=== PATIENT | male | born 1935 | race Caucasian/White ===

== ENCOUNTER 2023-05-29 15:06 | Emergency (ER) | payer OTHER ==
[2023-05-29 16:43] LABS: Absolute Lymphocytes (CBC) 1.2 K/uL (0.7-4.9); Hematocrit 38.6 % (39.6-49.0); Lymphocytes % 19.4 % (15.3-44.8); MCV 102.7 fL (80-100); MPV 8.5 fL (7.6-11.3); Platelets 220 thou/uL (152-406); RBC Red Blood Cell Count 3.76 M/uL (4.33-5.43)
[2023-05-29 16:46] LABS: Protime INR 0.95
[2023-05-29 16:52] LABS: Potassium 4.6 mEq/L (3.5-5.1)
--- NOTE | 2023-05-29 17:14 | RAD REPORT ---
EXAM DESCRIPTION: US - Extrem Venous W Compress Andre - 05/29/2023 5:07 pm CLINICAL HISTORY: worsening leg swelling Bilateral leg edema and swelling. COMPARISON: <Comparisons> TECHNIQUE: Real-time sonographic interrogation of the left and right lower extremity deep venous sys tems was performed. FINDINGS: Normal compressibility, flow augmentation, phasic flow and spontaneous flow is identified in both the left and right lower extremity deep venous systems. IMPRESSION: No sonographic evidence of left or right lower extremity deep venous thrombosis.
--- NOTE | 2023-05-29 17:24 | RAD REPORT ---
EXAM DESCRIPTION: US - Lower Extremity Arterial Bilat - 05/29/2023 5:07 pm CLINICAL HISTORY: PAIN COMPARISON: <Comparisons> TECHNIQUE: Bilateral lower extremity arterial Doppler examination was performed. FINDINGS: Triphasic waveforms are seen throughout both lower extremity arterial systems to the level of the loree salis pedis arteries. No evidence of is significant stenosis or occlusion. IMPRESSION: No evidence of significant peripheral vascular disease.
--- NOTE | 2023-05-29 17:43 | RAD REPORT ---
EXAM DESCRIPTION: CT - Chest For Pe Angio - 05/29/2023 5:19 pm CLINICAL HISTORY: Chest pain. mid scapular pain, rule out PE COMPARISON: <Comparisons> TECHNIQUE: CT angiogram of the pulmonary arteries was performed with MIP. All CT scans are performed using dose optimization technique as appropriate and may include automated exposure control or mA/KV adjustment according to patient size. FINDINGS: No evidence of pulmonary thromboembolism. No acute aortic finding demonstrated. Mild linear opacities are present in both lung bases. Mild diffuse emphysema. Small hiatal hernia. No significant pericardial or pleural fluid. No concerning bony finding. IMPRESSION: No evidence of pulmonary thromboembolism. Mild diffuse COPD with atelectasis in both lung bases.
--- NOTE | 2023-05-29 18:31 | ER ---
Nurse's Notes [facility] Name: Ramesh Mesa Jr Age: 87 yrs Sex: Male : 1935 Arrival Date: 05/29/2023 Time: 15:06 Bed 12 Private MD: Diagnosis: Edema, unspecified Presentation: 05/29 16:10 Chief complaint: Patient states: pain to left leg for a couple of days, edema to LLE x me1 1 month. c/o pain to mid back. Coronavirus screen: Vaccine status: Patient reports receiving the 2nd dose of the covid vaccine. At this time, the client does not indicate any symptoms associated with coronavirus-19. Ebola Screen: No symptoms or risks identified at this time. Initial Sepsis Screen: Does the patient meet any 2 criteria? No. Patient's initial sepsis screen is negative. Does the patient have a suspected source of infection? No. Patient's initial sepsis screen is negative. Risk Assessment: Do you want to hurt yourself or someone else? Patient reports no desire to harm self or others. Onset of symptoms was May 25, 2023. 16:10 Method Of Arrival: Ambulatory nj1 16:10 Acuity: EDIN 3 me1 Historical: - Allergies: 16:13 No Known Allergies; me1 - PMHx: 16:13 Hypertensive disorder; migraines; right hand tremors; neuropathy; me1 - PSHx: 16:13 None; me1 - Immunization history:: Adult Immunizations up to date. - Social history:: Smoking status: Patient denies any tobacco usage or history of. - Family history:: not pertinent. - Hospitalizations: : No recent hospitalization is reported. Screenin:20 [facility] ED Fall Risk Assessment (Adult) History of falling in the last 3 months, me1 including since admission No falls in past 3 months (0 pts) Confusion or Disorientation No (0 pts) Intoxicated or Sedated No (0 pts) Impaired Gait No (0 pts) Mobility Assist Device Used No (0 pt) Altered Elimination No (0 pt) Score/Fall Risk Level 0 - 2 = Low Risk. Abuse screen: Denies threats or abuse. Nutritional screening: No deficits noted. Tuberculosis screening: No symptoms or risk factors identified. Assessment: 17:20 General: Appears uncomfortable, well groomed, well developed, well nourished, Behavior me1 is calm, cooperative, appropriate for age, Reports c/o pain to LLE that has worsened over the past few days. Edema to LLE x 1 month. c/o mid upper back pain that started yesterday. Denies injury. Pain: Complains of pain in left leg and mid upper back Pain does not radiate. Pain currently is 7 out of 10 on a pain scale. Quality of pain is described as aching, sharp, Pain began LLE pain started a few days ago. Mid upper back pain started yesterday. Is continuous, Alleviated by rest, Aggravated by increased activity. Neuro: Level of Consciousness is awake, alert, obeys commands, Oriented to person, place, time, situation, Appropriate for age. Cardiovascular: Capillary refill < 3 seconds Patient's skin is warm and dry. Respiratory: Airway is patent Respiratory effort is even, unlabored, Respiratory pattern is regular, symmetrical. Vital Signs: 16:10 BP 106 / 75; Pulse 64; Resp 18; Temp 98.2(O); Pulse Ox 100% on R/A; Weight 90.72 kg; me1 Height 5 ft. 11 in. ; 17:24 BP 128 / 59; Pulse 61; Resp 18; Pulse Ox 100% on R/A; me1 18:33 BP 132 / 76; Pulse 57; Resp 17; Pulse Ox 100% on R/A; me1 16:10 Body Mass Index 27.89 (90.72 kg, 180.34 cm) [facility] [place]: 15:09 Patient arrived in ED. im 15:10 Carroll Snowden MD is Attending Physician. rn 16:13 Triage completed. me1 16:13 Arm band placed on Patient placed in waiting room. me1 16:25 Inserted saline lock: 20 gauge in right antecubital area, using aseptic technique. nj1 ,using aseptic technique. Ultrasound guided. Catheter tip well visualized within vasculature during placement. Blood collected. 17:05 Julianne Josue, JACOB is Primary Nurse. me1 17:09 Extrem Venous W Compression Andre US In Process Unspecified. EDMS 17:09 Lower Extremity Arterial Bilat US In Process Unspecified. EDMS 17:20 Patient has correct armband on for positive identification. Bed in low position. Call [facility] [place] in reach. Side rails up X2. Provided Education on: POC. Verbalized understanding. . 17:20 No provider procedures requiring assistance completed. me1 17:20 Flushed right antecubital. me1 17:21 CT Chest For PE Angio In Process Unspecified. EDMS 18:33 IV discontinued, intact, bleeding controlled, No redness/swelling at site. Pressure me1 dressing applied. Administered Medications: No medications were administered Medication: 17:20 VIS not applicable for this client. me1 Outcome: 18:30 Discharge ordered by . rn 18:34 Discharged to home ambulatory, with family. me1 18:34 Condition: stable 18:34 Discharge instructions given to patient, family, Instructed on discharge instructions, follow up and referral plans. Demonstrated understanding of instructions, follow-up care. 18:37 Patient left the ED. me1 Signatures: Dispatcher [employer] EDCarroll Knight MD MD rn Jaco, Norma RN RN nj1 Sonya Jarquin Michelle RN RN me1
--- NOTE | 2023-05-29 18:31 | EDPHYS ---
Physician Documentation [facility] Name: Ramesh Mesa Jr Age: 87 yrs Sex: Male : 1935 Arrival Date: 05/29/2023 Time: 15:06 Bed 12 Private MD: ED Physician Carroll Snowden HPI: 05/29 15:48 This 87 yrs old Male presents to ER via Unassigned with complaints of Leg Pain - left, rn Back Pain - middle, Sent by Dr. Armando. 15:48 The patient presents with pain. The complaints affect the left calf. rn 15:48 Modifying factors: The symptoms are alleviated by nothing. the symptoms are aggravated rn by movement, weight bearing. Severity of symptoms: At their worst the symptoms were moderate, in the emergency department the symptoms are unchanged. The patient has experienced similar episodes in the past. The patient has been recently seen by a physician:. Patient sent in by Dr. Armando for evaluation of left leg pain. Patient had an ultrasound of the right lower extremity recently but now having left leg pain. Denies trauma. No fever. Increased swelling of bilateral lower extremities. No history of DVT or PE. Also reports slight pain mid scapular region. No chest pain. No shortness of breath.. Historical: - Allergies: 16:13 No Known Allergies; me1 - PMHx: 16:13 Hypertensive disorder; migraines; right hand tremors; neuropathy; me1 - PSHx: 16:13 None; me1 - Immunization history:: Adult Immunizations up to date. - Social history:: Smoking status: Patient denies any tobacco usage or history of. - Family history:: not pertinent. - Hospitalizations: : No recent hospitalization is reported. ROS: 15:48 Constitutional: Negative for fever, chills, and weight loss, Cardiovascular: Negative rn for chest pain, palpitations, and edema, Respiratory: Negative for shortness of breath, cough, wheezing, and pleuritic chest pain, Abdomen/GI: Negative for abdominal pain, nausea, vomiting, diarrhea, and constipation, Back: Positive for mid/upper back pain MS/Extremity: Positive for swelling and pain to both lower legs Skin: Negative for injury, rash, and discoloration, Neuro: Negative for headache, weakness, numbness, tingling, and seizure. Exam: 15:48 Constitutional: This is a well developed, well nourished patient who is awake, alert, rn and in no acute distress. Ambulatory to triage without difficulty or assistance Head/Face: Normocephalic, atraumatic. Cardiovascular: Regular rate and rhythm. No pulse deficits. Respiratory: No increased work of breathing, no retractions or nasal flaring. Skin: Warm, dry, no evidence of cellulitis MS/ Extremity: Pulses equal, no cyanosis. Neurovascular intact. Full, normal range of motion. Left lower extremity with swelling worse than right lower extremity, 2+ pitting edema. Tenderness along calf. No tenderness popliteal fossa. No streaking. No fluctuance. No open wounds. Neuro: Awake and alert, GCS 15 Vital Signs: 16:10 BP 106 / 75; Pulse 64; Resp 18; Temp 98.2(O); Pulse Ox 100% on R/A; Weight 90.72 kg; me1 Height 5 ft. 11 in. ; 17:24 BP 128 / 59; Pulse 61; Resp 18; Pulse Ox 100% on R/A; me1 18:33 BP 132 / 76; Pulse 57; Resp 17; Pulse Ox 100% on R/A; me1 16:10 Body Mass Index 27.89 (90.72 kg, 180.34 cm) me1 MDM: 15:10 Patient medically screened. rn 18:29 Differential diagnosis: DVT, PE, dependent edema, arterial insufficiency, Bunch's cyst. rn Data reviewed: vital signs, nurses notes, lab test result(s), EKG, radiologic studies, CT scan, ultrasound, and as a result, I will discharge patient. Counseling: I had a detailed discussion with the patient and/or guardian regarding the historical points, exam findings, and any diagnostic results supporting the discharge/admit diagnosis, lab results, radiology results, the need for outpatient follow up, to return to the emergency department if symptoms worsen or persist or if there are any questions or concerns that arise at home. Special discussion: I discussed with the patient/guardian in detail that at this point there is no indication for admission to the hospital. It is understood, however, that if the symptoms persist or worsen the patient needs to return immediately for re-evaluation. ED course: No acute findings on work-up here, no specific cause of lower extremity edema, but normal venous and arterial ultrasounds and negative CT PE protocol. No signs of infection. Consulted with his PCP Dr. Armando and andrew to DC home with return precautions and follow-up. 05/29 15:15 Order name: CBC with Diff; Complete Time: 16:56 rn 05/29 15:15 Order name: Basic Metabolic Panel; Complete Time: 16:56 rn 05/29 15:15 Order name: Protime (+inr); Complete Time: 16:56 rn 05/29 15:15 Order name: Ptt, Activated; Complete Time: 16:56 rn 05/29 15:25 Order name: Troponin High Sensitivity; Complete Time: 16:56 rn 05/29 15:15 Order name: Extrem Venous W Compression Andre US; Complete Time: 17:16 rn 05/29 15:24 Order name: Lower Extremity Arterial Bilat US; Complete Time: 17:44 rn 05/29 15:26 Order name: CT Chest For PE Angio; Complete Time: 17:44 rn 05/29 15:25 Order name: EKG; Complete Time: 15:26 rn 05/29 15:15 Order name: IV Start; Complete Time: 18:37 rn 05/29 15:25 Order name: EKG - Nurse/Tech; Complete Time: 17:38 rn Administered Medications: No medications were administered Disposition Summary: 05/29/23 18:30 Discharge Ordered Location: Home rn Problem: an ongoing problem rn Symptoms: are unchanged rn Condition: Stable rn Diagnosis - Edema, unspecified rn Followup: rn - With: Private Physician - When: As needed - Reason: Recheck today's complaints, Re-evaluation by your physician Discharge Instructions: - Discharge Summary Sheet rn - Peripheral Edema rn Forms: - Medication Reconciliation Form rn - Thank You Letter rn - Antibiotic divorce attorney - Prescription Opioid Use rn - Patient Portal Instructions rn - Leadership Thank You Letter rn Signatures: Dispatcher [employer] Carroll Mccracken MD MD rn Julianne Josue, RN RN me1
[2023-05-29 18:41] VITALS: TEMP 98.2; O2SAT 100
[2023-05-29 18:44] VITALS: BP 132/76
--- NOTE | 2023-05-30 14:38 | EKG ---
Test Date: 2023-05-29 Test Time: 17:27:44 Spa Manager/Esthetician: MEASUREMENT RESULTS: Intervals: Rate: 60 [place]: 238 QRSD: 88 QT: 440 QTc: 440 [place] Bottom: P: 71 [place]: 238 QRS: -5 T: 51 INTERPRETIVE STATEMENTS: Sinus rhythm with 1st degree AV block Otherwise normal ECG No previous ECG available for comparison Electronically Signed On 05-30-23 14:36:17 CDT by Champ Turner
== END 2023-05-29 18:37 | disposition home or self-care (01) ==
LOC: ER 15:06
DX: R60.9 Edema, unspecified (principal); M79.662 Pain in left lower leg; M79.661 Pain in right lower leg; G62.9 Polyneuropathy, unspecified; I10 Essential (primary) hypertension
CPT/HCPCS: 93005; 85025; 80048; 36415; 85610; 85730; 84484; 71275; 93925; 93970; 99284; Q9967

== ENCOUNTER 2023-07-31 20:22 | Emergency (ER) | payer OTHER ==
--- NOTE | 2023-07-31 21:20 | ER ---
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 20:43 Coronavirus screen: Vaccine status: Patient reports receiving the 2nd dose of the covid vc1 vaccine. Client denies travel out of the [place] in the last 14 days. At this time, the client does not indicate any symptoms associated with coronavirus-19. Ebola Screen: Patient negative for fever greater than or equal to 101.5 degrees Fahrenheit, and additional compatible Ebola Virus Disease symptoms Patient denies exposure to infectious person. Patient denies travel to an Ebola-affected area in the 21 days before illness onset. No symptoms or risks identified at this time. Initial Sepsis Screen: Does the patient meet any 2 criteria? No. Patient's initial sepsis screen is negative. Does the patient have a suspected source of infection? No. Patient's initial sepsis screen is negative. Risk Assessment: Do you want to hurt yourself or someone else? Patient reports no desire to harm self or others. Onset of symptoms was July 31, 2023 at 12:00. 20:43 Method Of Arrival: Ambulatory vc1 20:43 Acuity: EDIN 4 vc1 Triage Assessment: 20:43 General: Appears in no apparent distress. comfortable, Behavior is calm, cooperative, vc1 appropriate for age. General: bleeding noted to left forearm. Pain: Complains of pain in dorsal aspect of left forearm Pain does not radiate. EENT: No deficits noted. No signs and/or symptoms were reported regarding the EENT system. Neuro: Level of Consciousness is awake, alert, obeys commands, Oriented to person, place, time, situation, Appropriate for age. Cardiovascular: No deficits noted. Respiratory: Airway is patent Respiratory effort is even, unlabored, Respiratory pattern is regular, symmetrical. GI: No deficits noted. No signs and/or symptoms were reported involving the gastrointestinal system. : No deficits noted. No signs and/or symptoms were reported regarding the genitourinary system. Derm: Wound noted dorsal aspect of left forearm. Musculoskeletal: No deficits noted. No signs and/or symptoms reported regarding the musculoskeletal system. Historical: - Allergies: 20:55 No Known Allergies; vc1 - PMHx: 20:55 Hypertensive disorder; Migraines; neuropathy; right hand tremors; Dementia; Depressive vc1 disorder; - PSHx: 20:55 None; vc1 - Immunization history:: Client reports receiving the 2nd dose of the Covid vaccine. - Social history:: Smoking status: Patient denies any tobacco usage or history of. - Family history:: not pertinent. Screenin:43 [facility] ED Fall Risk Assessment (Adult) History of falling in the last 3 months, vc1 including since admission No falls in past 3 months (0 pts) Confusion or Disorientation No (0 pts) Intoxicated or Sedated No (0 pts) Impaired Gait No (0 pts) Mobility Assist Device Used No (0 pt) Altered Elimination No (0 pt) Score/Fall Risk Level 0 - 2 = Low Risk Oriented to surroundings, Maintained a safe environment, Educated pt \T\ family on fall prevention, incl call for assistance when getting out of bed. Abuse screen: Denies threats or abuse. Nutritional screening: No deficits noted. Tuberculosis screening: No symptoms or risk factors identified. Assessment: 21:27 Reassessment: Patient appears in no apparent distress at this time. Patient and/or jb4 family updated on plan of care and expected duration. Pain level reassessed. Patient is alert, oriented x 3, equal unlabored respirations, skin warm/dry/pink. see triage note. Vital Signs: 20:43 BP 151 / 70; Pulse 63; Resp 16; Temp 99; Pulse Ox 98% ; Weight 87.09 kg; Height 5 ft. vc1 10 in. ; Pain 0/10; 20:43 Body Mass Index 27.55 (87.09 kg, 177.8 cm) vc1 20:43 Pain Scale: Adult vc1 ED Course: 20:24 Patient arrived in ED. jj6 20:27 Jan Garcia MD is Attending Physician. rt 20:43 Arm band placed on right wrist. vc1 20:54 Triage completed. vc1 20:57 Provided Education on: surgicell. vc1 21:27 Wily Romero, RN is Primary Nurse. jb4 21:28 No provider procedures requiring assistance completed. Patient did not have IV access jb4 during this emergency room visit. Administered Medications: No medications were administered Medication: 20:58 VIS not applicable for this client. vc1 Outcome: 21:19 Discharge ordered by . rt 21:27 Discharged to home ambulatory, jb4 21:27 Condition: stable 21:27 Discharge instructions given to patient, Instructed on discharge instructions, follow up and referral plans. Demonstrated understanding of instructions, follow-up care, 21:28 Patient left the ED. jb4 Signatures: Wily Romero, RN RN jb4 Rae Sanchez jj6 Zarina Austin RN RN vc1 Jan Garcia MD MD rt
--- NOTE | 2023-07-31 21:20 | EDPHYS ---
Physician Documentation [facility] Name: Ramesh Mesa Jr Age: 87 yrs Sex: Male : 1935 Arrival Date: 07/31/2023 Time: 20:22 Bed 11 Private MD: BLAS Physician Jan Garcia HPI: 07/31 23:01 This 87 yrs old Male presents to ER via Ambulatory with complaints of Post Surgical rt Bleeding. 23:01 Patient had a Mohs surgery performed on his left forearm yesterday. 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 Denies other acute complaints at this time. Symptoms are mild in severity, no other aggravating or elevating factors.. Historical: - Allergies: 20:55 No Known Allergies; vc1 - PMHx: 20:55 Hypertensive disorder; Migraines; neuropathy; right hand tremors; Dementia; Depressive vc1 disorder; - PSHx: 20:55 None; vc1 - Immunization history:: Client reports receiving the 2nd dose of the Covid vaccine. - Social history:: Smoking status: Patient denies any tobacco usage or history of. - Family history:: not pertinent. ROS: 23:01 Constitutional: Negative for fever, chills, and weight loss, Cardiovascular: Negative rt for chest pain, palpitations, and edema, Respiratory: Negative for shortness of breath, cough, wheezing, and pleuritic chest pain, Abdomen/GI: Negative for abdominal pain, nausea, vomiting, diarrhea, and constipation, Neuro: Negative for headache, weakness, numbness, tingling, and seizure, Psych: Negative for depression, anxiety, suicide ideation, homicidal ideation, and hallucinations, 23:01 Skin: Positive for Surgical wound with bleeding, Exam: 23:01 Constitutional: This is a well developed, well nourished patient who is awake, alert, rt and in no acute distress. Head/Face: Normocephalic, atraumatic. Chest/axilla: Normal chest wall appearance and motion. Nontender with no deformity. No lesions are appreciated. Cardiovascular: Regular rate and rhythm with a normal S1 and S2. No gallops, murmurs, or rubs. Normal PMI, no JVD. No pulse deficits. Respiratory: Lungs have equal breath sounds bilaterally, clear to auscultation and percussion. No rales, rhonchi or wheezes noted. No increased work of breathing, no retractions or nasal flaring. Abdomen/GI: Soft, non-tender, with normal bowel sounds. No distension or tympany. No guarding or rebound. No evidence of tenderness throughout. Neuro: Awake and alert, GCS 15, oriented to person, place, time, and situation. Cranial nerves II-XII grossly intact. Motor strength 5/5 in all extremities. Sensory grossly intact. Cerebellar exam normal. Normal gait. Psych: Awake, alert, with orientation to person, place and time. Behavior, mood, and affect are within normal limits. 23:01 Skin: Surgical defect noted on left forearm. There is very small area of slight oozing noted at the verge of the incision, otherwise no bleeding, discharge.. Vital Signs: 20:43 BP 151 / 70; Pulse 63; Resp 16; Temp 99; Pulse Ox 98% ; Weight 87.09 kg; Height 5 ft. vc1 10 in. ; Pain 0/10; 20:43 Body Mass Index 27.55 (87.09 kg, 177.8 cm) vc1 20:43 Pain Scale: Adult vc1 MDM: 20:41 Patient medically screened. rt 23:01 Differential Diagnosis Postsurgical bleeding. Data reviewed: vital signs, nurses notes. rt ED course: There is a very small amount of bleeding, controlled with Surgicel, wound was redressed, observed for period of time with no further bleeding. Is stable for outpatient care.. Administered Medications: No medications were administered Disposition Summary: 07/31/23 21:19 Discharge Ordered Notes: Location: Home rt Problem: new rt Symptoms: are resolved rt Condition: Stable rt Diagnosis - Postsurgical bleeding rt Followup: rt - With: Private Physician - When: 5 - 6 days - Reason: Discharge Instructions: - Discharge Summary Sheet rt - Wound Care, Adult rt Forms: - Medication Reconciliation Form rt - Thank You Letter rt - Antibiotic Education rt - Prescription Opioid Use rt - Patient Portal Instructions rt - Leadership Thank You Letter rt Signatures: Zarina Austin RN RN vc1 Jan Garcia MD MD rt
[2023-07-31 21:48] VITALS: BP 151/70; TEMP 99; O2SAT 98
== END 2023-07-31 21:28 | disposition home or self-care (01) ==
LOC: ER 20:22
DX: L76.21 Postprocedural hemorrhage of skin and subcutaneous tissue following a dermatologic procedure (principal); I10 Essential (primary) hypertension; F03.90 Unspecified dementia, unspecified severity, without behavioral disturbance, psychotic disturbance, mood disturbance, and anxiety; F32.A Depression, unspecified
CPT/HCPCS: 99282

== ENCOUNTER 2024-05-08 10:24 | Emergency (ER) | payer OTHER ==
--- OUTSIDE RECORDS SUMMARY | 2024-05-08 10:28 | XMS REPORT | Continuity of Care Document ---
Author Name Unknown Address [address] [place], [place] [address]onnect Address [address] [place] [id number] Care Team Providers Care Abap Developer Name Role Phone Unavailable Unavailable Unavailable
--- NOTE | 2024-05-08 11:55 | RAD REPORT ---
EXAM DESCRIPTION: CT - Head C Spine Cap Wo Con - 05/08/2024 11:24 am CLINICAL HISTORY: Trauma, head and neck injury. Chest, abdomen and pelvis pain. TRAUMA COMPARISON: Chest For Pe Angio dated 05/29/2023 TECHNIQUE: CT head without contrast. CT cervical spine without contrast with coronal and sagittal reformatted images. CT chest, abdomen and pelvis with coronal and sagittal reformatted images of the spine. All CT scans are performed using dose optimization technique as appropriate and may include automated exposure control or mA/KV adjustment according to patient size. FINDINGS: CT HEAD WITHOUT CONTRAST: No intracranial hemorrhage, hydrocephalus or extra-axial fluid collection. No acute large vascular te rritory infarct. Tiny mucous retention cyst left maxillary sinus. The calvarium is intact. CT CERVICAL SPINE WITHOUT CONTRAST: No fracture or subluxation. The prevertebral soft tissues are normal in thickness.C5-6 ACDF. Anterolisthesis of C3 on C4 is likel y related to underlying degenerative changes. Multilevel degenerative changes are present in the spin e. Varying degrees of neural foraminal narrowing noted. No high-grade central spinal stenosis. CT CHEST, ABDOMEN, PELVIS: Thorax: Chest Wall: No abnormal mass Lungs: No acute abnormality. Pleura: No effusions or pneumothorax. Kerri/Mediastinum: No lymphadenopathy. Aorta/Pulmonary Arteries: Unremarkable Heart: Normal size. Coronary artery calcifications. Abdomen/Pelvis: Liver: No acute abnormality or suspicious lesions. Biliary: No biliary ductal dilatation. Stomach: No significant focal abnormality. Duodenum: No significant focal abnormality. Pancreas: No significant abnormality. Spleen: No significant abnormality. Adrenal: No suspicious lesions. Kidney/ureter: No hydronephrosis. Punctate left renal calculi. Retroperitoneum: No retroperitoneal adenopathy. Vascular: No aneurysm. Bowel: Diverticulosis without diverticulitis.. Peritoneum: No ascites or free air. Bladder: Grossly unremarkable. Reproductive: No adnexal masses. Bones: Remote T4 compression fracture with approximately 20% loss of height. Mild superior endplate d eformity at L4 is favored chronic. Other: n/a IMPRESSION: Negative for acute traumatic findings.
[2024-05-08 12:25] LABS: Specific Gravity 1.024 (1.005-1.030); Sqamous Epithelial <5 /HPF (None Seen); Urine Bacteria None Seen /HPF (<20); Urine Bilirubin NEGATIVE (Negative); Urine Blood Negative (Negative); Urine Clarity Clear (Clear); Urine Color Yellow (Yellow); Urine Culture Reflex Order NOT NEEDED; Urine Glucose NEGATIVE (Negative); Urine Ketones NEGATIVE (Negative); Urine Micro Reflex YN NO BILL MICROSCOPIC; Urine Mucus Slight /HPF (None Seen); Urine Nitrite NEGATIVE (Negative); Urine Protein NEGATIVE (Negative); Urine RBC <5 /HPF (None Seen); Urine Urobilinogen Normal (Normal); Urine WBC <5 /HPF (<5); Urine pH 5.5 (5.0-7.0)
--- NOTE | 2024-05-08 12:28 | ER ---
Nurse's Notes [facility] Name: Ramesh Mesa Jr Age: 88 yrs Sex: Male : 1935 Arrival Date: 05/08/2024 Time: 10:24 Bed 14 Private MD: Diagnosis: Fall on same level, unspecified Presentation: 05/08 10:45 Chief complaint: Slipped getting out of shower last night, hit back of head and hb buttocks, negative LOC. Coronavirus screen: At this time, the client does not indicate any symptoms associated with coronavirus-19. Ebola Screen: No symptoms or risks identified at this time. Initial Sepsis Screen: Does the patient meet any 2 criteria? No. Patient's initial sepsis screen is negative. Does the patient have a suspected source of infection? No. Patient's initial sepsis screen is negative. Risk Assessment: Do you want to hurt yourself or someone else? Patient reports no desire to harm self or others. Onset of symptoms was May 07, 2024. 10:45 Method Of Arrival: Ambulatory hb 10:45 Acuity: EDIN 4 hb Triage Assessment: 10:45 General: Appears in no apparent distress. comfortable, Behavior is calm, cooperative, bp appropriate for age. Pain: Complains of pain in buttocks. EENT: No deficits noted. Neuro: No deficits noted. Cardiovascular: No deficits noted. Respiratory: No deficits noted. GI: No signs and/or symptoms were reported involving the gastrointestinal system. : No signs and/or symptoms were reported regarding the genitourinary system. Derm: No deficits noted. Musculoskeletal: No deficits noted. Historical: - Allergies: 10:49 No Known Allergies; hb - Home Meds: 10:49 losartan 50 mg oral tablet daily [Active]; hydrochlorothiazide 12.5 mg Oral tablet hb daily [Active]; meloxicam 15 mg oral tablet daily [Active]; Topamax 25 mg Oral tablet 2 times per day [Active]; memantine 5 mg oral tablet daily [Active]; quetiapine 25 mg oral tablet every day at bedtime [Active]; escitalopram oxalate 10 mg oral tablet daily [Active]; propranolol 10 mg Oral tablet 2 times per day [Active]; amitriptyline 25 mg Oral tablet every day at bedtime [Active]; gabapentin 100 mg oral capsule 2 times per day [Active]; Zyrtec 10 mg oral tablet daily [Active]; Iron CR Oral daily [Active]; multivitamin oral tablet daily [Active]; - PMHx: 10:49 Dementia; depressive disorder; Hypertensive disorder; Migraines; neuropathy; right hand hb tremors; - Immunization history:: Adult Immunizations up to date. - Infectious Disease History:: Denies. - Social history:: Smoking status: Patient denies any tobacco usage or history of. Screenin:34 [facility] ED Fall Risk Assessment (Adult) History of falling in the last 3 months, bp including since admission Yes- single mechanical fall (1 pt) Confusion or Disorientation No (0 pts) Intoxicated or Sedated No (0 pts) Impaired Gait No (0 pts) Mobility Assist Device Used No (0 pt) Altered Elimination No (0 pt) Score/Fall Risk Level 0 - 2 = Low Risk. Abuse screen: Denies threats or abuse. Denies injuries from another. Nutritional screening: No deficits noted. Tuberculosis screening: No symptoms or risk factors identified. Assessment: 10:45 General: Appears in no apparent distress. Behavior is appropriate for age. bp 12:34 Reassessment: Patient states symptoms have improved. bp Vital Signs: 10:45 BP 111 / 87; Pulse 73; Resp 16; Temp 97.1(TE); Pulse Ox 100% on R/A; Weight 95.25 kg; hb Height 5 ft. 10 in. ; Pain 6/10; 12:35 BP 119 / 75; Pulse 70; Resp 16; Pulse Ox 100% ; bp 10:45 Body Mass Index 30.13 (95.25 kg, 177.8 cm) hb 10:45 Pain Scale: Adult hb ED Course: 10:27 Patient arrived in ED. ra3 10:29 Marisol Seo PA-C is PHCP. sb4 10:29 Carroll Snowden MD is Attending Physician. sb4 10:48 Triage completed. hb 10:53 Arm band placed on. hb 10:54 Manoj Pena, JACOB is Primary Nurse. bp 11:26 CT Traumagram (Head C Spine CAP wo con) In Process Unspecified. EDMS 12:34 Patient has correct armband on for positive identification. Provided Education on: n/a. bp 12:34 No provider procedures requiring assistance completed. Patient did not have IV access bp during this emergency room visit. Administered Medications: No medications were administered Medication: 12:34 VIS not applicable for this client. bp Outcome: 12:27 Discharge ordered by MD. spivey 12:34 Discharged to home ambulatory, with family, bp 12:34 Condition: stable 12:34 Discharge instructions given to patient, family, Instructed on discharge instructions, follow up and referral plans. Demonstrated understanding of instructions, follow-up care, 12:35 Patient left the ED. bp Signatures: Dispatcher [employer] EDMS Rebecca Keller RN RN hb Manoj Pena RN RN bp Marisol Seo, PA-C PA-C sb4 Yanci Reynoso ra3 Corrections: (The following items were deleted from the chart) 10:48 10:44 Chief complaint: hb hb 10:49 10:45 BP 111 / 87; Pulse 73bpm; Resp 16bpm; Pulse Ox 100% RA; Temp 97.1F Temporal; Pain hb 6/10, Adult; hb 10:53 10:49 Home Meds: topiramate 25 mg oral tablet 2 tabs 2 times per day; hb hb
--- NOTE | 2024-05-08 12:28 | EDPHYS ---
Physician Documentation [facility] Name: Ramesh Mesa Jr Age: 88 yrs Sex: Male : 1935 Arrival Date: 05/08/2024 Time: 10:24 Bed 14 Private MD: ED Physician Carroll Snowden HPI: 05/08 10:44 This 88 yrs old Male presents to ER via Unassigned with complaints of Fall Injury. sb4 10:44 slipped and fell getting out of the shower last night. hit the back of his head. sb4 complaining of pain in his buttocks. denies any LOC, was able to get up on his own. no blood thinners. is ambulating without difficulty . Historical: - Allergies: 10:49 No Known Allergies; hb - Home Meds: 10:49 losartan 50 mg oral tablet daily [Active]; hydrochlorothiazide 12.5 mg Oral tablet hb daily [Active]; meloxicam 15 mg oral tablet daily [Active]; Topamax 25 mg Oral tablet 2 times per day [Active]; memantine 5 mg oral tablet daily [Active]; quetiapine 25 mg oral tablet every day at bedtime [Active]; escitalopram oxalate 10 mg oral tablet daily [Active]; propranolol 10 mg Oral tablet 2 times per day [Active]; amitriptyline 25 mg Oral tablet every day at bedtime [Active]; gabapentin 100 mg oral capsule 2 times per day [Active]; Zyrtec 10 mg oral tablet daily [Active]; Iron CR Oral daily [Active]; multivitamin oral tablet daily [Active]; - PMHx: 10:49 Dementia; depressive disorder; Hypertensive disorder; Migraines; neuropathy; right hand hb tremors; - Immunization history:: Adult Immunizations up to date. - Infectious Disease History:: Denies. - Social history:: Smoking status: Patient denies any tobacco usage or history of. ROS: 10:44 Constitutional: Negative for fever, chills, and weight loss, sb4 10:44 MS/extremity: Positive for injury or acute deformity, pain, of the buttocks, 10:44 All other systems are negative, Exam: 10:44 Constitutional: This is a well developed, well nourished patient who is awake, alert, sb4 and in no acute distress. Head/Face: Normocephalic, atraumatic. Eyes: Extra-ocular motions intact. Periorbital areas with no swelling, redness, or edema. ENT: Mucous membranes moist. Cardiovascular: Regular rate and rhythm with a normal S1 and S2. Respiratory: Lungs have equal breath sounds bilaterally, clear to auscultation and percussion. No rales, rhonchi or wheezes noted. No increased work of breathing, no retractions or nasal flaring. Abdomen/GI: Soft, non-tender, no distension. Skin: Warm, dry with normal turgor. Normal color with no rashes, no lesions, and no evidence of cellulitis. MS/ Extremity: Pulses equal, no cyanosis. Neurovascular intact. Full, normal range of motion. Neuro: Awake and alert, GCS 15, oriented to person, place, time, and situation. Motor strength 5/5 in all extremities. Sensory grossly intact. Vital Signs: 10:45 BP 111 / 87; Pulse 73; Resp 16; Temp 97.1(TE); Pulse Ox 100% on R/A; Weight 95.25 kg; hb Height 5 ft. 10 in. ; Pain 6/10; 12:35 BP 119 / 75; Pulse 70; Resp 16; Pulse Ox 100% ; bp 10:45 Body Mass Index 30.13 (95.25 kg, 177.8 cm) hb 10:45 Pain Scale: Adult hb MDM: 10:30 Patient medically screened. sb4 12:27 Data reviewed: vital signs, nurses notes, lab test result(s), radiologic studies, and sb4 as a result, I will discharge patient. Care significantly affected by the following chronic conditions: Hypertension. Counseling: I had a detailed discussion with the patient and/or guardian regarding the historical points, exam findings, and any diagnostic results supporting the discharge/admit diagnosis, lab results, radiology results, to return to the emergency department if symptoms worsen or persist or if there are any questions or concerns that arise at home. 05/08 10:44 Order name: [facility]; Complete Time: 12:26 sb4 05/08 10:44 Order name: CT Traumagram (Head C Spine CAP wo con); Complete Time: 11:57 sb4 Administered Medications: No medications were administered Disposition: 13:52 Co-signature as Attending Physician, Carroll Snowden MD I reviewed the patient's care rn provided by the Advanced Practice Provider and agree with the diagnosis and treatment plan. Disposition Summary: 05/08/24 12:27 Discharge Ordered Notes: Location: Home sb4 Problem: new sb4 Symptoms: are unchanged sb4 Condition: Stable sb4 Diagnosis - Fall on same level, unspecified sb4 Followup: sb4 - With: Private Physician - When: As needed - Reason: Recheck today's complaints, Re-evaluation by your physician Discharge Instructions: - Discharge Summary Sheet sb4 - Fall Prevention in the Home, Adult, [id number] sb4 Forms: - Patient Portal Instructions sb4 - Leadership Thank You Letter sb4 Signatures: Dispatcher [employer] EDCarroll Knight MD MD rn Baxter, Heather, RN RN hb Brown, Sophia, PA-C PAMaryana sb4 Corrections: (The following items were deleted from the chart) 10:53 10:49 Home Meds: topiramate 25 mg oral tablet 2 tabs 2 times per day; day
[2024-05-08 12:40] VITALS: TEMP 97.1; O2SAT 100
[2024-05-08 12:41] VITALS: BP 119/75
== END 2024-05-08 12:35 | disposition home or self-care (01) ==
LOC: ER 10:24
DX: R52 Pain, unspecified (principal); W18.30XA Fall on same level, unspecified, initial encounter
CPT/HCPCS: 70450; 71250; 72125; 81001; 99282

== ENCOUNTER 2024-06-10 11:59 | Observation (INO) | payer OTHER ==
[2024-06-10] MEDS ORDERED: METOPROLOL TARTRATE 5 MG/5 ML INJ IV ONE (12:35)
[2024-06-10] MEDS ORDERED: NA CHLORIDE 0.9% 500 ML ONE (12:35)
[2024-06-10] MEDS ORDERED: MAGNESIUM SULFATE 1 gm IVPB 1 GM/100 ML BAG IV ONE (12:35)
[2024-06-10 12:43] LABS: Absolute Basophils 0.1 K/uL (0-0.5); Absolute Eosinophils 0.1 K/uL (0-0.5); Absolute Lymphocytes (CBC) 0.6 K/uL (0.7-4.9); Absolute Monocytes 0.9 K/uL (0.1-1.3); Absolute Neutrophil 9.3 K/uL (1.8-8.0); Basophils % 0.5 % (0-1.3); Eosinophils % 1.1 % (0-4.4); Hematocrit 37.9 % (39.6-49.0); Hemoglobin 12.3 g/dL (13.6-17.9); Lymphocytes % 5.5 % (15.3-44.8); MCH 32.8 pg (27.0-35.0); MCHC 32.6 g/dL (32.0-36.0); MCV 100.6 fL (80-100); MPV 8.8 fL (7.6-11.3); Monocytes % 8.1 % (3.3-12.3); Neutrophils % 84.8 % (41.7-73.7); Platelets 197 thou/uL (152-406); RBC Red Blood Cell Count 3.77 M/uL (4.33-5.43); Red Cell Distribution Width 18.3 % (12.1-15.2)
[2024-06-10 12:52] LABS: PT Prothrombin Time 11.9 SECONDS (9.4-12.5); Protime INR 1.06
[2024-06-10 13:05] LABS: Albumin 3.5 g/dL (3.4-5.0); Albumin/Globulin Ratio 1.3 (1.1-1.8); Anion Gap 10.3 mEq/L (5.0-15.0); Bilirubin Direct 0.2 mg/dL (0-0.2); Bilirubin Indirect, Calculated 0.8 mg/dL (0.2-0.8); Globulin 2.8 g/dL (2.3-3.5); Potassium 3.3 mEq/L (3.5-5.1); Protein, Total 6.3 g/dL (6.4-8.2); Thyroid Stimulating Hormone 2.15 uIU/mL (0.358-3.740); Troponin High Sensitivity 10.7 pg/mL (<58.9)
--- NOTE | 2024-06-10 13:11 | RAD REPORT ---
EXAMINATION: CT HEAD WITHOUT CONTRAST CT CERVICAL SPINE WITHOUT CONTRAST CLINICAL INDICATION: Male, 88 years old. Pain TECHNIQUE: Axial CT images from the skull base to the vertex without intravenous contrast. Axial CT i mages through the cervical spine were obtained without intravenous contrast. Sagittal and coronal reformatted images were created from the data set. Coronal and sagittal reformatted images were creat ed from the data set. One or more of the following dose reduction techniques were used: Automated exposure control, adjustment of the mA and/or kV according to patient size, and/or iterative reconstr uction. Unless otherwise specified, incidental findings do not require dedicated imaging follow-up. [id number]. COMPARISON: No prior exam. FINDINGS: Head: INTRACRANIAL: No acute intracranial hemorrhage or extraaxial collection. No abnormal brain parenchyma l density. No evidence of acute infarction. The ventricles are normal in size and morphology. No mass or midline shift. Chronic vessel ischemic changes. Cerebral atrophy. VASCULATURE: No visualized abnormalities in the arteries or dural venous sinuses. SCALP/SKULL: No significant soft tissue or osseous abnormalities. SINUSES: The visualized paranasal sinuses and mastoid air cells are predominantly clear. ORBITS: No significant abnormalities in the visualized orbital structures. Cervical spine: ALIGNMENT: Anterolisthesis of C3 on C4 likely related to underlying degenerative changes. Loss of nor mal cervical lordosis. Also anterolisthesis is present of C7 on T1. BONE: Vertebral body heights are maintained. No aggressive osseous lesions. Status post C5-6 ACDF. Th e lowermost screw terminates at the C6-7 disc space. DISCS: Varying degrees of disc height loss. LEVELS: Multilevel cervical spondylosis with varying degrees of neural foraminal narrowing. No high-g rade Central spinal stenosis identified. SOFT TISSUE: No significant abnormalities in the soft tissue of the neck. The visualized lung apices are clear. IMPRESSION: No acute intracranial abnormality. No acute fracture or traumatic malalignment of the cervical spine.
--- NOTE | 2024-06-10 13:17 | RAD REPORT ---
EXAMINATION: XR PELVIS CLINICAL INDICATION: Male, 88 years old. Pain TECHNIQUE: 1 view radiograph of the pelvis were obtained. [id number]. COMPARISON: No prior exam. FINDINGS: No pelvic or hip fracture identified. Degenerative changes are present at acetabula. The fe moral heads appear located. Degenerative changes are present in the lower spine. IMPRESSION: No pelvic fracture identified.
--- NOTE | 2024-06-10 13:17 | RAD REPORT ---
EXAMINATION: XR BONE/JOINT CLINICAL INDICATION: Male, 88 years old. Pain TECHNIQUE: 2 view radiograph of the right hip were obtained. [id number]. COMPARISON: No prior exam. FINDINGS: No right hip fracture identified. Moderate right acetabular degenerative changes are presen t. No dislocation. IMPRESSION: No right hip fracture or dislocation.
--- NOTE | 2024-06-10 13:19 | RAD REPORT ---
EXAMINATION: ONE VIEW CHEST XR CLINICAL INDICATION: Male, 88 years old. Cough. TECHNIQUE: 1 View, AP supine, X-ray of the chest was performed. [id number]. COMPARISON: No prior exam. FINDINGS: Lungs and pleura: Clear lungs. No effusion. Heart and mediastinum: Normal heart size. Unremarkable mediastinal contours. Osseous structures: No acute abnormality. Tubes/lines: None Other: None. IMPRESSION: No acute intrathoracic abnormality.
--- NOTE | 2024-06-10 13:40 | RAD REPORT ---
EXAM: CT CHEST, ABDOMEN AND PELVIS WITHOUT CONTRAST CLINICAL INDICATION: Male, 88 years old. Pain TECHNIQUE: CT chest, abdomen and pelvis was performed, without IV contrast, as per department protoco l. Axial, sagittal and coronal reconstructions were obtained. One or more of the following dose reduction techniques were used: Automated exposure control, adjustment of the mA and/or kV according to the patient size, and/or iterative reconstruction. Unless otherwise specified, incidental findings do not require dedicated imaging follow-up. [id number]. COMPARISON: No prior exam. FINDINGS: The lack of intravenous contrast limits the sensitivity of this exam for evaluation of solid visceral organs, vascular structures, and retroperitoneum. LOWER NECK: Visualized thyroid gland and soft tissues are normal. LUNGS AND AIRWAYS: Airways are clear. No evidence of airspace or interstitial process. No nodules. Mi ld dependent atelectasis. PLEURA: No pleural effusion. No pneumothorax. Hemidiaphragms are normally positioned. MEDIASTINUM AND LYMPH NODES: No mediastinal mass or fluid collection. Normal size mediastinal, hilar, and axillary lymph nodes. Small hilar hernia THORACIC AORTA: Normal caliber and configuration. PULMONARY ARTERIES: Normal caliber. HEART: Unremarkable. OSSEOUS STRUCTURES AND CHEST WALL: Intact. LIVER: Normal in size and contour. No focal lesion. GALLBLADDER/BILE DUCTS: No biliary ductal dilatation. PANCREAS: No mass, ductal dilation, or halle-pancreatic fluid. SPLEEN: Normal size. No focal lesion. ADRENALS: Normal; no mass. KIDNEYS AND URETERS: Nonobstructive left nephrolithiasis. URINARY BLADDER: Normal contour. GASTROINTESTINAL TRACT: Stomach is non-dilated. Small bowel has normal course and caliber. No colonic wall thickening or pericolonic inflammatory changes. PERITONEUM: No free fluid LYMPH NODES: No lymphadenopathy. ABDOMINAL AORTA AND OTHER VESSELS: Normal caliber aorta and IVC. REPRODUCTIVE ORGANS: No pathologic process. MUSCULOSKELETAL: No acute or suspicious osseous abnormality. ADDITIONAL FINDINGS: None IMPRESSION: No acute or significant abnormalities in the chest, abdomen, or pelvis, with evaluation limited by la ck of IV contrast.
--- NOTE | 2024-06-10 13:50 | RAD REPORT ---
EXAM: 2 views of the right femur HISTORY: Leg pain COMPARISON: None FINDINGS: There is no evidence of acute fracture or dislocation. No soft tissue swelling is seen. Mod erate right acetabular degenerative changes. 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 IMPRESSION: No right femur fracture.
--- NOTE | 2024-06-10 15:35 | EDPHYS ---
Physician Documentation [facility] Name: Ramesh Mesa Jr Age: 88 yrs Sex: Male : 1935 Arrival Date: 06/10/2024 Time: 11:59 Bed 16 Private MD: ED Physician Nemesio Topete HPI: 06/10 12:46 This 88 yrs old Male presents to ER via EMS with complaints of Fall Injury. che 12:46 Details of fall: The patient fell from an upright position, while standing, while che walking. Onset: The symptoms/episode began/occurred just prior to arrival, this morning. Associated injuries: The patient sustained injury to the head, neck injury, right leg, decreased range of motion, painful injury. Historical: - Allergies: 12:14 No Known Allergies; rs5 - Home Meds: 15:31 hydrochlorothiazide 12.5 mg Oral tablet daily [Active]; amitriptyline 25 mg Oral tablet hb every day at bedtime [Active]; escitalopram oxalate 10 mg Oral tablet daily [Active]; gabapentin 100 mg Oral capsule 2 times per day [Active]; Iron CR Oral daily [Active]; losartan 50 mg Oral tablet daily [Active]; meloxicam 15 mg Oral tablet daily [Active]; memantine 5 mg Oral tablet daily [Active]; multivitamin Oral tablet daily [Active]; propranolol 10 mg Oral tablet 2 times per day [Active]; quetiapine 25 mg Oral tablet every day at bedtime [Active]; Topamax 25 mg Oral tablet 2 times per day [Active]; Zyrtec 10 mg Oral tablet daily [Active]; - PMHx: 12:14 Dementia; depressive disorder; Hypertensive disorder; Migraines; neuropathy; right hand rs5 tremors; - PSHx: 12:14 None; rs5 - Immunization history:: Adult Immunizations up to date. - Infectious Disease History:: Denies. - Social history:: Smoking status: Patient denies any tobacco usage or history of. - Family history:: not pertinent. ROS: 12:46 Constitutional: Negative for fever, chills, and weight loss, Eyes: Negative for injury, che pain, redness, and discharge, ENT: Negative for injury, pain, and discharge, Neck: Negative for injury, pain, and swelling, Respiratory: Negative for shortness of breath, cough, wheezing, and pleuritic chest pain, Abdomen/GI: Negative for abdominal pain, nausea, vomiting, diarrhea, and constipation, Back: Negative for injury and pain, : Negative for injury, bleeding, discharge, and swelling, MS/Extremity: Negative for injury and deformity, Skin: Negative for injury, rash, and discoloration, Psych: Negative for depression, anxiety, suicide ideation, homicidal ideation, and hallucinations, Allergy/Immunology: Negative for hives, rash, and allergies, Endocrine: Negative for neck swelling, polydipsia, polyuria, polyphagia, and marked weight changes, 12:46 Cardiovascular: Positive for palpitations, 12:46 Neuro: Positive for altered mental status, dizziness, weakness, Exam: 12:46 Constitutional: This is a well developed, well nourished patient who is awake, alert, che and in no acute distress. Head/Face: Normocephalic, atraumatic. Eyes: Pupils equal round and reactive to light, extra-ocular motions intact. Lids and lashes normal. Conjunctiva and sclera are non-icteric and not injected. Cornea within normal limits. Periorbital areas with no swelling, redness, or edema. ENT: Nares patent. No nasal discharge, no septal abnormalities noted. Tympanic membranes are normal and external auditory canals are clear. Oropharynx with no redness, swelling, or masses, exudates, or evidence of obstruction, uvula midline. Mucous membranes moist. Neck: Trachea midline, no thyromegaly or masses palpated, and no cervical lymphadenopathy. Supple, full range of motion without nuchal rigidity, or vertebral point tenderness. No Meningismus. Chest/axilla: Normal chest wall appearance and motion. Nontender with no deformity. No lesions are appreciated. Respiratory: Lungs have equal breath sounds bilaterally, clear to auscultation and percussion. No rales, rhonchi or wheezes noted. No increased work of breathing, no retractions or nasal flaring. Abdomen/GI: Soft, non-tender, with normal bowel sounds. No distension or tympany. No guarding or rebound. No evidence of tenderness throughout. Back: No spinal tenderness. No costovertebral tenderness. Full range of motion. Male : Normal genitalia with no discharge or lesions. Skin: Warm, dry with normal turgor. Normal color with no rashes, no lesions, and no evidence of cellulitis. MS/ Extremity: Pulses equal, no cyanosis. Neurovascular intact. Full, normal range of motion. Psych: Awake, alert, with orientation to person, place and time. Behavior, mood, and affect are within normal limits. 12:46 Cardiovascular: Rate: tachycardic, actual rate is 136 bpm, Rhythm: irregularly irregular, Pulses: Pulses are 4+ in bilateral radial, brachial, femoral, popliteal, posterior tibial and and dorsalis pedis arteries.. Heart sounds: normal, Edema: is not appreciated, JVD: is not appreciated, 12:46 ECG was reviewed by the Attending Physician. 12:46 Musculoskeletal/extremity: Extremities: grossly normal except: noted in the right iliac crest and right hip: decreased ROM, pain, 16:15 ECG was reviewed by the Attending Physician. [facility] Vital Signs: 12:11 BP 121 / 97; Pulse 145; Resp 18; Temp 98; Pulse Ox 97% on R/A; rs5 12:57 BP 121 / 88; Pulse 73; Resp 17; Pulse Ox 95% on R/A; rs5 13:09 BP 120 / 71; Pulse 71; Pulse Ox 93% on R/A; tm6 13:58 BP 118 / 69; Pulse 68; Pulse Ox 96% on R/A; tm6 16:29 BP 139 / 95; Pulse 62; Pulse Ox 100% on R/A; Pain 0/10; tm6 18:32 BP 100 / 88; Pulse 79; Pulse Ox 97% on R/A; Pain 0/10; tm6 20:07 BP 112 / 67; Pulse 72; Resp 16; Temp 98; Pulse Ox 99% ; Pain 0/10; bm8 22:30 BP 118 / 65; Pulse 80; Resp 17; Temp 98(O); Pulse Ox 100% on R/A; Pain 0/10; rg5 16:29 Pain Scale: Adult tm6 18:32 Pain Scale: Adult tm6 20:07 Pain Scale: Adult bm8 22:30 Pain Scale: Adult rg5 Gilbert Coma Score: 20:07 Eye Response: spontaneous(4). Motor Response: obeys commands(6). Verbal Response: bm8 oriented(5). Total: 15. MDM: 12:08 Patient medically screened. [facility] 12:55 Differential diagnosis: abrasion, closed head injury, contusion, fracture, multiple che trauma, sprain, strain. Data reviewed: vital signs, nurses notes, EMS record, lab test result(s), EKG, radiologic studies, CT scan, plain films. Consideration of Admission/Observation Escalation of care including admission/observation considered. I considered the following discharge prescriptions or medication management in the emergency department Medications were administered in the Emergency Department. See MAR. Independent interpretation of the following test(s) in the Emergency Department EKG: See my EKG interpretation above. Test considered but Not performed: Ultrasound NO 2 D ECHO. Historians other than the Patient: EMS: EMS WELL INFORMED. Care significantly affected by the following chronic conditions: Diabetes, Hypertension, Obesity, Liver Disease. 06/10 12:10 Order name: Basic Metabolic Panel; Complete Time: : [facility] 06/10 12:10 Order name: CBC with Diff; Complete Time: : [facility] 06/10 12:10 Order name: LFT's; Complete Time: : [facility] 06/10 12:10 Order name: Magnesium; Complete Time: : [facility] 06/10 12:10 Order name: NT PRO-BNP; Complete Time: 15: [facility] 06/10 12:10 Order name: PT-INR; Complete Time: : [facility] 06/10 12:10 Order name: Troponin HS; Complete Time: : [facility] 06/10 12:10 Order name: Lipase; Complete Time: : [facility] 06/10 12:10 Order name: TSH; Complete Time: 15: [facility] 06/10 12:10 Order name: XRAY Chest (1 view); Complete Time: 15: [facility] 06/10 12:10 Order name: Pelvis XRAY; Complete Time: 15: [facility] 06/10 12:10 Order name: Hip Right 2 View XRAY; Complete Time: 15: [facility] 06/10 12:10 Order name: Femur Right XRAY; Complete Time: 15: [facility] 06/10 12:16 Order name: Head C Spine Mpr Wo Con; Complete Time: 15: [facility] 06/10 12:16 Order name: Chest Abd Pelvis Wo Con; Complete Time: 15: [facility] 06/10 12:10 Order name: EKG; Complete Time: 12:11 [facility] 06/10 15:25 Order name: EKG; Complete Time: 15: [facility] 06/10 12:10 Order name: Cardiac monitoring; Complete Time: 12:51 che 06/10 12:10 Order name: EKG - Nurse/Tech; Complete Time: 12:51 che 06/10 12:10 Order name: IV Saline Lock; Complete Time: 12:51 che 06/10 12:10 Order name: Labs collected and sent; Complete Time: 12:51 che 06/10 12:10 Order name: O2 Per Protocol; Complete Time: 12:51 che 06/10 12:10 Order name: O2 Sat Monitoring; Complete Time: 12:51 che 06/10 15:25 Order name: EKG - Nurse/Tech; Complete Time: 16:30 che EC:46 Rate is 136 beats/min. Rhythm is irregularly irregular. QRS [place] is Normal. [place] interval che is normal. QRS interval is normal. QT interval is normal. No Q waves. Clinical impression: Atrial Fibrillation. Interpreted by me. Reviewed by me. 16:15 Rate is 64 beats/min. Rhythm is regular. QRS [place] is Normal. [place] interval is prolonged che at 226 msec. QRS interval is normal. QT interval is normal. No Q waves. T waves are Normal. No ST changes noted. Clinical impression: NSR w/ Non-specific ST/T Changes, 1st degree heart block, and No evidence of ischemia. Interpreted by me. Reviewed by me. Administered Medications: 12:12 Drug: NS 0.9% IV 500 ml IV at bolus once Route: IV; Rate: bolus; Site: right rs5 antecubital; 18:34 Follow up: Response: No adverse reaction; IV Status: Completed infusion; IV Intake: tm6 500ml 12:12 Drug: Magnesium Sulfate IVPB 1 grams IVPB once over 1 hrs Route: IVPB; Infused Over: 1 rs5 hrs; Site: right antecubital; 18:33 Follow up: Response: No adverse reaction; IV Status: Completed infusion; IV Intake: tm6 100ml 12:12 Drug: Metoprolol IVP 5 mg IVP once; Hold for SBP <100 or HR <60. Route: IVP; Site: rs5 right antecubital; 18:33 Follow up: Response: No adverse reaction tm6 Disposition Summary: 06/10/24 15:35 Hospitalization Ordered Notes: Hospitalization Status: Observation che Provider: Daquan Snowden che Condition: Stable che Problem: new che Symptoms: have improved che Bed/Room Type: Standard che Location: Telemetry/MedSurg (observation)(06/11/24 07:03) live Room Assignment: 204(06/11/24 07:03) live Diagnosis - Weakness che - Paroxysmal atrial fibrillation - NEW ONSET che - Fall on same level, unspecified che - Contusion of right hip che Forms: - Medication Reconciliation Form che - SBAR form che - Leadership Thank You Letter che Signatures: Dispatcher [employer] EDMS Nemesio Topete MD MD cha Garcia, Cindy, RN RN Rebecca Keller RN RN Bernard Mcclure RN RN ja1 Sunil Dobson RN RN rs5 Eula Perez RN tm6 Corrections: (The following items were deleted from the chart) 12:11 12:11 BASIC METABOLIC PANEL+C.LAB.BRZ ordered. EDMS EDMS 12:11 12:11 CBC+H.LAB.BRZ ordered. EDMS EDMS 12:11 12:11 HEPATIC FUNCTION+C.LAB.BRZ ordered. EDMS EDMS 12:11 12:11 MAGNESIUM+C.LAB.BRZ ordered. EDMS EDMS 12:11 12:11 PROBNP+C.LAB.BRZ ordered. EDMS EDMS 12:11 12:11 PROTIME (+INR)+COAG.LAB.BRZ ordered. EDMS EDMS 12:11 12:11 Troponin High Sensitivity+C.LAB.BRZ ordered. EDMS EDMS 12:11 12:11 LIPASE+C.LAB.BRZ ordered. EDMS EDMS 12:11 12:11 THYROID STIMULAT HORMONE+C.LAB.BRZ ordered. EDMS EDMS 12:16 12:11 Head C Spine Cap Wo Con+CT.RAD.BRZ ordered. EDMS EDMS 15:28 15:28 EC Echo Doppler W/Color Flow+ECHO.RAD.BRZ ordered. EDMS EDMS 20:59 15:35 Telemetry/MedSurg (observation) che 20:59 15:35 che 06/11 07:03 13 20:59 [facility] ER HOLD [facility] 06/11 07:03 06/10 20:59 ERHOLD- [facility]
--- NOTE | 2024-06-10 15:35 | ER ---
Nurse's Notes [facility] Name: Ramesh Mesa Jr Age: 88 yrs Sex: Male : 1935 Arrival Date: 06/10/2024 Time: 11:59 Bed 16 Private MD: Diagnosis: Weakness;Paroxysmal atrial fibrillation-NEW ONSET;Fall on same level, unspecified;Contusion of right hip Presentation: 06/10 12:11 Chief complaint: EMS states: Family toned out EMS for a fall in bathtub, pt complained rs5 of pain to right hip and neck. Pt noted to be in afib with RVR when hooked up to monitor, denies SOB or chest pain. Coronavirus screen: At this time, the client does not indicate any symptoms associated with coronavirus-19. Ebola Screen: No symptoms or risks identified at this time. Initial Sepsis Screen: Does the patient meet any 2 criteria? HR > 90 bpm. Yes Does the patient have a suspected source of infection? No. Patient's initial sepsis screen is negative. Risk Assessment: Do you want to hurt yourself or someone else? Patient reports no desire to harm self or others. Onset of symptoms was June 10, 2024. Care prior to arrival: IV initiated. in the right hand. 12:11 Method Of Arrival: EMS: [facility] rs5 12:11 Acuity: EDIN 2 rs5 Historical: - Allergies: 12:14 No Known Allergies; rs5 - Home Meds: 15:31 hydrochlorothiazide 12.5 mg Oral tablet daily [Active]; amitriptyline 25 mg Oral tablet hb every day at bedtime [Active]; escitalopram oxalate 10 mg Oral tablet daily [Active]; gabapentin 100 mg Oral capsule 2 times per day [Active]; Iron CR Oral daily [Active]; losartan 50 mg Oral tablet daily [Active]; meloxicam 15 mg Oral tablet daily [Active]; memantine 5 mg Oral tablet daily [Active]; multivitamin Oral tablet daily [Active]; propranolol 10 mg Oral tablet 2 times per day [Active]; quetiapine 25 mg Oral tablet every day at bedtime [Active]; Topamax 25 mg Oral tablet 2 times per day [Active]; Zyrtec 10 mg Oral tablet daily [Active]; - PMHx: 12:14 Dementia; depressive disorder; Hypertensive disorder; Migraines; neuropathy; right hand rs5 tremors; - PSHx: 12:14 None; rs5 - Immunization history:: Adult Immunizations up to date. - Infectious Disease History:: Denies. - Social history:: Smoking status: Patient denies any tobacco usage or history of. - Family history:: not pertinent. Screenin:10 [facility] ED Fall Risk Assessment (Adult) History of falling in the last 3 months, rs5 including since admission Yes- single mechanical fall (1 pt) Confusion or Disorientation Yes (5 pts) Intoxicated or Sedated No (0 pts) Impaired Gait Yes (1 pt) Mobility Assist Device Used Yes (1 pt) Altered Elimination No (0 pt) Score/Fall Risk Level 3 or more points = High Risk Maintained a safe environment, Provided non-skid footwear, Hourly rounding (assess needs \T\ fall precautionary measures) done, Used ambulatory aids as needed (educated on \T\ assisted with). 12:10 Abuse screen: Denies threats or abuse. Nutritional screening: No deficits noted. rs5 Tuberculosis screening: No symptoms or risk factors identified. Assessment: 12:10 General: Appears in no apparent distress. comfortable, Behavior is calm, cooperative. rs5 Pain: Complains of pain in right hip Unable to use pain scale. Does not appear to understand pain scale. Neuro: Level of Consciousness is awake, Oriented to person. Cardiovascular: Patient's skin is warm and dry. Respiratory: Airway is patent Respiratory effort is even, unlabored, Respiratory pattern is regular, symmetrical. GI: Abdomen is round non-distended, Abd is soft and non tender X 4 quads. : No signs and/or symptoms were reported regarding the genitourinary system. EENT: No signs and/or symptoms were reported regarding the EENT system. Derm: Skin is intact, Skin is pink, warm \T\ dry. Musculoskeletal: Range of motion: intact in all extremities. 13:59 Reassessment: Patient and/or family updated on plan of care and expected duration. Pain tm6 level reassessed. Patient is alert, oriented x 3, equal unlabored respirations, skin warm/dry/pink. 15:20 Reassessment: No changes from previously documented assessment. rs5 16:35 Reassessment: No changes from previously documented assessment. rs5 17:27 Reassessment: Patient and/or family updated on plan of care and expected duration. Pain rs5 level reassessed. Patient is alert, oriented x 3, equal unlabored respirations, skin warm/dry/pink. 18:33 Reassessment: Patient and/or family updated on plan of care and expected duration. Pain tm6 level reassessed. Patient is alert, oriented x 3, equal unlabored respirations, skin warm/dry/pink. 20:07 Reassessment: Patient appears in no apparent distress at this time. Patient and/or bm8 family updated on plan of care and expected duration. Pain level reassessed. Patient is alert, oriented x 3, equal unlabored respirations, skin warm/dry/pink. General: Appears in no apparent distress. comfortable, Behavior is calm, cooperative, appropriate for age. Pain: Denies pain. Neuro: No deficits noted. Level of Consciousness is awake, alert, obeys commands, Oriented to person, time, situation. Cardiovascular: Denies chest pain, Capillary refill < 3 seconds Patient's skin is warm and dry. Rhythm is atrial fibrillation. Respiratory: Airway is patent Respiratory effort is even, unlabored, Respiratory pattern is regular, symmetrical. GI: No signs and/or symptoms were reported involving the gastrointestinal system. : No signs and/or symptoms were reported regarding the genitourinary system. EENT: No signs and/or symptoms were reported regarding the EENT system. Derm: No signs and/or symptoms reported regarding the dermatologic system. Musculoskeletal: No signs and/or symptoms reported regarding the musculoskeletal system. Vital Signs: 12:11 BP 121 / 97; Pulse 145; Resp 18; Temp 98; Pulse Ox 97% on R/A; rs5 12:57 BP 121 / 88; Pulse 73; Resp 17; Pulse Ox 95% on R/A; rs5 13:09 BP 120 / 71; Pulse 71; Pulse Ox 93% on R/A; tm6 13:58 BP 118 / 69; Pulse 68; Pulse Ox 96% on R/A; tm6 16:29 BP 139 / 95; Pulse 62; Pulse Ox 100% on R/A; Pain 0/10; tm6 18:32 BP 100 / 88; Pulse 79; Pulse Ox 97% on R/A; Pain 0/10; tm6 20:07 BP 112 / 67; Pulse 72; Resp 16; Temp 98; Pulse Ox 99% ; Pain 0/10; bm8 22:30 BP 118 / 65; Pulse 80; Resp 17; Temp 98(O); Pulse Ox 100% on R/A; Pain 0/10; rg5 16:29 Pain Scale: Adult tm6 18:32 Pain Scale: Adult tm6 20:07 Pain Scale: Adult bm8 22:30 Pain Scale: Adult rg5 [place] Coma Score: 20:07 Eye Response: spontaneous(4). Motor Response: obeys commands(6). Verbal Response: bm8 oriented(5). Total: 15. ED Course: 12:08 Patient arrived in ED. che 12:08 Nemesio Topete MD is Attending Physician. che 12:10 Patient has correct armband on for positive identification. Placed in gown. Bed in low rs5 position. Call light in reach. Side rails up X2. Adult w/ patient. 12:10 Provided Education on: plan of care. Client placed on continuous cardiac and pulse tm6 oximetry monitoring. NIBP monitoring applied. property assessment monitor on. Pulse ox on. NIBP on. Door closed. Noise minimized. Warm blanket given. Pillow given. 12:10 No provider procedures requiring assistance completed. rs5 12:13 Triage completed. rs5 12:47 XRAY Chest (1 view) In Process Unspecified. EDMS 12:47 Pelvis XRAY In Process Unspecified. EDMS 12:47 Hip Right 2 View XRAY In Process Unspecified. EDMS 12:47 Femur Right XRAY In Process Unspecified. EDMS 12:48 Head C Spine Mpr Wo Con In Process Unspecified. EDMS 12:49 Chest Abd Pelvis Wo Con In Process Unspecified. EDMS 12:50 Sunil Dobson, RN is Primary Nurse. rs5 15:31 Daquan Snowden MD is Hospitalizing Provider. che 16:29 Repositioned patient. Cleaned of incontinence. Linen changed. tm6 16:29 EKG done, by ED staff, reviewed by Nemesio Topete MD. tm6 20:07 IV discontinued, intact, bleeding controlled, No redness/swelling at site. Pressure bm8 dressing applied. Patient maintains SpO2 saturation greater than 95% on room air. 20:36 Arm band placed on right wrist. bm8 Administered Medications: 12:12 Drug: NS 0.9% IV 500 ml IV at bolus once Route: IV; Rate: bolus; Site: right rs5 antecubital; 18:34 Follow up: Response: No adverse reaction; IV Status: Completed infusion; IV Intake: tm6 500ml 12:12 Drug: Magnesium Sulfate IVPB 1 grams IVPB once over 1 hrs Route: IVPB; Infused Over: 1 rs5 hrs; Site: right antecubital; 18:33 Follow up: Response: No adverse reaction; IV Status: Completed infusion; IV Intake: tm6 100ml 12:12 Drug: Metoprolol IVP 5 mg IVP once; Hold for SBP <100 or HR <60. Route: IVP; Site: rs5 right antecubital; 18:33 Follow up: Response: No adverse reaction tm6 Medication: 13:12 VIS not applicable for this client. rs5 Intake: 18:33 IV: 100ml; Total: 100ml. tm6 18:34 IV: 500ml; Total: 600ml. tm6 Outcome: 15:35 Decision to Hospitalize by Provider. che 20:36 Admitted to ER Hold. Please see [facility] for further documentation. bm8 20:36 Condition: stable 20:36 Instructed on the need for admit, Demonstrated understanding of instructions, follow-up care, 06/11 09:01 Patient left the ED. mb9 Signatures: Dispatcher [employer] EDNemesio Fountain MD MD cha Baxter, Heather, RN Sol Cavazos RN RN mb9 Sunil Dobson RN RN rs5 Eula Perez RN RN tm6 Jf Ugarte RN RN bm8 Alex Luna RN RN rg5
--- NOTE | 2024-06-10 16:43 | P.HP ---
Certification for Inpatient Patient admitted to: Observation With expected LOS: <2 Midnights Patient will require the following post-hospital care: None Practitioner: I am a practitioner with admitting privileges, knowledge of patient current condition, hospital course, and medical plan of care. Services: Services provided to patient in accordance with Admission requirements found in Title 42 Section 412.3 of the Code of Federal Regulations Patient History Date of Service: 06/10/24 Primary Care Provider: Dr. Armando Reason for admission: Fall, new onset A-fib History of Present Illness: 88-year-old male with history of dementia, hypertension, migraines, neuropathy, tremors presents emergency department after an unwitnessed fall. He lives with his adult children, son-in-law reports that he went to the bathroom around 10 AM and around 1045 they went to check on him and found him lying on the floor. Patient cannot recall the events leading up to him ending up on the floor but he was awake and conscious when they found him. EMS was called upon arrival patient was noted to be in A-fib RVR with a rate of 145. He was given a dose of IV metoprolol and converted back to sinus rhythm. From a trauma standpoint he had imaging of his head/C-spine/chest abdomen pelvis with CT as well as hip right and pelvis x-rays which were all negative for acute findings. His labs were significant for potassium of 3.3. ED provider wishes to admit patient under observation for fall, new onset atrial fibrillation - Past Medical/Surgical History -: Dementia -: Depression -: Hypertension -: Right hand tremor -: None Psychosocial/ Personal History: Lives at home with his adult children - Family History Family History: Reviewed- Non-Contributory - Social History Place of Residence: Home Review of Systems 10-point ROS is otherwise unremarkable Musculoskeletal: Other (Right hip pain) Physical Examination - Physical Exam General: Alert, In no apparent distress, Oriented x2 HEENT: Atraumatic, PERRLA Neck: Supple, 2+ carotid pulse no bruit Respiratory: Clear to auscultation bilaterally, Normal air movement Cardiovascular: Regular rate/rhythm, Normal S1 S2 Gastrointestinal: Normal bowel sounds, No tenderness Musculoskeletal: No tenderness Integumentary: No rashes Neurological: Normal speech, Normal strength at 5/5 x4 extr, Normal tone - Studies Laboratory Data (last 24 hrs) 06/10/24 06/10/2424 12:30 12:30 12:30 WBC 10.90 Hgb 12.3 L Hct 37.9 L Plt Count 197 PT 11.9 INR 1.06 Sodium 142 Potassium 3.3 L BUN 24 H Creatinine 0.74 Glucose 93 Magnesium 2.0 Total Bilirubin 1.0 AST 19 ALT 24 Alkaline Phosphatase 101 Lipase 18 Assessment and Plan - Plan Assessment: Unwitnessed fall versus syncope New onset atrial fibrillation with RVR-converted to NSR Right hip pain Hypertension Dementia Right hand tremor Depression Plan: Unwitnessed fall versus syncope Unwitnessed fall, patient was alert when family found him Unclear how long he was on the ground, possibly as long as 45 minutes Will monitor CPK level continue gentle IV fluids overnight PT evaluation Trend troponins and monitor on [place] treating New onset atrial fibrillation with RVR-converted to NSR Arrived in A-fib RVR with rate of 145 Converted after 5 mg of IV Lopressor Started on 25 mg of p.o. Lopressor twice daily Monitor telemetry, cardiology consultation placed Right hip pain Imaging negative for fractures, PT consulted Hypertension Dementia Right hand tremor Depression Continue home medications when verified DVT PPX: Full Code status: Lovenox Discharge Plan: Home Plan to discharge in: 24 Hours - Advance Directives Does patient have a Living Will: Yes Does patient have a Durable POA for Healthcare: Yes - Code Status/Comfort Care Code Status Assessed: Yes (Full code) Critical Care: No Time Spent Managing Pts Care (In Minutes): 62
[2024-06-10 22:25] VITALS: BMI 30.7
[2024-06-11] MEDS: AMITRIPTYLINE 25 MG TAB PO SCH (02:23)
[2024-06-11] MEDS: QUETIAPINE 25 MG TAB PO SCH ×2 (03:00→08:53)
[2024-06-11] MEDS: TOPIRAMATE 25 MG TAB PO SCH (08:53)
[2024-06-11] MEDS: MEMANTINE HCL 10 MG TABLET PO SCH (08:53)
[2024-06-11] MEDS ORDERED: MEMANTINE HCL 10 MG TABLET PO SCH (09:00)
[2024-06-11] MEDS ORDERED: TOPIRAMATE 25 MG TAB PO SCH (09:00)
[2024-06-11 09:17] VITALS: O2SAT 100
[2024-06-11] MEDS: ESCITALOPRAM 20 MG TAB PO SCH (09:33)
[2024-06-11] MEDS: FERROUS SULFATE 325 MG TAB PO SCH (09:33)
[2024-06-11] MEDS: ENOXAPARIN 40 MG/0.4 ML SQ SCH (09:33)
[2024-06-11] MEDS: NA CHLORIDE 0.9% 1,000 ML IV SCH (09:33)
[2024-06-11] MEDS: METOPROLOL TAR 25 MG TAB PO SCH (09:33)
[2024-06-11] MEDS: CETIRIZINE HCL 5 MG TABLET PO SCH (09:34)
[2024-06-11] MEDS: MELOXICAM 7.5 MG TAB PO SCH (09:34)
[2024-06-11] MEDS: GABAPENTIN 100 MG CAP PO SCH (09:34)
[2024-06-11 09:38] LABS: Absolute Basophils 0.1 K/uL (0-0.5); Absolute Eosinophils 0.2 K/uL (0-0.5); Absolute Lymphocytes (CBC) 0.8 K/uL (0.7-4.9); Absolute Monocytes 0.6 K/uL (0.1-1.3); Absolute Neutrophil 4.6 K/uL (1.8-8.0); Basophils % 1.3 % (0-1.3); Eosinophils % 3.9 % (0-4.4); Hematocrit 37.9 % (39.6-49.0); Hemoglobin 12.2 g/dL (13.6-17.9); Lymphocytes % 13.1 % (15.3-44.8); MCH 32.7 pg (27.0-35.0); MCHC 32.3 g/dL (32.0-36.0); MCV 101.2 fL (80-100); MPV 8.1 fL (7.6-11.3); Monocytes % 9.7 % (3.3-12.3); Nucleated Red Blood Cells % 0.1 % (0-0); Platelets 178 thou/uL (152-406); RBC Red Blood Cell Count 3.74 M/uL (4.33-5.43); Red Cell Distribution Width 18.5 % (12.1-15.2)
[2024-06-11 09:57] LABS: Anion Gap 7.5 mEq/L (5.0-15.0); Magnesium 2.1 mg/dL (1.6-2.4); Potassium 3.5 mEq/L (3.5-5.1); Thyroid Stimulating Hormone 2.66 uIU/mL (0.358-3.740); Troponin High Sensitivity 15.1 pg/mL (<58.9)
[2024-06-11] MEDS: POTASSIUM 25 MEQ EFFERV TAB PO ONE (10:26)
[2024-06-11 13:40] VITALS: BP 119/54; TEMP 98.2
--- NOTE | 2024-06-11 15:18 | P.DS ---
Admission Date: 06/10/24 Discharge Date: 06/11/24 Primary Care Provider: Dr. Armando Disposition: ROUTINE DISCHARGE Discharge Condition: GOOD Reason for Admission: Fall, new onset A-fib Brief History of Present Illness: 88-year-old male with history of dementia, hypertension, migraines, neuropathy, tremors presents emergency department after an unwitnessed fall. He lives with his adult children, son-in-law reports that he went to the bathroom around 10 AM and around 1045 they went to check on him and found him lying on the floor. Patient cannot recall the events leading up to him ending up on the floor but he was awake and conscious when they found him. EMS was called upon arrival patient was noted to be in A-fib RVR with a rate of 145. He was given a dose of IV metoprolol and converted back to sinus rhythm. From a trauma standpoint he had imaging of his head/C-spine/chest abdomen pelvis with CT as well as hip right and pelvis x-rays which were all negative for acute findings. His labs were significant for potassium of 3.3. ED provider wishes to admit patient under observation for fall, new onset atrial fibrillation Hospital Course: Patient was admitted to the hospital for an unwitnessed fall, new onset atrial fibrillation. When he arrived to the emergency department he was noted to be in atrial fibrillation with a rate around 145, he was given IV metoprolol and he converted to sinus rhythm. He was started on oral metoprolol 25 mg by mouth twice daily and has maintained being in sinus rhythm since then. EKG did not show prolonged QTc. He was also evaluated by physical therapy and able to ambulate 250 feet with a walker. Case was discussed with cardiology who recommends continuing the metoprolol 25 mg about twice daily as well as a daily baby aspirin and following up closely in clinic. Given that we will be initiating the metoprolol, we will be discontinuing the propranolol for the time being. Please discontinue propranolol for now Prescription for metoprolol 25 mg mouth twice daily sent to pharmacy Please start taking 81 mg baby aspirin [id number] please follow-up with Dr. Armando in 1 week Please also follow-up with cardiologyDr. Garcia within 1 week Continue other home medications as previously prescribed aside from the propranolol. Assessment: Unwitnessed fall versus syncope New onset atrial fibrillation with RVR-converted to NSR Right hip pain Hypertension Dementia Right hand tremor Depression Vital Signs/Physical Exam: Temp Pulse Resp BP Pulse Ox 98.2 F 73 16 119/54 L 98 06/11/24 12:00 06/11/24 12:00 06/11/24 12:00 06/11/24 12:00 06/11/24 12:00 General: Alert, In no apparent distress, Oriented x2 HEENT: Atraumatic, PERRLA Neck: Supple, JVD not distended Respiratory: Clear to auscultation bilaterally, Normal air movement Cardiovascular: Regular rate/rhythm, Normal S1 S2 Gastrointestinal: Normal bowel sounds, No tenderness Musculoskeletal: No tenderness Integumentary: No rashes Neurological: Normal speech, Normal tone, Normal affect Laboratory Data at Discharge: WBC 6.40 thou/uL (4.3-10.9) 06/11/24 09:17 Hgb 12.2 g/dL (13.6-17.9) L 06/11/24 09:17 Hct 37.9 % (39.6-49.0) L 06/11/24 09:17 Plt Count 178 thou/uL (152-406) 06/11/24 09:17 PT 11.9 SECONDS (9.4-12.5) 06/10/24 12:30 INR 1.06 06/10/24 12:30 Sodium 143 mEq/L (136-145) 06/11/24 09:17 Potassium 3.5 mEq/L (3.5-5.1) 06/11/24 09:17 BUN 16 mg/dL (7-18) 06/11/24 09:17 Creatinine 0.77 mg/dL (0.70-1.30) 06/11/24 09:17 Glucose 99 mg/dL (74-106) 06/11/24 09:17 Magnesium 2.1 mg/dL (1.6-2.4) 06/11/24 09:17 Total Bilirubin 1.0 mg/dL (0.2-1.0) 06/10/24 12:30 AST 19 U/L (15-37) 06/10/24 12:30 ALT 24 U/L (16-61) 06/10/24 12:30 Alkaline Phosphatase 101 U/L (45-117) 06/10/24 12:30 Lipase 18 U/L (13-75) 06/10/24 12:30 Home Medications: Amitriptyline [Elavil*] 1 tab PO BEDTIME 06/10/24 Cetirizine HCl [Zyrtec*] 1 tab PO DAILY 06/10/24 Escitalopram Oxalate 10 mg PO DAILY 06/10/24 Ferrous Sulfate [Iron] 325 mg PO DAILY 06/10/24 Gabapentin [Neurontin*] 100 mg PO BID 06/10/24 Losartan Potassium [Cozaar*] 50 mg PO DAILY 06/10/24 Meloxicam [Mobic] 15 mg PO DAILY 06/10/24 Memantine HCl [Namenda*] 10 mg PO BID 06/10/24 Quetiapine Fumarate [Seroquel] 25 mg PO BEDTIME 06/10/24 Topiramate [Topamax*] 25 mg PO BID 06/10/24 hydroCHLOROthiazide [Hydrochlorothiazide] 1 tab PO DAILY 06/10/24 Metoprolol Tartrate [Lopressor*] 25 mg PO BID 6AM 6PM #60 tab 06/11/24 New Medications: Metoprolol Tartrate [Lopressor*] 25 mg PO BID 6AM 6PM #60 tab Physician Discharge Instructions: Patient was admitted to the hospital for an unwitnessed fall, new onset atrial fibrillation. When he arrived to the emergency department he was noted to be in atrial fibrillation with a rate around 145, he was given IV metoprolol and he converted to sinus rhythm. He was started on oral metoprolol 25 mg by mouth twice daily and has maintained being in sinus rhythm since then. EKG did not show prolonged QTc. He was also evaluated by physical therapy and able to ambulate 250 feet with a walker. Case was discussed with cardiology who recommends continuing the metoprolol 25 mg about twice daily as well as a daily baby aspirin and following up closely in clinic. Given that we will be initiat ing the metoprolol, we will be discontinuing the propranolol for the time being. Please discontinue propranolol for now Prescription for metoprolol 25 mg mouth twice daily sent to pharmacy Please start taking 81 mg baby aspirin [id number] please follow-up with Dr. Armando in 1 week Please also follow-up with cardiologyDr. Garcia within 1 week Continue other home medications as previously prescribed aside from the propranolol. Diet: Regular Activity: Use walker at all times Followup: Elliott Armando MD [Primary Care Provider] - 1 Week Jose Garcia MD [ACTIVE - CAN ADMIT] - 1 Week Time spent managing pt's care (in minutes): 36
[2024-06-11] MEDS ORDERED: QUETIAPINE 25 MG TAB PO SCH (21:00)
[2024-06-11] MEDS ORDERED: AMITRIPTYLINE 25 MG TAB PO SCH (21:00)
--- NOTE | 2024-06-13 12:53 | EKG ---
Test Date: 2024-06-11 Test Time: 12:36:28 Air Export Operations Agent: ROSA ISELA MEASUREMENT RESULTS: Intervals: Rate: 70 CO: 218 QRSD: 90 QT: 420 QTc: 453 [place]: P: 61 CO: 218 QRS: -12 T: 51 INTERPRETIVE STATEMENTS: Sinus rhythm with 1st degree AV block Otherwise normal ECG Compared to ECG 06/10/2024 15:57:47 No significant changes Electronically Signed On 06-13-24 12:48:36 CDT by Champ Turner
--- NOTE | 2024-06-13 12:57 | EKG ---
Test Date: 2024-06-10 Test Time: 15:57:47 Electric Switch Repairer: ANGEL MEASUREMENT RESULTS: Intervals: Rate: 64 DE: 226 QRSD: 90 QT: 442 QTc: 455 [place]: P: 49 DE: 226 QRS: -12 T: 16 INTERPRETIVE STATEMENTS: Sinus rhythm with 1st degree AV block Otherwise normal ECG Compared to ECG 06/10/2024 12:26:45 First degree AV block now present Atrial fibrillation no longer present ST (T wave) deviation no longer present Electronically Signed On 06-13-24 12:49:17 CDT by Champ Turner
--- NOTE | 2024-06-13 12:58 | EKG ---
Test Date: 2024-06-10 Test Time: 12:26:45 Circus Artist: RYAN MEASUREMENT RESULTS: Intervals: Rate: 136 [place]: QRSD: 84 QT: 324 QTc: 487 [place]: P: NV: QRS: 25 T: -83 INTERPRETIVE STATEMENTS: Atrial fibrillation Marked ST abnormality, possible inferior subendocardial injury Abnormal ECG Compared to ECG 05/29/2023 17:27:44 ST (T wave) deviation now present Sinus rhythm no longer present First degree AV block no longer present Electronically Signed On 06-13-24 12:50:05 CDT by Champ Turner
== END 2024-06-11 13:52 | disposition home or self-care (01) ==
LOC: ER 11:59 → ERHOLD 16:31 → 2ND 06-11 07:41
PROVIDERS: ADMIT Hospitalist; ATTEND Hospitalist
DX: I48.0 Paroxysmal atrial fibrillation (principal); R53.1 Weakness; S70.01XA Contusion of right hip, initial encounter; W18.30XA Fall on same level, unspecified, initial encounter; Y93.89 Activity, other specified; Y92.091 Bathroom in other non-institutional residence as the place of occurrence of the external cause; F03.90 Unspecified dementia, unspecified severity, without behavioral disturbance, psychotic disturbance, mood disturbance, and anxiety; I10 Essential (primary) hypertension; F32.A Depression, unspecified; G43.909 Migraine, unspecified, not intractable, without status migrainosus; G25.2 Other specified forms of tremor
CPT/HCPCS: 96365; 85025 ×2; 80048 ×2; 36415; 83735 ×2; 82550; 85610; 80076; 84443 ×2; 84484 ×2; 84439; 83690; 83880; 70450; 71250; 72125; 74176; 71045; 72170; 73502; 73552; 97116; 97162; 97530; 96375; 99285; 96366; J3475; J1650; J7040; J7030; G0378 ×4; 93005

== ENCOUNTER 2024-08-23 09:35 | Observation (INO) | payer OTHER ==
--- NOTE | 2024-08-23 10:22 | RAD REPORT ---
EXAM: CT brain without contrast HISTORY: MENTAL STATUS CHANGE COMPARISON: None TECHNIQUE: Multiple contiguous axial images were obtained and a CT of the brain without contrast. Sag ittal and coronal reformats were performed. One or more of the following dose reduction techniques were used: Automated exposure control, adjust ment of the mA and/or kV according to patient size, and/or iterative reconstruction. FINDINGS: No evidence of hydrocephalus, intracranial hemorrhage, or extra-axial fluid collection. Mild brain atrophy with mild periventricular and deep white matter chronic microvascular ischemic ch anges present. No evidence of midline shift or areas of brain edema. The calvarium is intact. The visualized paranasal sinuses and mastoid air cells are essentially clear . IMPRESSION: No evidence of acute intracranial abnormality.
--- NOTE | 2024-08-23 10:29 | RAD REPORT ---
EXAMINATION: CT ABDOMEN AND PELVIS WITHOUT CONTRAST CLINICAL INDICATION: HEMATURIA TECHNIQUE: CT abdomen and pelvis was performed, without IV contrast, as per department protocol. Axia l, sagittal and coronal reconstructions were obtained. One or more of the following dose reduction techniques were used: Automated exposure control, adjustment of the mA and kV according to the patien t size, and iterative reconstruction. Unless otherwise specified, incidental findings do not require dedicated imaging follow-up. COMPARISON: 06/25/2024 FINDINGS: The lack of intravenous contrast limits the sensitivity of this exam for evaluation of solid visceral organs, vascular structures, and retroperitoneum. LOWER CHEST: Trace bilateral pleural effusion. LIVER:Normal in size and contour. No focal lesion. Grossly unremarkable gallbladder. SPLEEN: Normal size. No focal lesion. PANCREAS: No mass, ductal dilation, or halle-pancreatic fluid. ADRENALS: Normal; no mass. KIDNEYS AND URETERS: Normal size and contour. No hydronephrosis. Tiny calculus possible calyx left ki dney. 4 mm calculus suspected distal left ureter. URINARY BLADDER: Normal contour. GASTROINTESTINAL TRACT: No evidence of bowel obstruction, significant free fluid, free air or abscess . Moderate stool is present retained throughout the colon. Mild sigmoid diverticulosis without diverticulitis. APPENDIX: Normal appendix. LYMPH NODES: No lymphadenopathy. MUSCULOSKELETAL: Mild multilevel spinal degenerative changes. ADDITIONAL FINDINGS: None. IMPRESSION: 4 mm stone suspected distal left ureter. No significant hydronephrosis. Moderate stool retention throughout the colon. Sigmoid diverticulosis coli without diverticulitis.
--- NOTE | 2024-08-23 11:12 | RAD REPORT ---
EXAMINATION: ONE VIEW CHEST XR CLINICAL INDICATION: COUGH TECHNIQUE: Frontal chest projection is submitted. Examination is limited by patient positioning and t echnique. COMPARISON: 06/26/2024 FINDINGS: The lungs are well inflated and clear. The heart is upper limit of normal in size. No displaced fract ures identified. IMPRESSION: No acute intrathoracic abnormalities.
[2024-08-23] MEDS ORDERED: NA CHLORIDE 0.9% 500 ML ONE (11:43)
[2024-08-23] MEDS ORDERED: NA CHLORIDE 0.9% 1,000 ML ONE (11:43)
[2024-08-23 11:59] LABS: Absolute Basophils 0.1 K/uL (0-0.5); Absolute Eosinophils 0.2 K/uL (0-0.5); Absolute Lymphocytes (CBC) 0.8 K/uL (0.7-4.9); Absolute Monocytes 0.6 K/uL (0.1-1.3); Absolute Neutrophil 5.9 K/uL (1.8-8.0); Basophils % 1.3 % (0-1.3); Eosinophils % 2.5 % (0-4.4); Hematocrit 37.9 % (39.6-49.0); Hemoglobin 11.8 g/dL (13.6-17.9); Lymphocytes % 10.2 % (15.3-44.8); MCH 30.3 pg (27.0-35.0); MCHC 31.2 g/dL (32.0-36.0); MCV 97.1 fL (80-100); MPV 8.4 fL (7.6-11.3); Monocytes % 7.4 % (3.3-12.3); Neutrophils % 78.6 % (41.7-73.7); Platelets 179 thou/uL (152-406); RBC Red Blood Cell Count 3.91 M/uL (4.33-5.43)
[2024-08-23 12:03] LABS: PT Prothrombin Time 14.9 SECONDS (9.4-12.5); Protime INR 1.34
[2024-08-23 12:20] LABS: ALT/SGPT 17 U/L (16-61); AST/SGOT 13 U/L (15-37); Albumin 3.2 g/dL (3.4-5.0); Albumin/Globulin Ratio 1.1 (1.1-1.8); Alkaline Phosphatase 93 U/L (45-117); Anion Gap 8.1 mEq/L (5.0-15.0); BUN Blood Urea Nitrogen 14 mg/dL (7-18); Bicarbonate 25 mEq/L (21-32); Bilirubin Total 0.5 mg/dL (0.2-1.0); Glomerular Filtration Rate 84 ml/min (=/>90); Glucose Level 101 mg/dL (74-106); Lipase 20 U/L (13-75); Magnesium 1.9 mg/dL (1.6-2.4); NT PRO-BNP 594 pg/mL (<450); Potassium 4.1 mEq/L (3.5-5.1); Protein, Total 6.2 g/dL (6.4-8.2); Sodium Level 143 mEq/L (136-145); Troponin High Sensitivity 12.5 pg/mL (<58.9)
[2024-08-23 12:23] LABS: Bilirubin Direct < 0.2 mg/dL (0-0.2); Bilirubin Indirect, Calculated 0.3 mg/dL (0.2-0.8)
[2024-08-23] MEDS ORDERED: CEFTRIAXONE 1000 MG/VIAL ONE (12:42)
[2024-08-23 12:43] LABS: Anisocytosis 2+; Blood Morphology Comment NOTED (NOT SEEN); Ovalocytes SLIGHT; Platelet Estimate ADEQ; White Blood Cell Scan OK (OK)
[2024-08-23] MEDS ORDERED: NA CHLORIDE 0.9% 50 ML ONE (12:43)
[2024-08-23] MEDS ORDERED: TAMSULOSIN 0.4 MG SR CAP ONE (12:43)
--- NOTE | 2024-08-23 13:41 | ER ---
Nurse's Notes [facility] Name: Ramesh Mesa Jr Age: 88 yrs Sex: Male : 1935 Arrival Date: 08/23/2024 Time: 09:35 Bed 19 Private MD: Diagnosis: UTI/ Urinary tract infection, site not specified;Hematuria, unspecified;Weakness;Altered mental status, unspecified;Hydronephrosis with renal and ureteral calculous obstruction-SUSPECT 4 MM DISTAL LEFT URETER 4 MM CALCULI, NO SIGNIFICANT HYDRO Presentation: 08/23 09:59 Chief complaint: Patient's son or daughter states: blood in urine this morning, more iw confused over past 3 days. Coronavirus screen: At this time, the client does not indicate any symptoms associated with coronavirus-19. Ebola Screen: No symptoms or risks identified at this time. Initial Sepsis Screen: Does the patient meet any 2 criteria? No. Patient's initial sepsis screen is negative. Does the patient have a suspected source of infection? No. Patient's initial sepsis screen is negative. Risk Assessment: Do you want to hurt yourself or someone else? Patient reports no desire to harm self or others. 09:59 Method Of Arrival: Wheelchair iw 09:59 Acuity: EDIN 3 iw Historical: - Allergies: 10:00 No Known Allergies; iw - PMHx: 10:00 Migraines; neuropathy; Dementia; depressive disorder; Hypertensive disorder; right hand iw tremors; - Immunization history:: Adult Immunizations unknown. - Infectious Disease History:: Denies. - Family history:: not pertinent. - Social history:: Smoking status: Patient denies any tobacco usage or history of. Screenin:48 [facility] ED Fall Risk Assessment (Adult) History of falling in the last 3 months, db including since admission No falls in past 3 months (0 pts) Confusion or Disorientation No (0 pts) Intoxicated or Sedated No (0 pts) Impaired Gait Yes (1 pt) Mobility Assist Device Used Yes (1 pt) Altered Elimination No (0 pt) Score/Fall Risk Level 0 - 2 = Low Risk Oriented to surroundings, Maintained a safe environment, Educated pt \T\ family on fall prevention, incl call for assistance when getting out of bed. 15:28 Abuse screen: Denies threats or abuse. Denies injuries from another. Nutritional db screening: No deficits noted. Tuberculosis screening: No symptoms or risk factors identified. Assessment: 10:49 Reassessment: Patient appears in no apparent distress at this time. Patient and/or iw family updated on plan of care and expected duration. Pain level reassessed. Patient is alert, oriented x 3, equal unlabored respirations, skin warm/dry/pink. General: Appears in no apparent distress. comfortable, Behavior is calm, cooperative. Pain: Denies pain. Neuro: Level of Consciousness is awake, alert, obeys commands. Respiratory: Airway is patent Respiratory effort is even, unlabored, Respiratory pattern is regular, symmetrical. : Parent/caregiver report the patient having BLOOD IN URINE. 11:20 Reassessment: NOTIFIED DR. RIVERA UNABLE TO OBTAIN IV ACCESS. NOTIFIED CHARGE NURSE db PATIENT IS REQUESTING ULTRASOUND IV. 11:35 Reassessment: NOTIFIED PHLEBOTOMY OF NEED FOR BLOOD DRAW. STATES WILL COME FOR DRAW. db 11:38 Reassessment: Patient appears in no apparent distress at this time. Patient and/or db family updated on plan of care and expected duration. Pain level reassessed. Patient is alert, oriented x 3, equal unlabored respirations, skin warm/dry/pink. LAB IS AT BEDSIDE FOR BLOOD DRAW. 11:52 Reassessment: LAB COLLECTED BLOOD SUCCESSFULLY. db 14:46 Reassessment: Patient appears in no apparent distress at this time. Patient and/or db family updated on plan of care and expected duration. Pain level reassessed. Patient is alert, oriented x 3, equal unlabored respirations, skin warm/dry/pink. Vital Signs: 12:17 BP 126 / 60; Pulse 50; Resp 16; Pulse Ox 97% on R/A; db 13:00 BP 108 / 65; Pulse 67; Resp 16; Pulse Ox 97% on R/A; db 14:00 BP 128 / 65; Pulse 50; Resp 16; Pulse Ox 96% ; db 14:30 BP 119 / 72; Pulse 55; Resp 16; Temp 98.2(O); Pulse Ox 95% ; db 15:00 BP 117 / 65; Pulse 50; Resp 18; Pulse Ox 100% on R/A; db ED Course: 09:37 Patient arrived in ED. ra3 09:46 Nemesio Rivera MD is Attending Physician. che 10:00 Triage completed. iw 10:09 CT Head Brain wo Cont In Process Unspecified. EDMS 10:10 CT Stone Protocol In Process Unspecified. EDMS 10:10 Marlin Emerson, RN is Primary Nurse. iw 10:32 Missed attempt(s): 22 gauge in right antecubital area. Bleeding controlled, band aid db applied, catheter tip intact. 10:49 Arm band placed on right wrist. Patient placed in an exam room. iw 10:49 Missed attempt(s): 22 gauge in right hand. Bleeding controlled, band aid applied, db catheter tip intact. 11:04 XRAY Chest (1 view) In Process Unspecified. EDMS 11:14 EKG done, by ED staff, reviewed by Nemesio Rivera MD. nh2 11:15 Missed attempt(s): 22 gauge in right antecubital area. bc6 11:19 Missed attempt(s): 24 gauge in right forearm. bc6 12:08 Accessed peripheral vein via ultrasound, utilizing dynamic ultrasound technique Clean \T\ cm10 dry. Dressing intact. Good blood return. Flushes easily. 20G left forearm. Flushed left forearm with 5 ml normal saline. 13:38 Aleksandra Armando MD is Hospitalizing Provider. che 14:00 Placed in gown. db 14:47 Patient has correct armband on for positive identification. Bed in low position. Call db light in reach. Side rails up X2. Client placed on continuous cardiac and pulse oximetry monitoring. NIBP monitoring applied. quality assurance monitor final on. Pulse ox on. NIBP on. Warm blanket given. Pillow given. 15:28 Provided Education on: ADMISSION. db 15:28 No provider procedures requiring assistance completed. Patient admitted, IV remains in db place. Administered Medications: 12:21 Drug: NS 0.9% IV 500 ml IV at per protocol once; to be given as a bolus over 30 minutes db Route: IV; Rate: per protocol; Site: left forearm; 13:00 Follow up: IV Status: Completed infusion iw 13:10 Drug: NS 0.9% IV 1000 ml IV at 125 ml/hr continuous Route: IV; Rate: 125 ml/hr; Site: db left forearm; 15:25 Follow up: IV Status: Infusion continued upon admission iw 13:24 Drug: Flomax PO 0.4 mg PO once Route: PO; db 13:24 Drug: Rocephin IV 1 grams IV at per protocol once; Given slow IV push per pharmacy db instructions Route: IV; Rate: per protocol; Site: right antecubital; 13:30 Follow up: IV Status: Completed infusion iw Medication: 14:46 VIS not applicable for this client. db Outcome: 13:40 Decision to Hospitalize by Provider. che 15:28 Admitted to Med/surg with chart, Report called to FAXED TO UNIT. CALLED db 15:28 Condition: stable 15:28 Instructed on the need for admit, 15:33 Patient left the ED. db Signatures: Dispatcher [employer] EDMS Nemesio Rivera MD MD cha Williams, Irene, RN RN iw Simona Contreras RN RN db Gogo Gaitan6 Toyin De Paz RN RN cm10 Yanci Reynoso 3 Real Ledesma, Og [facility] Corrections: (The following items were deleted from the chart) 11:32 10:49 Missed attempt(s): 22 gauge in right hand. Bleeding controlled, band aid applied, db catheter tip intact. iw 11:32 10:32 Missed attempt(s): 22 gauge in right antecubital area. Bleeding controlled, band db aid applied, catheter tip intact. iw 12:09 12:08 Accessed peripheral vein via ultrasound, utilizing dynamic ultrasound technique cm10 Clean \T\ dry. Dressing intact. Good blood return. Flushes easily. cm10 12:35 12:30 Rocephin IV 1 grams IV at per protocol in left antecubital db db
--- NOTE | 2024-08-23 13:41 | EDPHYS ---
Physician Documentation [facility] Name: Ramesh Mesa Jr Age: 88 yrs Sex: Male : 1935 Arrival Date: 08/23/2024 Time: 09:35 Bed 19 Private MD: ED Physician Nemesio Topete HPI: 08/23 12:19 This 88 yrs old Male presents to ER via Wheelchair with complaints of Blood che in urine altered. 12:19 The patient presents with urinary symptoms, dysuria, HEMATURIA, Last void was was just che prior to arrival. Onset: The symptoms/episode began/occurred 3 day(s) ago. Modifying factors: The symptoms are alleviated by nothing, the symptoms are aggravated by nothing. The patient presents with decreased mental status. Possible causes: CVA or TIA, head injury, low blood sugar, seizure, sepsis. Associated signs and symptoms: Pertinent positives: confusion, dizziness, lightheadedness, weakness. Associated signs and symptoms: Pertinent positives: nausea. Current symptoms: In the emergency department the patient's symptoms have improved, mildly. Historical: - Allergies: 10:00 No Known Allergies; iw - PMHx: 10:00 Migraines; neuropathy; Dementia; depressive disorder; Hypertensive disorder; right hand iw tremors; - Immunization history:: Adult Immunizations unknown. - Infectious Disease History:: Denies. - Family history:: not pertinent. - Social history:: Smoking status: Patient denies any tobacco usage or history of. ROS: 12:19 Constitutional: Negative for fever, chills, and weight loss, Eyes: Negative for injury, che pain, redness, and discharge, ENT: Negative for injury, pain, and discharge, Neck: Negative for injury, pain, and swelling, Cardiovascular: Negative for chest pain, palpitations, and edema, Respiratory: Negative for shortness of breath, cough, wheezing, and pleuritic chest pain, Abdomen/GI: Negative for abdominal pain, nausea, vomiting, diarrhea, and constipation, Back: Negative for injury and pain, MS/Extremity: Negative for injury and deformity, Skin: Negative for injury, rash, and discoloration, Psych: Negative for depression, anxiety, suicide ideation, homicidal ideation, and hallucinations, Allergy/Immunology: Negative for hives, rash, and allergies, Endocrine: Negative for neck swelling, polydipsia, polyuria, polyphagia, and marked weight changes, Hematologic/Lymphatic: Negative for swollen nodes, abnormal bleeding, and unusual bruising, 12:19 : Positive for urinary frequency, hematuria, 12:19 Neuro: Positive for weakness, Exam: 12:19 Constitutional: This is a well developed, well nourished patient who is awake, alert, che and in no acute distress. Head/Face: Normocephalic, atraumatic. Eyes: Pupils equal round and reactive to light, extra-ocular motions intact. Lids and lashes normal. Conjunctiva and sclera are non-icteric and not injected. Cornea within normal limits. Periorbital areas with no swelling, redness, or edema. ENT: Nares patent. No nasal discharge, no septal abnormalities noted. Tympanic membranes are normal and external auditory canals are clear. Oropharynx with no redness, swelling, or masses, exudates, or evidence of obstruction, uvula midline. Mucous membranes moist. Neck: Trachea midline, no thyromegaly or masses palpated, and no cervical lymphadenopathy. Supple, full range of motion without nuchal rigidity, or vertebral point tenderness. No Meningismus. Chest/axilla: Normal chest wall appearance and motion. Nontender with no deformity. No lesions are appreciated. Cardiovascular: Regular rate and rhythm with a normal S1 and S2. No gallops, murmurs, or rubs. Normal PMI, no JVD. No pulse deficits. Respiratory: Lungs have equal breath sounds bilaterally, clear to auscultation and percussion. No rales, rhonchi or wheezes noted. No increased work of breathing, no retractions or nasal flaring. Abdomen/GI: Soft, non-tender, with normal bowel sounds. No distension or tympany. No guarding or rebound. No evidence of tenderness throughout. Back: No spinal tenderness. No costovertebral tenderness. Full range of motion. Skin: Warm, dry with normal turgor. Normal color with no rashes, no lesions, and no evidence of cellulitis. MS/ Extremity: Pulses equal, no cyanosis. Neurovascular intact. Full, normal range of motion. Psych: Awake, alert, with orientation to person, place and time. Behavior, mood, and affect are within normal limits. 12:19 : CVA tenderness, is absent, Male external genitalia: normal, Bladder: is normal, Sexual behavior: the patient is not sexually active, 12:19 Neuro: Orientation: is normal, appropriate for stated age, no acute changes, Mentation: slow to respond, Memory: appropriate for stated age, Cranial nerves: grossly normal, is grossly normal based on the patient's age, no acute changes, Cerebellar function: is grossly normal based on the patient's age, no acute changes, Motor: is grossly normal based on the patient's age, no acute changes, moves all fours, strength is normal, strength is 5/5 in all extremities, Sensation: is normal, Gait: not tested. seizure activity, is not displayed by the patient, 13:52 ECG was reviewed by the Attending Physician. [facility] Vital Signs: 12:17 BP 126 / 60; Pulse 50; Resp 16; Pulse Ox 97% on R/A; db 13:00 BP 108 / 65; Pulse 67; Resp 16; Pulse Ox 97% on R/A; db 14:00 BP 128 / 65; Pulse 50; Resp 16; Pulse Ox 96% ; db 14:30 BP 119 / 72; Pulse 55; Resp 16; Temp 98.2(O); Pulse Ox 95% ; db 15:00 BP 117 / 65; Pulse 50; Resp 18; Pulse Ox 100% on R/A; db MDM: 09:46 Medical Screening Exam initiated che 12:23 Differential diagnosis: nonspecific abdominal pain, UTI, urinary retention, Fisher che catheter problem, prostatitis, urethritis. Differential Diagnosis altered mental status, sepsis, flu. Differential Diagnosis: CVA, electrolyte abnormality, hypoglycemia, intracranial bleed, meningitis, overdose, pneumonia, seizure, sepsis, TIA, UTI, volume depletion. Data reviewed: vital signs, nurses notes, EMS record, lab test result(s), EKG, radiologic studies, CT scan. Consideration of Admission/Observation Patient was admitted/placed on observation. Escalation of care including admission/observation considered. I considered the following discharge prescriptions or medication management in the emergency department Medications were administered in the Emergency Department. See MAR. Independent interpretation of the following test(s) in the Emergency Department EKG: See my EKG interpretation above. Test considered but Not performed: Ultrasound NO RENAL USG, NO ABD USG. Historians other than the Patient: Daughter/Son: SON WELL INFORMED. 08/23 09:49 Order name: Basic Metabolic Panel; Complete Time: 13:13 [facility] 08/23 09:49 Order name: CBC with Diff; Complete Time: 13:13 [facility] 08/23 09:49 Order name: LFT's; Complete Time: 13:13 [facility] 08/23 09:49 Order name: Magnesium; Complete Time: 13:13 [facility] 08/23 09:49 Order name: NT PRO-BNP; Complete Time: 13:13 [facility] 08/23 09:49 Order name: PT-INR; Complete Time: 12:08 [facility] 08/23 09:49 Order name: Troponin HS; Complete Time: 13:13 [facility] 08/23 09:49 Order name: Lipase; Complete Time: 13:13 [facility] 08/23 09:49 Order name: Urinalysis w/ reflexes [facility] 08/23 09:49 Order name: Urine Culture [facility] 08/23 09:58 Order name: Blood Culture Adult (2) [facility] 08/23 12:44 Order name: CBC Smear Scan [facility] 08/23 09:49 Order name: XRAY Chest (1 view); Complete Time: 12:08 [facility] 08/23 09:49 Order name: CT Head Brain wo Cont; Complete Time: 12:08 [facility] 08/23 09:49 Order name: CT Stone Protocol; Complete Time: 12:08 [facility] 08/23 09:49 Order name: EKG; Complete Time: 09:50 [facility] 08/23 13:48 Order name: CONS Physician Consult [facility] 08/23 09:49 Order name: Cardiac monitoring; Complete Time: 11:28 [facility] 08/23 09:49 Order name: EKG - Nurse/Tech; Complete Time: 11:28 [facility] 08/23 09:49 Order name: IV Saline Lock; Complete Time: 13:39 [facility] 08/23 09:49 Order name: Labs collected and sent; Complete Time: 11:51 [facility] 08/23 09:49 Order name: O2 Per Protocol; Complete Time: 11:28 [facility] 08/23 09:49 Order name: O2 Sat Monitoring; Complete Time: 11:28 [facility] 08/23 13:15 Order name: Misc. Order: PLEASE GET UA; Complete Time: 13:39 [facility] EC:52 Rate is 54 beats/min. Rhythm is regular. QRS [place] is Normal. IN interval is prolonged che at 230 msec. QRS interval is normal. QT interval is normal. No Q waves. T waves are Normal. No ST changes noted. Clinical impression: 1st degree heart block, Sinus bradycardia, and No evidence of ischemia. Administered Medications: 12:21 Drug: NS 0.9% IV 500 ml IV at per protocol once; to be given as a bolus over 30 minutes db Route: IV; Rate: per protocol; Site: left forearm; 13:00 Follow up: IV Status: Completed infusion iw 13:10 Drug: NS 0.9% IV 1000 ml IV at 125 ml/hr continuous Route: IV; Rate: 125 ml/hr; Site: db left forearm; 15:25 Follow up: IV Status: Infusion continued upon admission iw 13:24 Drug: Flomax PO 0.4 mg PO once Route: PO; db 13:24 Drug: Rocephin IV 1 grams IV at per protocol once; Given slow IV push per pharmacy db instructions Route: IV; Rate: per protocol; Site: right antecubital; 13:30 Follow up: IV Status: Completed infusion iw Disposition: 13:59 Critical Care:. che Disposition Summary: 08/23/24 13:40 Hospitalization Ordered Notes: Hospitalization Status: Inpatient Admission che Provider: Aleksandra Armando cha Location: Telemetry/[facility] (Inpatient) che Condition: Stable che Problem: new che Symptoms: have improved che Bed/Room Type: Standard che Room Assignment: 224(08/23/24 14:44) bd Diagnosis - UTI/ Urinary tract infection, site not specified che - Hematuria, unspecified che - Weakness che - Altered mental status, unspecified che - Hydronephrosis with renal and ureteral calculous obstruction - SUSPECT 4 MM DISTAL che LEFT URETER 4 MM CALCULI, NO SIGNIFICANT HYDRO Forms: - Medication Reconciliation Form che - SBAR form che - Leadership Thank You Letter che Critical care time excluding procedures: 13:59 Critical care time: Bedside Care: 25 minutes, Consultation: 10 minutes, Family che Intervention: 10 minutes. Total time: 45 minutes Signatures: Dispatcher [employer] EDYulisa Sosa Corey, MD MD cha Williams, Irene, RN RN iw Benton, Danielle, RN RN db Corrections: (The following items were deleted from the chart) 09:50 09:49 BASIC METABOLIC PANEL+C.LAB.BRZ ordered. EDMS EDMS 09:50 09:49 CBC+H.LAB.BRZ ordered. EDMS EDMS 09:50 09:49 HEPATIC FUNCTION+C.LAB.BRZ ordered. EDMS EDMS 09:50 09:49 MAGNESIUM+C.LAB.BRZ ordered. EDMS EDMS 09:50 09:49 PROBNP+C.LAB.BRZ ordered. EDMS EDMS 09:50 09:49 PROTIME (+INR)+COAG.LAB.BRZ ordered. EDMS EDMS 09:50 09:49 Troponin High Sensitivity+C.LAB.BRZ ordered. EDMS EDMS 09:50 09:49 LIPASE+C.LAB.BRZ ordered. EDMS EDMS 09:50 09:49 Urinalysis+U.LAB.BRZ ordered. EDMS EDMS 09:50 09:49 Urine Culture+BA.LAB.BRZ ordered. EDMS EDMS 09:50 09:50 Head Brain Wo Cont+CT.RAD.BRZ ordered. EDMS EDMS 09:50 09:50 Stone Protocol+CT.RAD.BRZ ordered. EDMS EDMS 09:58 09:58 BLOOD CULTURE*+BA.LAB.BRZ ordered. EDMS EDMS 14:29 13:40 che bd 14:44 14:29 214 bd bd
[2024-08-23 13:53] LABS: Calcium Oxalate Crystals- Ur Few /HPF (None Seen); Specific Gravity 1.018 (1.005-1.030); Sqamous Epithelial None Seen /HPF (None Seen); Urine Bacteria <20 /HPF (<20); Urine Bilirubin NEGATIVE (Negative); Urine Blood 3+ (OVER) (Negative); Urine Clarity Extremely Turbid (Clear); Urine Color Light-Orange (Yellow); Urine Culture Reflex Order REFLEXED; Urine Glucose NEGATIVE (Negative); Urine Ketones NEGATIVE (Negative); Urine Microscopic Reflex YN ORDER UMIC; Urine Mucus 1+ /HPF (None Seen); Urine Nitrite NEGATIVE (Negative); Urine Protein TRACE (Negative); Urine RBC >50 /HPF (None Seen); Urine Urobilinogen Normal (Normal); Urine Yeast (Budding) Few /HPF (None Seen); Urine pH 6.5 (5.0-7.0)
[2024-08-23] MEDS: NA CHLORIDE 0.9% 1,000 ML IV SCH (16:10)
[2024-08-23] MEDS ORDERED: ACETAMINOPHEN 325 MG TABLET PO PRN (16:12)
[2024-08-23] MEDS ORDERED: ONDANSETRON 4 MG/2 ML VIAL IV PRN (16:12)
--- NOTE | 2024-08-23 17:26 | P.CNS ---
Date of Consult: 08/23/24 Reason for Consult: Obstructive ureterolithiasis Requesting Physician: Nemesio Topete Chief Complaint: Gross hematuria History of Present Illness: 88-year-old gentleman with dementia, history of TIA about 8 months ago found to be associated with A-fib, now on Eliquis, recently admitted with a ruptured gastric ulcer due to underlying GERD, presented to the emergency department because of gross hematuria. At baseline, he has a significant degree of physical instability, and his daughter and her assist him with movement, particularly when awaking to go to the bathroom in the morning. This morning, they got him up to find the presence of gross hematuria in the toilet and bloody urine in the bed. The patient is otherwise incontinent and wears depends undergarments. They noted he was also significantly weaker, though they denied any fever or chills noticeable. On questioning, the patient acknowledges having at some left flank pain since he was in the hospital about 4 weeks ago. He has been on topiramate for neck pain, which was presumptively associated with migraines. At present, he does not complain of any significant pain. Past medical history: As above Past surgical history: C-spine surgery with plate No known drug allergies Social history: Remote history of social smoking Family history: No urologic malignancy Examination: Reasonably well-appearing and in no acute distress Alert and awake No dyspnea or sign of respiratory distress Abdomen soft, nontender, nondistended No significant CVA tenderness elicited on the left No lower extremity tenderness noted Lying in the hospital bed reasonably comfortable 08/23/2024 WBC 7.5, hemoglobin 11.8, platelets 179, INR 1.34, creatinine 0.86, proBNP 594, UA micro trace leukocyte esterase, 10-20 WBCs per hpf, greater than 50 RBCs per hpf, no significant bacteria seen 08/23/2024 CT abdomen and pelvis without contrast radiologist impression: 4 mm stone suspected distal left ureter. No significant hydronephrosis. Moderate stool retention throughout the colon. Sigmoid diverticulosis coli without diverticulitis. 08/23/2024 chest x-ray unremarkable -I reviewed the images of the CT scan in detail, and I appreciated the presence of the extramural ureter left ureterolithiasis measuring about 4.5 mm in longitudinal length by 2 to 3 mm in width associated with mild pelviectasis appreciable to my review. Assessment and recommendation: 88-year-old gentleman with dementia, history of TIA about 8 months ago found to be associated with A-fib, now on Eliquis, recently admitted with a ruptured gastric ulcer due to underlying GERD, on topiramate for neck pain/migraines now with distal 4.5 mm obstructive left ureterolithiasis associated with some mild intermittent left flank pain and perhaps gross hematuria but no signs of JAS, complicated UTI, intractable nausea/vomiting. -I counseled the patient and his daughter, who is with him at the bedside, that he had passed the stone nearly 95% of the way out, and given the size of his stone, he had approximately 60% chance of successfully being able to completely expelled the stone. I explained that this could take potentially another couple of weeks, during which time he would have to remain afebrile, be able to tolerate a diet, and have pain that was not significant or unmanageable. We do not think he will be able to strain his urine for stone given his baseline incontinence and use of depends undergarments. However I explained the risks of an operative-anesthetic event at this time seem to outweigh the benefits. As such, I recommended the following: -Consider Flomax 0.4 mg daily taken at bedtime to assist with the ureteral colic and spasms -Pain management as necessary, ketorolac effective with gentle narcotic as needed -Increase volume of water intake -Await results of urine culture -We will arrange renal ultrasound to assess for persistence of left-sided hydronephrosis in about 2 weeks time as an outpatient. -Follow-up for outpatient cystoscopy in evaluation of his gross hematuria in approximately 2 to 3 weeks, unless operative investigation is required because of failure to pass the stone based on the ultrasound. If ultrasound is equivocal, may need to repeat evaluation with CT scan, potentially CT urography. -Notify me if patient becomes febrile or otherwise shows signs of decompensation over these next 23 hours of observation, as I anticipate him to be eligible for discharge tomorrow morning. Allergies No Known Allergies Allergy (Verified 06/10/24 20:45) Home medications list reviewed: Yes Home Medications: Amitriptyline [Elavil*] 1 tab PO BEDTIME 06/10/24 Cetirizine HCl [Zyrtec*] 1 tab PO DAILY 06/10/24 Escitalopram Oxalate 10 mg PO DAILY 06/10/24 Ferrous Sulfate [Iron] 325 mg PO DAILY 06/10/24 Gabapentin [Neurontin*] 100 mg PO BID 06/10/24 Losartan Potassium [Cozaar*] 50 mg PO DAILY 06/10/24 Meloxicam [Mobic] 15 mg PO DAILY 06/10/24 Memantine HCl [Namenda*] 10 mg PO BID 06/10/24 Quetiapine Fumarate [Seroquel] 25 mg PO BEDTIME 06/10/24 Topiramate [Topamax*] 25 mg PO BID 06/10/24 hydroCHLOROthiazide [Hydrochlorothiazide] 1 tab PO DAILY 06/10/24 Metoprolol Tartrate [Lopressor*] 25 mg PO BID 6AM 6PM #60 tab 06/11/24 - Past Medical/Surgical History Diabetic: No -: Dementia -: Depression -: Hypertension -: Right hand tremor -: None Psychosocial/ Personal History: Lives at home with his adult children - Social History Smoking Status: Unknown if ever smoked Physical Examination Temp Pulse Resp BP Pulse Ox 97.9 F 51 14 131/59 L 97 08/23/24 16:00 08/23/24 16:00 08/23/24 16:00 08/23/24 16:00 08/23/24 16:00 Laboratory Data (last 24 hrs) 08/23/24 08/23/24 08/23/24 11:38 11:38 11:38 WBC 7.50 Hgb 11.8 L Hct 37.9 L Plt Count 179 PT 14.9 H INR 1.34 Sodium 143 Potassium 4.1 BUN 14 Creatinine 0.86 Glucose 101 Magnesium 1.9 Total Bilirubin 0.5 AST 13 L ALT 17 Alkaline Phosphatase 93 Lipase 20 - Problems (1) Gross hematuria Current Visit: Yes Status: Acute (2) Ureterolithiasis Current Visit: Yes Status: Acute (3) Left flank pain Current Visit: Yes Status: Acute (4) Hydronephrosis, left Current Visit: Yes Status: Acute Critical Care: No Time Spent Managing Pts care (In Minutes): 45
[2024-08-23 18:44] VITALS: BMI 26.4
[2024-08-23] MEDS: MEMANTINE HCL 10 MG TABLET PO SCH (21:20)
[2024-08-23] MEDS: TOPIRAMATE 25 MG TAB PO SCH (21:20)
[2024-08-23] MEDS: APIXABAN 5 MG TABLET PO SCH (21:20)
[2024-08-23] MEDS: TAMSULOSIN 0.4 MG SR CAP PO SCH (21:20)
[2024-08-23] MEDS: GABAPENTIN 100 MG CAP PO SCH (21:20)
[2024-08-23] MEDS: FAMOTIDINE 20 MG/2 ML VIAL IV SCH (21:20)
[2024-08-23] MEDS: METOPROLOL TAR 25 MG TAB PO SCH (21:21)
[2024-08-23] MEDS: TRAZODONE 50 MG TABLET PO SCH (21:23)
[2024-08-23 22:27] VITALS: O2SAT 97
--- NOTE | 2024-08-24 01:26 | HP ---
Date of Admission: 08/23/2024 Chief Complaint: Blood in urine and feeling weak. History Of Present Illness: This is an 88-year-old pleasant male patient, who lives at home with his daughter and son-in-law, was brought into emergency room with few days' history of increasing genera lized weakness and this morning, the patient's son-in-law noted that after the patient had urinated, water in the commode was bloody-looking and saw some blood stains on the bedsheets. So with that, e patient was brought into emergency room. The patient denies any abdominal pain, fever, chills, bryant sea, or vomiting. After he was evaluated in ER, he was admitted to hospital with stone and urinary t ract infection. The patient was started on IV fluid, IV antibiotics, and Urology consultation was ob tained from Dr. Cunningham who has already seen the patient prior to my arrival at hospital. When I saw him, his daughter was with him at bedside and prior to my arrival to hospital, I did communicate wit h the patient's son-in-law about all the details as well. Allergies: NO KNOWN ALLERGIES. Medications: Amiodarone 200 mg daily, Eliquis 5 mg 2 times a day, escitalopram 10 mg daily, ferrous sulfate 325 mg daily, gabapentin 100 mg takes 2 capsules 2 times a day, memantine 5 mg 2 times a day, metoprolol 25 mg half a tablet 2 times a day, pantoprazole 40 mg daily, Exelon patch 4.6 mg transder mal patch, calcitonin nasal spray daily, Imitrex p.r.n., Topamax 25 mg daily at bedtime. Review of Systems: Constitutional: As mentioned above. Genitourinary: As mentioned above. All other systems reviewed and negative. Past Medical History: Significant for migraine, tremor, Alzheimer's disease, hypertension, hyperlipi demia, diverticulosis, benign prostatic hypertrophy, osteoarthritis at multiple sites, insomnia. Past Surgical History: Cervical spine surgery. Family History: Father , had COPD. Mother , details unknown. Brother , had some unknow n type of cancer. Social History: Negative for smoking and alcohol use. Physical Examination: Vital Signs: Temperature 97.9, pulse 51, respiratory rate 14, blood pressure 131/59, oxygen saturati on 97%. Height 6 feet 1 inch, weight 200 pounds. General: Awake, alert, oriented, not in distress. HEENT: Head atraumatic, normocephalic. Conjunctivae nonerythematous. Sclerae white. Mouth, no thr ush or edema noted. Ears/Nose, no mass, lesion, discharge noted. Neck: Supple. No JVD, lymph nodes, bruit, thyromegaly noted. Lungs: Bilateral good equal air entry. Clear to auscultation. No rhonchi. No rales. Heart: Normal heart sounds, no murmur or gallop. Abdomen: Soft, bowel sounds normal. No guarding, rigidity, tenderness, mass, hepatosplenomegaly, dis tention, or bruit noted. Extremities: No leg edema. No calf tenderness. Skin: No rash, ulcer, cellulitis. Lymphatics: No lymph node enlargement in neck, supraclavicular, infraclavicular region. Neuro: No focal neurological deficit. Chest: Unremarkable. External Genitalia: Deferred. Rectal: Deferred. Laboratory Data: WBC 7.5, hemoglobin 11.8, platelets 179. Sodium 143, potassium 4.1, chloride 114, bicarb 25, BUN 14, creatinine 0.86, glucose 101. Liver function tests unremarkable. Troponin 12.5. Lipase 20. Urinalysis, leukocyte esterase 75, rbc more than 50, wbc 10 to 20. CAT scan of the abdo men and pelvis shows 4 mm stone suspected in the distal left ureter. No significant hydronephrosis. Moderate amount of stool retention with sigmoid diverticulosis without diverticulitis. Chest x-ray, no acute changes. CT scan of the head was negative for any acute intracranial changes. Impression: 1.Left ureter stone. 2.Anemia, unspecified. 3.Alzheimer's disease. 4.Hypertension. 5.Hyperlipidemia. 6.Diverticulosis. 7.Benign prostatic hypertrophy. 8.Osteoarthritis, multiple sites. Plan: We will go ahead and admit the patient to hospital for further evaluation and management of th is problem. The patient is appropriate for observation. IV fluid was started and we will start the patient on tamsulosin per order. For urinary tract infection, urine culture was sent. We will start empiric antibiotic ceftriaxone and we will plan to discharge him with oral antibiotics and follow up on the urine culture and depending on culture results, we will decide about culture specific antibio tic if necessary. For left ureter stone, the patient has very small stone which is 4 mm in size. Wi thout any definite hydronephrosis, there is a good possibility, he might be able to pass the stone on his own without any surgical intervention and Urology consultation has been obtained from Dr. Andrea rai who has already seen the patient and he will follow up on outpatient basis as well. I have instruc darrel the patient and the patient's daughter that after discharge from the hospital, if he starts to george ve abdominal pain or fever, he will need to return back to emergency room. For hypertension, we will continue his antihypertensive medication per order and no need for further intervention. We will co ntinue his Eliquis and amiodarone per order and no need for any further intervention. The patient ta kes Topamax for migraine prevention and we will continue that also per order. The patient has Home H ealth Service with [facility] and home physical therapy and occupational therapy and I have requested Soc ial Service consultation to make arrangements for the patient to resume his home health care services with [facility] along with home physical therapy and occupational therapy upon discharge. I will see tyshawn kay tomorrow for followup, possible discharge to go home tomorrow depending on his condition, and detai ls and plan of treatment discussed with the patient and the patient's daughter. Advance directive wa s discussed with the patient's son-in-law and as per the decision made by the patient in the past nova t he has decided not to have any heroic measures like CPR, ventilator support, or defibrillation and DNR order was written in the chart. Total time spent 80 minutes that includes review of last office visit record from 07/17/2024, communi cation with family, communication with emergency room physician, review of emergency room visit record, and performing today's evaluation an d management. ROBERTH/MODL Voice ID: [id number]
[2024-08-24 05:43] LABS: Absolute Eosinophils 0.2 K/uL (0-0.5); Absolute Lymphocytes (CBC) 0.8 K/uL (0.7-4.9); Absolute Monocytes 0.5 K/uL (0.1-1.3); Absolute Neutrophil 2.9 K/uL (1.8-8.0); Basophils % 0.4 % (0-1.3); Eosinophils % 4.5 % (0-4.4); Hematocrit 38.1 % (39.6-49.0); Hemoglobin 11.7 g/dL (13.6-17.9); MCH 29.8 pg (27.0-35.0); MCHC 30.6 g/dL (32.0-36.0); MCV 97.1 fL (80-100); MPV 8.3 fL (7.6-11.3); Monocytes % 10.4 % (3.3-12.3); Neutrophils % 66.7 % (41.7-73.7); Nucleated Red Blood Cells % 0.1 % (0-0); Platelets 170 thou/uL (152-406); RBC Red Blood Cell Count 3.92 M/uL (4.33-5.43); Red Cell Distribution Width 22.8 % (12.1-15.2)
[2024-08-24 06:00] LABS: Anion Gap 5.9 mEq/L (5.0-15.0); Potassium 3.9 mEq/L (3.5-5.1); Troponin High Sensitivity 12.7 pg/mL (<58.9)
[2024-08-24] MEDS: ESCITALOPRAM 20 MG TAB PO SCH (09:00)
[2024-08-24] MEDS ORDERED: ENOXAPARIN 40 MG/0.4 ML SQ SCH (09:00)
[2024-08-24] MEDS: CEFTRIAXONE 1,000 MG in NA CHLORIDE 0.9% 50 ML IVPB SCH (09:00)
[2024-08-24] MEDS: AMIODARONE HCL 200 MG TAB PO SCH (09:10)
[2024-08-24] MEDS: ASPIRIN EC 81 MG TAB PO SCH (09:10)
--- NOTE | 2024-08-24 11:36 | EKG ---
Test Date: 2024-08-23 Test Time: 10:27:44 Street Photographer: SUNDAY MEASUREMENT RESULTS: Intervals: Rate: 54 WY: 230 QRSD: 100 QT: 452 QTc: 428 [place]: P: 82 WY: 230 QRS: -23 T: 19 INTERPRETIVE STATEMENTS: Sinus bradycardia with 1st degree AV block Nonspecific T wave abnormality Abnormal ECG Compared to ECG 06/11/2024 12:36:28 T-wave abnormality now present Sinus rhythm no longer present Electronically Signed On 08-24-24 11:32:21 TEST BORER by Jose Garcia
[2024-08-24 13:02] VITALS: BP 139/56; TEMP 97.5
--- NOTE | 2024-08-24 16:08 | DS ---
Date of Discharge: 08/24/2024 Disposition: Discharged to go home. Physical Examination: HEENT: Unremarkable. Lungs: Clear to auscultation. Heart: Sounds normal. Abdomen: Soft. Bowel sounds normal. No guarding, rigidity, tenderness, distention. Extremities: No leg edema. Labs: Yesterday, white count 7.5, hemoglobin 11.8, platelets 179. Today, white count 4.4, hemoglobi n 11.7, platelets 170. For chemistry, yesterday, sodium 143, potassium 4.1, chloride 114, bicarb 25, BUN 14, creatinine 0.86, glucose 101. Liver function tests unremarkable. Troponin 12.5 on the firs t set. Today troponin 12.7. Today, sodium 145, potassium 3.9, chloride 116, bicarb 27, BUN 11, crea tinine 0.74, glucose 95. Hospital Course: This is an 88-year-old pleasant male patient who was admitted to the hospital with complaints of generalized weakness and blood in urine. Please see dictated H and P for more informat ion. After the patient was evaluated in the emergency room, he was admitted to the hospital with a d iagnosis of 4 mm stone in the left ureter without any definite evidence of hydronephrosis. Urinalysi s was abnormal consistent with urinary tract infection. Urine culture was sent and patient was start ed on IV fluid, IV antibiotics which was ceftriaxone, and urology consultation was obtained from Dr. Cunningham and the patient was admitted to the hospital. Overnight, the patient's condition has remaine d stable. He has received IV fluid and tamsulosin was started as well. This morning overall his con dition has remained stable. His urine has cleared up to normal color and he has no abdominal pain. No fever. No nausea, vomiting. I have instructed the patient and the patient's daughter yesterday t hat if he has any change in his symptoms like starting to have fever or abdominal pain then he needs to report back to emergency room. Discharge Diagnoses: 1.Left ureter stone. 2.Anemia, unspecified. 3.Alzheimer's disease. 4.Hypertension. 5.Hyperlipidemia. 6.Diverticulosis. 7.Benign prostatic hypertrophy. 8.Osteoarthritis, multiple sites. Discharge Medications And Instructions: Continue all prior home medications. Start following medica tions and prescription will be sent to [facility] or [facility] pharmacy, Bernardo Diana from my office. 1.Tamsulosin 0.4 mg 1 capsule by mouth daily and I have instructed the patient's son-in-law today wh o was at bedside that this medication to get the maximum benefit to be taken 30 minutes after meal. 2.Cefpodoxime 100 mg take 1 tablet by mouth 2 times a day for 1 week, take it with food. 3.Follow up at my office next week. 4.Follow up with Dr. Cunningham in 2 weeks. Total time spent today 40 minutes. ROBERTH/MODL Voice ID: [id number] Report ID: [id number]
== END 2024-08-24 11:45 | disposition home or self-care (01) ==
LOC: ER 09:35 → ERHOLD 13:42 → INTOOBSV 13:42 → 2ND 14:36
PROVIDERS: ADMIT Internal Medicine; ATTEND Internal Medicine
DX: N20.1 Calculus of ureter (principal); R53.1 Weakness; I48.11 Longstanding persistent atrial fibrillation; Z79.01 Long term (current) use of anticoagulants; I10 Essential (primary) hypertension; E78.5 Hyperlipidemia, unspecified; N40.0 Benign prostatic hyperplasia without lower urinary tract symptoms; M19.90 Unspecified osteoarthritis, unspecified site; G30.9 Alzheimer's disease, unspecified; F02.80 Dementia in other diseases classified elsewhere, unspecified severity, without behavioral disturbance, psychotic disturbance, mood disturbance, and anxiety; K57.90 Diverticulosis of intestine, part unspecified, without perforation or abscess without bleeding; Z86.73 Personal history of transient ischemic attack (TIA), and cerebral infarction without residual deficits
CPT/HCPCS: 96361; 93005; 87040 ×2; 87088; 85025 ×2; 81001; 87086; 80048 ×2; 36415; 83735; 85610; 80076; 84484 ×2; 83690; 83880; 70450; 76377; 74176; 71045; 94760; 96374; 99285; J7040; J7030 ×2; J0696 ×2; G0378

== ENCOUNTER 2024-09-09 13:58 | Emergency (ER) | payer OTHER ==
--- NOTE | 2024-09-09 15:00 | RAD REPORT ---
EXAMINATION: CT HEAD WITHOUT CONTRAST CT CERVICAL SPINE WITHOUT CONTRAST CLINICAL INDICATION: Male, 88 years old. TRAUMA TECHNIQUE: Axial CT images from the skull base to the vertex without intravenous contrast. Axial CT i mages through the cervical spine were obtained without intravenous contrast. Sagittal and coronal reformatted images were created from the data set. Coronal and sagittal reformatted images were creat ed from the data set. One or more of the following dose reduction techniques were used: Automated exposure control, adjustment of the mA and/or kV according to patient size, and/or iterative reconstr uction. Unless otherwise specified, incidental findings do not require dedicated imaging follow-up. [id number]. COMPARISON: 06/10/2024 FINDINGS: Head: INTRACRANIAL: No acute intracranial hemorrhage. No hydrocephalus. No mass effect or midline shift. No significant white matter disease. Cerebral atrophy. Mild chronic small vessel ischemic changes. VASCULATURE: No visualized abnormalities in the arteries or dural venous sinuses. SCALP/SKULL: No significant soft tissue or osseous abnormalities. SINUSES: The visualized paranasal sinuses and mastoid air cells are predominantly clear. Cervical spine: ALIGNMENT: Approximately 3 mm anterolisthesis of C3 on C4. Approximately 3 mm anterolisthesis of C7 o n T1 noted. BONE: Vertebral body heights are maintained. No aggressive osseous lesions. Status post C5-C6 ACDF. T he C6 screws traverse the C6-7 disc space which is unchanged. DEGENERATIVE CHANGES: Multilevel cervical spondylosis with varying degrees of neural foraminal narrow ing. This is most pronounced on the right at C3-4 and C5-6. SOFT TISSUE: No significant abnormalities in the soft tissue of the neck. The visualized lung apices are clear. IMPRESSION: No acute intracranial abnormality. No acute fracture or traumatic malalignment of the cervical spine.
--- NOTE | 2024-09-09 15:17 | RAD REPORT ---
EXAM: Knee Left 3 View INDICATION: PAIN COMPARISON: 12/02/2023 FINDINGS: No acute fracture. Chondrocalcinosis in the medial and lateral compartment. Calcification at the medial collateral ligam ent is similar. Mild to moderate medial and mild lateral compartment narrowing. Mild patellofemoral compartment spurring. Small knee effusion. Other: n/a IMPRESSION: No evidence of acute osseous abnormality involving the imaged knee. Similar degenerative changes compared with 12/02/2023.
--- NOTE | 2024-09-09 15:17 | RAD REPORT ---
EXAMINATION: Humerus Left CLINICAL INDICATION: Male, 88 years old. PAIN COMPARISON: No prior exam. FINDINGS: No acute fracture. No malalignment/dislocation. No significant focal degenerative change. Other: n/a IMPRESSION: No acute osseous abnormality of the left humerus.
--- NOTE | 2024-09-09 15:18 | RAD REPORT ---
EXAMINATION: Forearm Left CLINICAL INDICATION: Male, 88 years old. PAIN COMPARISON: No prior exam. FINDINGS: No acute fracture. No malalignment/dislocation. No significant focal degenerative change. Other: n/a IMPRESSION: No acute osseous abnormality involving the left forearm.
[2024-09-09] MEDS ORDERED: DERMABOND SKIN ADHESIVE TOP ONE (15:27)
--- NOTE | 2024-09-09 15:55 | EDPHYS ---
Physician Documentation [facility] Name: Ramesh Mesa Jr Age: 88 yrs Sex: Male : 1935 Arrival Date: 09/09/2024 Time: 13:58 Bed 10 Private MD: ED Physician Nemesio Topete HPI: 09/09 14:38 This 88 yrs old Male presents to ER via Wheelchair with complaints of Fall Injury, kb Facial Injury, Laceration To Forehead, Arm Injury. 14:38 Pt is an 88 year old male who presents after a fall from standing position. Daughter kb states pt stood up, his chair alarm went off so they rushed in but he fell before they could get to him. Reports he fell face forward, hit his head, right arm and right knee. Denies loc. . Historical: - Allergies: 14:07 No Known Allergies; ko1 - PMHx: 14:07 Dementia; depressive disorder; Hypertensive disorder; Migraines; neuropathy; right hand ko1 tremors; - PSHx: 14:07 None; ko1 - Immunization history:: Adult Immunizations up to date, Last tetanus immunization: up to date. - Infectious Disease History:: Denies. - Social history:: Smoking status: Patient denies any tobacco usage or history of. ROS: 14:37 Constitutional: As per HPI kb Exam: 14:37 Constitutional: This is a well developed, well nourished patient who is awake, alert, kb and in no acute distress. Eyes: Pupils equal round and reactive to light, extra-ocular motions intact. Lids and lashes normal. Conjunctiva and sclera are non-icteric and not injected. Cornea within normal limits. Periorbital areas with no swelling, redness, or edema. ENT: Moist Mucous membranes Neck: Trachea midline and no cervical lymphadenopathy. Supple, full range of motion without nuchal rigidity, or vertebral point tenderness. No Meningismus. Cardiovascular: Regular rate Respiratory: Respirations even and unlabored. No increased work of breathing. Talking in full sentences Abdomen/GI: Soft, non-tender. No distention Back: No spinal tenderness. No costovertebral tenderness. Full range of motion. MS/ Extremity: Pulses equal, no cyanosis. Neurovascular intact. Full, normal range of motion. 14:37 Head/face: Noted is no obvious of injury or deformity except a laceration(s), that is superficial, 1 cm(s), of the left uatsdin, 14:37 Neuro: Exam negative for acute changes, 14:41 Skin: injury, abrasion(s), small abrasion noted, of the left knee, kb Vital Signs: 14:03 BP 145 / 66; Pulse 58; Resp 16; Temp 97; Pulse Ox 98% ; ko1 Laceration: 15:54 Wound Repair of 1cm ( 0.4in ) subcutaneous laceration to left uatsdin. Linear shaped.. kb Distal neuro/vascular/tendon intact. Wound prep: Moderate cleansing by nurse. Skin closed with thin layer Adhesive skin closure using Dermabond. Dressed with steristrips. Patient tolerated well. MDM: 14:20 Medical Screening Exam initiated kb 14:38 Data reviewed: vital signs, nurses notes. kb 14:41 Differential diagnosis: closed head injury, contusion, fracture, laceration. Historians kb other than the Patient: Daughter/Son: son and daughter. 15:54 Counseling: I had a detailed discussion with the patient and/or guardian regarding the kb historical points, exam findings, and any diagnostic results supporting the discharge/admit diagnosis, radiology results, the need for outpatient follow up, a family practitioner, to return to the emergency department if symptoms worsen or persist or if there are any questions or concerns that arise at home. 09/09 14:30 Order name: CT Head C Spine; Complete Time: 15:01 kb 09/09 14:30 Order name: Humerus Left XRAY; Complete Time: 15:20 kb 09/09 14:30 Order name: Forearm Left XRAY; Complete Time: 15:20 kb 09/09 14:30 Order name: Knee Left 3 View XRAY; Complete Time: 15:17 kb 09/09 14:31 Order name: Wound Care; Complete Time: 15:39 kb 09/09 14:31 Order name: Dermabond; Complete Time: 15:39 kb Administered Medications: No medications were administered Disposition Summary: 09/09/24 15:54 Discharge Ordered Notes: Location: Home kb Condition: Stable kb Diagnosis - Unspecified injury of head, initial encounter kb - Facial Laceration/ Laceration without foreign body of cheek and temporomandibular kb area - left uatsdin - Contusion of left shoulder kb - Abrasion of lower leg - left knee kb Followup: kb - With: Emergency Department - When: As needed - Reason: Worsening of condition Followup: kb - With: Private Physician - When: 2 - 3 days - Reason: Recheck today's complaints, Continuance of care, Re-evaluation by your physician Discharge Instructions: - Discharge Summary Sheet kb - Contusion, [id number] kb - Facial Laceration, [id number] kb - Head Injury, Adult, [id number] kb Forms: - Medication Reconciliation Form kb - Antibiotic Education kb - Prescription Opioid Use kb - Patient Portal Instructions kb - Leadership Thank You Letter kb Signatures: Dispatcher [employer] EDMS Misty Diana, SPOOL WINDER-C SPOOL WINDER-Barbara Brennan, RN RN ko1 Corrections: (The following items were deleted from the chart) 14:31 14:31 Forearm Left+RAD.RAD.BRZ ordered. EDMS EDMS 14:31 14:31 Knee Left 3 View+RAD.RAD.BRZ ordered. EDMS EDMS
--- NOTE | 2024-09-09 15:55 | ER ---
Nurse's Notes [facility] Name: Ramesh Mesa Jr Age: 88 yrs Sex: Male : 1935 Arrival Date: 09/09/2024 Time: 13:58 Bed 10 Private MD: Diagnosis: Unspecified injury of head, initial encounter;Facial Laceration/ Laceration without foreign body of cheek and temporomandibular area-left christianity;Contusion of left shoulder;Abrasion of lower leg-left knee Presentation: 09/09 14:03 Chief complaint: Patient's son or daughter states: patient stood up, took a step and ko1 fell. Hit head on tile floor. He is on Eliquis, no loss of consciousness. Coronavirus screen: At this time, the client does not indicate any symptoms associated with coronavirus-19. Ebola Screen: No symptoms or risks identified at this time. Initial Sepsis Screen: Does the patient meet any 2 criteria? No. Patient's initial sepsis screen is negative. Does the patient have a suspected source of infection? No. Patient's initial sepsis screen is negative. Risk Assessment: Do you want to hurt yourself or someone else? Patient reports no desire to harm self or others. Onset of symptoms was September 09, 2024. 14:03 Method Of Arrival: Wheelchair ko1 14:03 Acuity: EDIN 3 ko1 Triage Assessment: 14:07 General: Appears in no apparent distress. Behavior is calm, cooperative, appropriate ko1 for age. Pain: Complains of pain in left side of forehead. Historical: - Allergies: 14:07 No Known Allergies; ko1 - PMHx: 14:07 Dementia; depressive disorder; Hypertensive disorder; Migraines; neuropathy; right hand ko1 tremors; - PSHx: 14:07 None; ko1 - Immunization history:: Adult Immunizations up to date, Last tetanus immunization: up to date. - Infectious Disease History:: Denies. - Social history:: Smoking status: Patient denies any tobacco usage or history of. Screenin:30 [facility] ED Fall Risk Assessment (Adult) History of falling in the last 3 months, aa5 including since admission Yes- fall prone (multiple falls) (3 pts) Confusion or Disorientation Yes (5 pts) Intoxicated or Sedated No (0 pts) Impaired Gait Yes (1 pt) Mobility Assist Device Used Yes (1 pt) Altered Elimination Yes (1 pt) Score/Fall Risk Level 3 or more points = High Risk Oriented to surroundings, Maintained a safe environment. Abuse screen: No signs of abuse noted. Nutritional screening: No deficits noted. Tuberculosis screening: No symptoms or risk factors identified. Assessment: 15:30 General: Appears comfortable, Behavior is calm, cooperative. Pain: Complains of pain in aa5 left knee and left side of forehead. Neuro: Level of Consciousness is awake, obeys commands, confused. Cardiovascular: Patient's skin is warm and dry. Respiratory: Airway is patent Respiratory effort is even, unlabored, Respiratory pattern is regular, symmetrical. GI: Abdomen is round non-distended. : No signs and/or symptoms were reported regarding the genitourinary system. EENT: hearing aids in place. . Derm: Skin is pink, warm \T\ dry. abrasion that is quarter-sized noted to left knee, small laceration/approximately 0.5cm long noted to left side of forehead with no active bleeding noted, small abrasion to left side of nose and 2 other superficial lacerations noted to left side of forehead. No active bleeding to any sites. 15:39 Reassessment: cleaned left knee abrasion and left forehead laceration with Hibiclens aa5 and saline, dressed left knee abrasion with Neosporin,non-adherent dressing and tape. . Vital Signs: 14:03 BP 145 / 66; Pulse 58; Resp 16; Temp 97; Pulse Ox 98% ; ko1 ED Course: 13:59 Patient arrived in ED. mr 14:07 Triage completed. ko1 14:07 Arm band placed on right wrist. Patient placed in waiting room, Patient notified of ko1 wait time. 14:14 Wound care: ice pack applied. ko1 14:20 Misty Diana FNP-C is PHCP. kb 14:20 Nemesio Topete MD is Attending Physician. kb 14:54 CT Head C Spine In Process Unspecified. EDMS 15:10 Humerus Left XRAY In Process Unspecified. EDMS 15:10 Forearm Left XRAY In Process Unspecified. EDMS 15:10 Knee Left 3 View XRAY In Process Unspecified. EDMS 15:30 Patient has correct armband on for positive identification. Pt remains sitting in aa5 wheelchair, pt's family at bedside. 15:39 Brianne Li, RN is Primary Nurse. aa5 15:45 Assist provider with laceration repair on left side of forehead using Dermabond. aa5 Performed by Misty RUFFIN Patient tolerated well. 16:00 Patient did not have IV access during this emergency room visit. aa5 Administered Medications: No medications were administered Medication: 15:45 VIS not applicable for this client. aa5 Outcome: 15:54 Discharge ordered by . [email or web address] 16:00 Discharged to home via wheelchair, with family, aa5 16:00 Condition: stable 16:00 Discharge instructions given to patient, family, Instructed on discharge instructions, follow up and referral plans. wound care, Demonstrated understanding of instructions, follow-up care, wound care, 16:05 Patient left the ED. nh2 Signatures: Dispatcher [employer] EDMS Misty Diana FNP-C [employer] SECR[employer] ACT OFFICER-CkSol Mcguire, Reg Reg mr Brianne Li, RN RN aa5 Barbara Haider RN RN ko1 Real Ledesma, Go nh2 Corrections: (The following items were deleted from the chart) 17:32 16:30 Patient did not have IV access during this emergency room visit. aa5 aa5
[2024-09-09 16:43] VITALS: BP 145/66; TEMP 97; O2SAT 98
== END 2024-09-09 16:05 | disposition home or self-care (01) ==
LOC: ER 13:58
DX: S01.81XA Laceration without foreign body of other part of head, initial encounter (principal); S80.212A Abrasion, left knee, initial encounter; S40.012A Contusion of left shoulder, initial encounter; W18.30XA Fall on same level, unspecified, initial encounter
CPT/HCPCS: 12001; 70450; 72125; 99283

== ENCOUNTER 2024-09-29 09:28 | Emergency (ER) | payer OTHER ==
[2024-09-29 10:33] LABS: Absolute Basophils 0.1 K/uL (0-0.5); Absolute Lymphocytes (CBC) 0.5 K/uL (0.7-4.9); Absolute Monocytes 0.5 K/uL (0.1-1.3); Absolute Neutrophil 5.9 K/uL (1.8-8.0); Basophils % 1.1 % (0-1.3); Eosinophils % 0.4 % (0-4.4); Hematocrit 39.1 % (39.6-49.0); Hemoglobin 12.5 g/dL (13.6-17.9); Lymphocytes % 6.9 % (15.3-44.8); MCH 30.5 pg (27.0-35.0); MCHC 31.9 g/dL (32.0-36.0); MCV 95.7 fL (80-100); MPV 7.8 fL (7.6-11.3); Neutrophils % 84.6 % (41.7-73.7); Nucleated Red Blood Cells % 0.1 % (0-0); Platelets 239 thou/uL (152-406); RBC Red Blood Cell Count 4.09 M/uL (4.33-5.43); Red Cell Distribution Width 20.2 % (12.1-15.2)
[2024-09-29] MEDS ORDERED: NA CHLORIDE 0.9% 1,000 ML ONE (10:37)
[2024-09-29] MEDS ORDERED: FAMOTIDINE 20 MG/2 ML VIAL IV ONE (10:37)
[2024-09-29] MEDS ORDERED: ONDANSETRON 4 MG/2 ML VIAL ONE (10:37)
[2024-09-29 10:46] LABS: Albumin 3.9 g/dL (3.4-5.0); Albumin/Globulin Ratio 1.3 (1.1-1.8); Anion Gap 10.6 mEq/L (5.0-15.0); Bilirubin Total 1.4 mg/dL (0.2-1.0); Potassium 3.6 mEq/L (3.5-5.1); Protein, Total 6.9 g/dL (6.4-8.2)
[2024-09-29 10:51] LABS: SARS-CoV-2 Antigen CONTROL BLUE LINE VIS/BG OK; SARS-CoV-2 Antigen Rapid Res Negative (Negative)
[2024-09-29 11:11] LABS: Anisocytosis 1+; Blood Morphology Comment NOTED (NOT SEEN); Microcytosis 1+; Ovalocytes 1+; Platelet Estimate ADEQ; White Blood Cell Scan OK (OK)
--- NOTE | 2024-09-29 11:18 | RAD REPORT ---
EXAMINATION: CT ABDOMEN AND PELVIS WITH CONTRAST CLINICAL INDICATION: Abdominal pain TECHNIQUE: CT abdomen and pelvis was performed, after the administration of 100 cc Isovue-300.. Sagit rachel and coronal reconstructions were obtained. One or more of the following dose reduction techniques were used: Automated exposure control, adjustment of the mA and kV according to patient si ze, and iterative reconstruction. Unless otherwise specified, incidental findings do not require dedicated imaging follow-up. [id number]. Oral contrast was not given which limits evaluation of bowel and appendix. COMPARISON: .May 2024 FINDINGS: Liver, spleen, adrenals and kidneys appear unremarkable. Pancreatic atrophy. No evidence of diverticulitis.. Development of a mild compression deformity L3 vertebral body having the appearance of a subacute fra cture. There is approximately 20% compression of the vertebral body. Small hiatal hernia : IMPRESSION: Mild subacute compression fracture L3 vertebral body
[2024-09-29 11:46] LABS: Specific Gravity > 1.030 (1.005-1.030); Sqamous Epithelial None Seen /HPF (None Seen); Urine Bacteria None Seen /HPF (<20); Urine Bilirubin NEGATIVE (Negative); Urine Blood Trace (Negative); Urine Clarity Clear (Clear); Urine Color Colorless (Yellow); Urine Culture Reflex Order NOT NEEDED; Urine Glucose NEGATIVE (Negative); Urine Ketones NEGATIVE (Negative); Urine Microscopic Reflex YN ORDER UMIC; Urine Mucus Slight /HPF (None Seen); Urine Nitrite NEGATIVE (Negative); Urine Protein NEGATIVE (Negative); Urine RBC <5 /HPF (None Seen); Urine Urobilinogen Normal (Normal); Urine WBC None Seen /HPF (<5); Urine Yeast (Budding) Trace /HPF (None Seen); Urine pH 7.5 (5.0-7.0)
--- NOTE | 2024-09-29 11:51 | ER ---
Nurse's Notes [facility] Name: Ramesh Mesa Jr Age: 88 yrs Sex: Male : 1935 Arrival Date: 09/29/2024 Time: 09:28 Bed 2 Private MD: Diagnosis: Noninfective gastroenteritis and colitis, unspecified Presentation: 09/29 10:03 Chief complaint: Patient's son or daughter states: patient has been having vomiting and ap3 diarrhea for 3 days. it is reported the rest of the family is not ill. Coronavirus screen: At this time, the client does not indicate any symptoms associated with coronavirus-19. Ebola Screen: No symptoms or risks identified at this time. Initial Sepsis Screen: Does the patient meet any 2 criteria? No. Patient's initial sepsis screen is negative. Does the patient have a suspected source of infection? No. Patient's initial sepsis screen is negative. Risk Assessment: Do you want to hurt yourself or someone else? Patient reports no desire to harm self or others. Onset of symptoms was September 26, 2024. 10:03 Method Of Arrival: Wheelchair ap3 10:03 Acuity: EDIN 2 ap3 Triage Assessment: 10:09 General: Appears ill, Behavior is calm, cooperative, appropriate for age. Pain:. Neuro: ap3 Level of Consciousness is awake, alert, obeys commands, Oriented to person, place, time, situation, Appropriate for age Speech is normal. Cardiovascular: Patient's skin is warm and dry. Respiratory: Airway is patent Respiratory effort is even, unlabored, Respiratory pattern is regular, symmetrical. GI: Reports diarrhea, nausea, vomiting. Historical: - Allergies: 10:08 No Known Allergies; ap3 - PMHx: 10:08 Dementia; depressive disorder; Hypertensive disorder; Migraines; neuropathy; right hand ap3 tremors; - Immunization history:: Client reports receiving the 2nd dose of the Covid vaccine, Flu vaccine is up to date. - Infectious Disease History:: Denies. - Social history:: Smoking status: Patient denies any tobacco usage or history of. Screenin:10 [facility] ED Fall Risk Assessment (Adult) History of falling in the last 3 months, ap3 including since admission Yes- fall prone (multiple falls) (3 pts) Confusion or Disorientation Yes (5 pts) Intoxicated or Sedated No (0 pts) Impaired Gait Yes (1 pt) Mobility Assist Device Used Yes (1 pt) Altered Elimination No (0 pt) Score/Fall Risk Level 3 or more points = High Risk Oriented to surroundings, Maintained a safe environment, Educated pt \T\ family on fall prevention, incl call for assistance when getting out of bed, Assessed \T\ reinforced patient's understanding of fall precautions, Hourly rounding (assess needs \T\ fall precautionary measures) done, Used ambulatory aids as needed (educated on \T\ assisted with), Used gait belt as appropriate Implemented a Fall Risk Plan of Care, Apply high fall risk patient identification: yellow non skid footwear/ fall signage, Remained w/in arm's length of patient and in sight while toileting, Offered frequent toileting (1:1 observation), Remained with patient while ambulating, Utilized family, sitter, or virtual rib cutter as indicated. Abuse screen: Denies threats or abuse. Nutritional screening: No deficits noted. Tuberculosis screening: No symptoms or risk factors identified. Vital Signs: 10:03 BP 146 / 82; Pulse 49; Resp 19; Temp 97.7(O); Pulse Ox 95% on R/A; Weight 90.72 kg; ap3 Height 5 ft. 11 in. ; 11:00 BP 161 / 82; Pulse 52; Pulse Ox 96% on R/A; ap3 12:04 BP 178 / 87; Pulse 50; Resp 16; Temp 97.5; Pulse Ox 97% on R/A; ap3 10:03 Body Mass Index 27.89 (90.72 kg, 180.34 cm) ap3 ED Course: 09:32 Patient arrived in ED. al6 09:33 Arya Melton MD is Attending Physician. ec2 10:02 Manoj Pena, JACOB is Primary Nurse. bp 10:08 Triage completed. ap3 10:10 Arm band placed on right wrist. ap3 10:25 SARS RAPID Sent. kb4 10:25 Influenza Screen (a \T\ B) Sent. kb4 10:25 CBC with Diff Sent. kb4 10:25 CMP Sent. kb4 10:25 Lipase Sent. kb4 10:26 Initial lab(s) drawn, by fl, sent to lab. Inserted saline lock: 20 gauge in right kb4 wrist, using aseptic technique. Blood collected. Flushed with 10 mL NS. 11:00 CT Abd/Pelvis - IV Contrast Only In Process Unspecified. EDMS 12:03 Patient has correct armband on for positive identification. Bed in low position. Call ap3 light in reach. Side rails up X2. Adult w/ patient. Provided Education on: fall risk education. 12:03 No provider procedures requiring assistance completed. IV discontinued, intact, ap3 bleeding controlled, No redness/swelling at site. Pressure dressing applied. Administered Medications: 10:44 Drug: Famotidine IVP 20 mg IVP once; dilute with 10 mL 0.9% NaCl; give over 2 minutes bp Route: IVP; Site: right forearm; 12:02 Follow up: Response: No adverse reaction ap3 10:44 Drug: Ondansetron IVP 4 mg IVP once; over 2 minutes Route: IVP; Site: right forearm; bp 12:02 Follow up: Response: No adverse reaction ap3 10:44 Drug: NS 0.9% IV 1000 ml IV at 1 bolus Per protocol; to be given as a bolus over 60 bp minutes Route: IV; Rate: 1 bolus; Site: left forearm; 12:02 Follow up: IV Status: Completed infusion ap3 Medication: 12:03 VIS not applicable for this client. ap3 Outcome: 11:51 Discharge ordered by . ec2 12:03 Discharged to home via wheelchair, with family, ap3 12:03 Condition: good 12:03 Discharge instructions given to patient, family, Instructed on discharge instructions, follow up and referral plans. medication usage, Demonstrated understanding of instructions, follow-up care, medications, Prescriptions given X 2, 12:05 Patient left the ED. ap3 Signatures: Dispatcher [employer] EDMS Manoj Pena, RN RN bp Chata Simon RN RN ap3 Arya Melton MD MD ec2 Danielle Galvez al Marilia Pace kb4
--- NOTE | 2024-09-29 11:51 | EDPHYS ---
Physician Documentation [facility] Name: Ramesh Mesa Jr Age: 88 yrs Sex: Male : 1935 Arrival Date: 09/29/2024 Time: 09:28 Bed 2 Private MD: ED Physician Arya Melton HPI: 09/29 10:12 This 88 yrs old Male presents to ER via Wheelchair with complaints of ec2 Vomiting/Diarrhea. 10:12 Patient arrives today for evaluation of nausea, vomiting, diarrhea. Patient reports has ec2 been having the symptoms for approximately 3 days. Has been taking some [id number] medications for nausea without improvement in symptoms. No fevers or chills, no sick contacts, no cough or cold symptoms, no shortness of breath, no abdominal pain.. Historical: - Allergies: 10:08 No Known Allergies; ap3 - PMHx: 10:08 Dementia; depressive disorder; Hypertensive disorder; Migraines; neuropathy; right hand ap3 tremors; - Immunization history:: Client reports receiving the 2nd dose of the Covid vaccine, Flu vaccine is up to date. - Infectious Disease History:: Denies. - Social history:: Smoking status: Patient denies any tobacco usage or history of. ROS: 10:12 Constitutional: as per hpi ec2 Exam: 10:12 Constitutional: GEN: NAD Head: atraumatic Eyes: EOMI Ears: External ears are ec2 normal. CV: regular rate LUNGS: no respiratory distress ABD: non-distended, soft, nontender, not guarding, not rigid SKIN: no evidence of rashes MSK: no evidence of trauma Vital Signs: 10:03 BP 146 / 82; Pulse 49; Resp 19; Temp 97.7(O); Pulse Ox 95% on R/A; Weight 90.72 kg; ap3 Height 5 ft. 11 in. ; 11:00 BP 161 / 82; Pulse 52; Pulse Ox 96% on R/A; ap3 12:04 BP 178 / 87; Pulse 50; Resp 16; Temp 97.5; Pulse Ox 97% on R/A; ap3 10:03 Body Mass Index 27.89 (90.72 kg, 180.34 cm) ap3 MDM: 09:35 Medical Screening Exam initiated ec2 10:12 Data reviewed: vital signs, nurses notes. ED course: Patient arrives today for ec2 evaluation of nausea, vomiting, diarrhea. Examination reveals hemodynamically stable individuals otherwise in no acute distress. Will obtain lab work, urine studies, CT imaging. Differential includes colitis, urinary tract infection, electrolyte disturbances. 11:50 ED course: Labs reassuring, CT imaging without any signs of infections or obstruction. ec2 Will discharge home. I offered inpatient hospitalization for symptomatic manage however patient and family declined. Return precautions given. Will prescribe Zofran as needed for nausea.. 09/29 09:57 Order name: CBC with Diff; Complete Time: 11:46 ec2 09/29 09:57 Order name: CMP; Complete Time: 10:56 ec2 09/29 09:57 Order name: Lipase; Complete Time: 10:56 ec2 09/29 09:57 Order name: Urinalysis w/ reflexes; Complete Time: 11:46 ec2 09/29 09:57 Order name: Influenza Screen (a \T\ B); Complete Time: 11:20 ec2 09/29 09:57 Order name: SARS RAPID; Complete Time: 10:56 ec2 09/29 10:37 Order name: CBC Smear Scan; Complete Time: 11:46 EDMS 09/29 09:57 Order name: CT Abd/Pelvis - IV Contrast Only; Complete Time: 11:20 ec2 09/29 09:57 Order name: IV Saline Lock; Complete Time: 10:25 ec2 09/29 09:57 Order name: Labs collected and sent; Complete Time: 10:25 ec2 Administered Medications: 10:44 Drug: Famotidine IVP 20 mg IVP once; dilute with 10 mL 0.9% NaCl; give over 2 minutes bp Route: IVP; Site: right forearm; 12:02 Follow up: Response: No adverse reaction ap3 10:44 Drug: Ondansetron IVP 4 mg IVP once; over 2 minutes Route: IVP; Site: right forearm; bp 12:02 Follow up: Response: No adverse reaction ap3 10:44 Drug: NS 0.9% IV 1000 ml IV at 1 bolus Per protocol; to be given as a bolus over 60 bp minutes Route: IV; Rate: 1 bolus; Site: left forearm; 12:02 Follow up: IV Status: Completed infusion ap3 Disposition Summary: 09/29/24 11:51 Discharge Ordered Notes: Location: Home ec2 Condition: Stable ec2 Diagnosis - Noninfective gastroenteritis and colitis, unspecified ec2 Followup: ec2 - With: Private Physician - When: - Reason: Re-evaluation by your physician Discharge Instructions: - Discharge Summary Sheet ec2 - Diarrhea, Adult ec2 Forms: - Medication Reconciliation Form ec2 - Antibiotic Education ec2 - Prescription Opioid Use ec2 - Patient Portal Instructions ec2 - Leadership Thank You Letter ec2 Prescriptions: - Zofran 4 mg Oral Tablet - take 1 tablet ORAL route every 12 hours As needed; 20 tablet; Refills: 0, ec2 Product Selection Permitted - dicyclomine 10 mg Oral capsule - take 1 capsule ORAL route 3 times per day; 15 capsule; Refills: 0, Product ec2 Selection Permitted Signatures: Dispatcher [employer] Manoj Quiles, RN RN bp Chata Simon RN RN ap3 Arya Melton MD MD ec2 Corrections: (The following items were deleted from the chart) 09:58 09:58 CBC+H.LAB.BRZ ordered. EDMS EDMS 09:58 09:58 COMPREHENSIVE METABOLIC PANEL+C.LAB.BRZ ordered. EDMS EDMS 09:58 09:58 LIPASE+C.LAB.BRZ ordered. EDMS EDMS 09:58 09:58 Urinalysis+U.LAB.BRZ ordered. EDMS EDMS 09:58 09:58 Influenza Screen (A \T\ B)+BA.LAB.BRZ ordered. EDMS EDMS 09:58 09:58 SARS-COV-2 Antigen Rapid+I.LAB.BRZ ordered. EDMS EDMS 09:58 09:58 Abdomen Pelvis W Con+CT.RAD.BRZ ordered. EDMS EDMS
[2024-09-29 12:28] VITALS: BP 178/87; TEMP 97.5; O2SAT 97
== END 2024-09-29 12:05 | disposition home or self-care (01) ==
LOC: ER 09:28
DX: K52.9 Noninfective gastroenteritis and colitis, unspecified (principal); I10 Essential (primary) hypertension; F03.90 Unspecified dementia, unspecified severity, without behavioral disturbance, psychotic disturbance, mood disturbance, and anxiety; Z11.52 Encounter for screening for COVID-19
CPT/HCPCS: 36415; 74177; 80053; 81001; 83690; 85025; 87804; 87811; 96361; 96374; 96375; 99284; J2405; J7030; Q9967

== ENCOUNTER 2024-09-30 11:06 | Inpatient (IN) | payer OTHER ==
[2024-09-30] MEDS ORDERED: ONDANSETRON 4 MG/2 ML VIAL ONE ×2 (11:47→16:30)
[2024-09-30] MEDS ORDERED: FAMOTIDINE 20 MG/2 ML VIAL IV ONE (11:47)
[2024-09-30] MEDS ORDERED: NA CHLORIDE 0.9% 1,000 ML ONE (11:47)
[2024-09-30 12:11] LABS: Absolute Basophils 0.1 K/uL (0-0.5); Absolute Lymphocytes (CBC) 0.5 K/uL (0.7-4.9); Absolute Monocytes 0.5 K/uL (0.1-1.3); Absolute Neutrophil 5.2 K/uL (1.8-8.0); Basophils % 1.1 % (0-1.3); Eosinophils % 0.4 % (0-4.4); Hematocrit 38.5 % (39.6-49.0); Hemoglobin 12.7 g/dL (13.6-17.9); Lymphocytes % 7.9 % (15.3-44.8); MCH 31.1 pg (27.0-35.0); MCV 94.5 fL (80-100); MPV 8.1 fL (7.6-11.3); Monocytes % 8.2 % (3.3-12.3); Neutrophils % 82.4 % (41.7-73.7); Nucleated Red Blood Cells % 0.3 % (0-0); Platelets 259 thou/uL (152-406); RBC Red Blood Cell Count 4.07 M/uL (4.33-5.43); Red Cell Distribution Width 20.1 % (12.1-15.2)
--- NOTE | 2024-09-30 12:17 | RAD REPORT ---
EXAMINATION: CT Abdomen Pelvis Wo Contrast CLINICAL INDICATION: Male, 88 years old. ABD PAIN TECHNIQUE: CT abdomen and pelvis was performed, without IV contrast, as per department protocol. Axia l, sagittal and coronal reconstructions were obtained. One or more of the following dose reduction techniques were used: Automated exposure control, adjustment of the mA and kV according to the patien t size, and iterative reconstruction. Unless otherwise specified, incidental findings do not require dedicated imaging follow-up. COMPARISON: 09/29/2024 FINDINGS: The lack of intravenous contrast limits the sensitivity of this exam for evaluation of solid visceral organs, vascular structures, and retroperitoneum. LOWER CHEST: Trace bilateral layering effusions. LIVER: Normal in size and contour. No focal lesion. BILIARY SYSTEM: No suspicious abnormalities. SPLEEN: Normal size. No focal lesion. PANCREAS: No mass, ductal dilation, or halle-pancreatic fluid. ADRENALS: Normal; no mass. KIDNEYS AND URETERS: 2 mm left upper pole nonobstructing calculus. Normal size and contour. No hydron ephrosis. URINARY BLADDER: Normal contour. GASTROINTESTINAL TRACT: Small sliding hiatal hernia. No evidence of bowel obstruction, significant fr ee fluid, free air or abscess. APPENDIX: Normal appendix. LYMPH NODES: No lymphadenopathy. MUSCULOSKELETAL: Superior endplate compression deformities at L3, and to lesser extent at L4, stable acute or suspicious osseous abnormality. ADDITIONAL FINDINGS: Small fat-containing hernia along the left anterior abdominal wall muscles, sugg esting a spigelian hernia, stable. IMPRESSION: Trace layering bilateral pleural effusions. Left upper renal Pole 2 mm nonobstructing calculus, probably stable. No other acute or concerning abnormalities in the abdomen or pelvis, with evaluation limited by lack of IV contrast. Incidental findings as above.
[2024-09-30 12:20] LABS: PT Prothrombin Time 12.1 SECONDS (9.4-12.5); Protime INR 1.08
[2024-09-30 12:30] LABS: Albumin 4.1 g/dL (3.4-5.0); Albumin/Globulin Ratio 1.4 (1.1-1.8); Anion Gap 9.1 mEq/L (5.0-15.0); Bilirubin Direct 0.4 mg/dL (0-0.2); Bilirubin Indirect, Calculated 1.6 mg/dL (0.2-0.8); Potassium 3.1 mEq/L (3.5-5.1); Protein, Total 7.1 g/dL (6.4-8.2); Troponin High Sensitivity 15.3 pg/mL (<58.9)
--- NOTE | 2024-09-30 13:07 | RAD REPORT ---
Procedure: Chest Single View HISTORY: Abdominal pain COMPARISON: July 2024 FINDINGS: The lungs appear clear of acute infiltrate. No significant pleural effusion noted. The heart is normal size. IMPRESSION: No acute abnormality is displayed.
[2024-09-30 13:09] LABS: Anisocytosis 1+; Blood Morphology Comment NOTED (NOT SEEN); Ovalocytes 1+; Platelet Estimate ADEQ; White Blood Cell Scan OK (OK)
--- NOTE | 2024-09-30 13:53 | RAD REPORT ---
EXAM: Right upper quadrant ultrasound. CLINICAL HISTORY: Abdominal pain COMPARISON: None FINDINGS: A gallstone is not seen. Gallbladder wall not thickened. Biliary tree normal caliber IMPRESSION: No significant abnormalities displayed
[2024-09-30 14:39] LABS: Specific Gravity 1.017 (1.005-1.030); Sqamous Epithelial None Seen /HPF (None Seen); Urine Bacteria None Seen /HPF (<20); Urine Bilirubin NEGATIVE (Negative); Urine Blood Negative (Negative); Urine Clarity Clear (Clear); Urine Color Light-Yellow (Yellow); Urine Culture Reflex Order NOT NEEDED; Urine Glucose NEGATIVE (Negative); Urine Ketones 1+ (Negative); Urine Microscopic Reflex YN ORDER UMIC; Urine Mucus Slight /HPF (None Seen); Urine Nitrite NEGATIVE (Negative); Urine Protein NEGATIVE (Negative); Urine RBC <5 /HPF (None Seen); Urine Urobilinogen Normal (Normal); Urine WBC <5 /HPF (<5); Urine pH 6.5 (5.0-7.0)
--- NOTE | 2024-09-30 15:11 | ER ---
Nurse's Notes [facility] Name: Ramesh Mesa Jr Age: 88 yrs Sex: Male : 1935 Arrival Date: 09/30/2024 Time: 11:06 Bed 7 Private MD: Diagnosis: Vomiting;Weakness;Hypokalemia;Pleural effusion in other conditions classified elsewhere Presentation: 09/30 11:23 Chief complaint: Patient's son or daughter states: he was seen here yesterday for iw colitis/gastritis, is still vomiting and having abd pain. Coronavirus screen: At this time, the client does not indicate any symptoms associated with coronavirus-19. Ebola Screen: No symptoms or risks identified at this time. Initial Sepsis Screen:. Risk Assessment: Do you want to hurt yourself or someone else? Patient reports no desire to harm self or others. 11:23 Method Of Arrival: Wheelchair iw 11:23 Acuity: EDIN 3 iw 12:07 Initial Sepsis Screen: Does the patient meet any 2 criteria? No. Patient's initial ph sepsis screen is negative. Does the patient have a suspected source of infection? No. Patient's initial sepsis screen is negative. Onset of symptoms was September 29, 2024. Historical: - Allergies: 11:36 No Known Allergies; ph - Home Meds: 11:36 amitriptyline 10 mg Oral tablet [Active]; escitalopram oxalate 10 mg Oral tablet daily ph [Active]; Exelon Oral 4.6 mg daily [Active]; gabapentin 100 mg Oral capsule 2 times per day [Active]; hydrochlorothiazide 12.5 mg Oral tablet daily [Active]; Iron CR Oral daily [Active]; losartan 25 mg Oral tablet daily [Active]; meloxicam 15 mg Oral tablet daily [Active]; memantine 10 mg Oral tablet 2 times per day [Active]; multivitamin Oral tablet daily [Active]; propranolol 10 mg Oral tablet 2 times per day [Active]; quetiapine 25 mg Oral tablet every day at bedtime [Active]; Topamax 25 mg Oral tablet 2 times per day [Active]; Zyrtec 10 mg Oral tablet daily [Active]; - PMHx: 11:36 Dementia; depressive disorder; Hypertensive disorder; Migraines; neuropathy; right hand ph tremors; - Immunization history:: Adult Immunizations unknown. - Infectious Disease History:: Denies. - Social history:: Smoking status: unknown. Screenin:38 [facility] ED Fall Risk Assessment (Adult) History of falling in the last 3 months, ph including since admission No falls in past 3 months (0 pts) Confusion or Disorientation Yes (5 pts) Intoxicated or Sedated No (0 pts) Impaired Gait No (0 pts) Mobility Assist Device Used Yes (1 pt) Altered Elimination No (0 pt) Score/Fall Risk Level 3 or more points = High Risk Oriented to surroundings, Maintained a safe environment, Used ambulatory aids as needed (educated on \T\ assisted with). Abuse screen: Denies threats or abuse. Denies injuries from another. Nutritional screening: No deficits noted. Tuberculosis screening: No symptoms or risk factors identified. Assessment: 12:18 General: Appears in no apparent distress. comfortable, well groomed, Behavior is calm, ph cooperative. Pain: Complains of pain in abdomen. Neuro: Level of Consciousness is awake, alert, obeys commands, Oriented to person, place. Cardiovascular: Capillary refill < 3 seconds in bilateral fingers Patient's skin is warm and dry. Respiratory: Airway is patent Respiratory effort is even, unlabored, Respiratory pattern is regular, symmetrical. GI: Abdomen is non-distended, Parent/caregiver reports the patient having nausea, vomiting. Derm: Skin is pink, warm \T\ dry. 15:30 Reassessment: Patient appears in no apparent distress at this time. Patient and/or ph family updated on plan of care and expected duration. Pain level reassessed. Pt reporting nausea, actively vomiting bile. Vital Signs: 12:07 BP 147 / 105; Pulse 57; Resp 18; Temp 97.5; Pulse Ox 97% on R/A; ph 13:01 BP 166 / 77; Pulse 58; Resp 18; Pulse Ox 97% on R/A; ph 14:21 BP 133 / 55; Pulse 57; Resp 18; Pulse Ox 97% on R/A; ph 15:00 BP 165 / 78; Pulse 59; Resp 18; Pulse Ox 99% on R/A; ph 16:00 BP 146 / 68; Pulse 58; Resp 18; Pulse Ox 98% on R/A; ph 17:00 BP 152 / 70; Pulse 61; Resp 18; Temp 97.8; Pulse Ox 99% on R/A; ph ED Course: 11:09 Patient arrived in ED. sj2 11:10 Nemesio Topete MD is Attending Physician. che 11:24 Triage completed. iw 11:32 CT Abd/Pelvis - Without Contrast In Process Unspecified. EDMS 11:36 Nataliia Meneses, RN is Primary Nurse. ph 11:37 Arm band placed on Patient placed in an exam room, on a stretcher. ph 11:39 Patient has correct armband on for positive identification. Bed in low position. Call ph light in reach. Side rails up X 1. Pulse ox on. NIBP on. Door closed. Noise minimized. Warm blanket given. 12:09 Initial lab(s) drawn, by ak, sent to lab. Inserted saline lock: 22 gauge in left wrist, kb4 using aseptic technique. Blood collected. Flushed with 10 mL NS. 12:11 Missed attempt(s): 20 gauge Bleeding controlled, band aid applied, catheter tip intact. kb4 12:33 EKG done, by ED staff, reviewed by Nemesio Topete MD. kb4 12:50 XRAY Chest (1 view) In Process Unspecified. EDMS 13:47 US Abdomen Limited In Process Unspecified. EDMS 15:10 Aleksandra Armando MD is Hospitalizing Provider. che 18:08 No provider procedures requiring assistance completed. Patient admitted, IV remains in ph place. Administered Medications: 12:06 Drug: NS 0.9% IV 1000 ml IV at 1 bolus Per protocol; to be given as a bolus over 60 ph minutes Route: IV; Rate: 1 bolus; Site: left hand; 13:10 Follow up: Response: No adverse reaction; IV Status: Completed infusion; IV Intake: ph 1000ml 12:06 Drug: Ondansetron IVP 4 mg IVP once; over 2 minutes Route: IVP; Site: left hand; ph 12:30 Follow up: Response: No adverse reaction ph 12:07 Drug: Famotidine IVP 20 mg IVP once; dilute with 10 mL 0.9% NaCl; give over 2 minutes ph Route: IVP; Site: left hand; 12:30 Follow up: Response: No adverse reaction ph 16:35 Drug: NS 0.9% with KCl IV 20 mEq/L 1000 ml IV at 125 ml/hr continuous Route: IV; Rate: ph 125 ml/hr; Site: right antecubital; 17:00 Follow up: Response: No adverse reaction; IV Status: Infusion continued upon admission ph 16:35 Drug: Ondansetron IVP 4 mg IVP once; over 2 minutes Route: IVP; Site: left hand; ph 17:00 Follow up: Response: No adverse reaction ph Medication: 11:40 VIS not applicable for this client. ph Intake: 13:10 IV: 1000ml; Total: 1000ml. ph Outcome: 15:11 Decision to Hospitalize by Provider. [facility] 18:08 Condition: stable ph 18:41 Patient left the ED. ph Signatures: Dispatcher [employer] EDKY Nemesio Topete MD MD cha Williams, Irene, RN RN Nataliia Meneses RN RN Javi Arana [facility] Marilia Pace kb4 Corrections: (The following items were deleted from the chart) 12:11 12:09 Missed attempt(s): kb4 kb4
--- NOTE | 2024-09-30 15:11 | EDPHYS ---
Physician Documentation [facility] Name: Ramesh Mesa Jr Age: 88 yrs Sex: Male : 1935 Arrival Date: 09/30/2024 Time: 11:06 Bed 7 Private MD: BLAS Physician Nemesio Topete HPI: 09/30 15:12 This 88 yrs old Male presents to ER via Wheelchair with complaints of che Vomiting. 15:12 The patient presents to the emergency department with nausea, vomiting, abdominal pain, che of the right upper quadrant, left upper quadrant, right lower quadrant and left lower quadrant. Onset: The symptoms/episode began/occurred 3 day(s) ago. Possible causes: unknown. The symptoms are aggravated by nothing. The symptoms are alleviated by remaining still. Associated signs and symptoms: Pertinent positives: abdominal pain, nausea, vomiting. Severity of symptoms: At their worst the symptoms were moderate in the emergency department the symptoms are unchanged. The patient has experienced similar episodes in the past, several times. Historical: - Allergies: 11:36 No Known Allergies; ph - Home Meds: 11:36 amitriptyline 10 mg Oral tablet [Active]; escitalopram oxalate 10 mg Oral tablet daily ph [Active]; Exelon Oral 4.6 mg daily [Active]; gabapentin 100 mg Oral capsule 2 times per day [Active]; hydrochlorothiazide 12.5 mg Oral tablet daily [Active]; Iron CR Oral daily [Active]; losartan 25 mg Oral tablet daily [Active]; meloxicam 15 mg Oral tablet daily [Active]; memantine 10 mg Oral tablet 2 times per day [Active]; multivitamin Oral tablet daily [Active]; propranolol 10 mg Oral tablet 2 times per day [Active]; quetiapine 25 mg Oral tablet every day at bedtime [Active]; Topamax 25 mg Oral tablet 2 times per day [Active]; Zyrtec 10 mg Oral tablet daily [Active]; - PMHx: 11:36 Dementia; depressive disorder; Hypertensive disorder; Migraines; neuropathy; right hand ph tremors; - Immunization history:: Adult Immunizations unknown. - Infectious Disease History:: Denies. - Social history:: Smoking status: unknown. ROS: 15:12 Constitutional: Negative for fever, chills, and weight loss, Eyes: Negative for injury, che pain, redness, and discharge, ENT: Negative for injury, pain, and discharge, Neck: Negative for injury, pain, and swelling, Cardiovascular: Negative for chest pain, palpitations, and edema, Respiratory: Negative for shortness of breath, cough, wheezing, and pleuritic chest pain, Back: Negative for injury and pain, : Negative for injury, bleeding, discharge, and swelling, MS/Extremity: Negative for injury and deformity, Skin: Negative for injury, rash, and discoloration, Neuro: Negative for headache, weakness, numbness, tingling, and seizure, Psych: Negative for depression, anxiety, suicide ideation, homicidal ideation, and hallucinations, Allergy/Immunology: Negative for hives, rash, and allergies, Endocrine: Negative for neck swelling, polydipsia, polyuria, polyphagia, and marked weight changes, Hematologic/Lymphatic: Negative for swollen nodes, abnormal bleeding, and unusual bruising, 15:12 Abdomen/GI: Positive for abdominal pain, nausea and vomiting, abdominal cramps, abdominal distension, Exam: 15:12 Constitutional: This is a well developed, well nourished patient who is awake, alert, che and in no acute distress. Head/Face: Normocephalic, atraumatic. Eyes: Pupils equal round and reactive to light, extra-ocular motions intact. Lids and lashes normal. Conjunctiva and sclera are non-icteric and not injected. Cornea within normal limits. Periorbital areas with no swelling, redness, or edema. ENT: Nares patent. No nasal discharge, no septal abnormalities noted. Tympanic membranes are normal and external auditory canals are clear. Oropharynx with no redness, swelling, or masses, exudates, or evidence of obstruction, uvula midline. Mucous membranes moist. Neck: Trachea midline, no thyromegaly or masses palpated, and no cervical lymphadenopathy. Supple, full range of motion without nuchal rigidity, or vertebral point tenderness. No Meningismus. Chest/axilla: Normal chest wall appearance and motion. Nontender with no deformity. No lesions are appreciated. Cardiovascular: Regular rate and rhythm with a normal S1 and S2. No gallops, murmurs, or rubs. Normal PMI, no JVD. No pulse deficits. Respiratory: Lungs have equal breath sounds bilaterally, clear to auscultation and percussion. No rales, rhonchi or wheezes noted. No increased work of breathing, no retractions or nasal flaring. Back: No spinal tenderness. No costovertebral tenderness. Full range of motion. Male : Normal genitalia with no discharge or lesions. Skin: Warm, dry with normal turgor. Normal color with no rashes, no lesions, and no evidence of cellulitis. MS/ Extremity: Pulses equal, no cyanosis. Neurovascular intact. Full, normal range of motion., bilateral aka Neuro: Awake and alert, GCS 15, oriented to person, place, time, and situation. Cranial nerves II-XII grossly intact. Motor strength 5/5 in all extremities. Sensory grossly intact. Cerebellar exam normal. Normal gait. Psych: Awake, alert, with orientation to person, place and time. Behavior, mood, and affect are within normal limits. 15:12 ECG was reviewed by the Attending Physician. 16:16 ECG was reviewed by the Attending Physician. [facility] Vital Signs: 12:07 BP 147 / 105; Pulse 57; Resp 18; Temp 97.5; Pulse Ox 97% on R/A; ph 13:01 BP 166 / 77; Pulse 58; Resp 18; Pulse Ox 97% on R/A; ph 14:21 BP 133 / 55; Pulse 57; Resp 18; Pulse Ox 97% on R/A; ph 15:00 BP 165 / 78; Pulse 59; Resp 18; Pulse Ox 99% on R/A; ph 16:00 BP 146 / 68; Pulse 58; Resp 18; Pulse Ox 98% on R/A; ph 17:00 BP 152 / 70; Pulse 61; Resp 18; Temp 97.8; Pulse Ox 99% on R/A; ph MDM: 11:10 Medical Screening Exam initiated [facility] 15:14 Differential diagnosis: Nonspecific abd pain, gastritis, cholecystitis, pancreatitis, che appendicitis, diverticulitis, viral gastroenteritis, gastroenteritis. Data reviewed: vital signs, nurses notes, lab test result(s), EKG, radiologic studies, plain films. I considered the following discharge prescriptions or medication management in the emergency department Medications were administered in the Emergency Department. See MAR. Independent interpretation of the following test(s) in the Emergency Department EKG: See my EKG interpretation above. Test considered but Not performed: MRI: NO MRCP. Care significantly affected by the following chronic conditions: Hypertension, DEMENTIA, MIGRAINES, DEPRESSION. 09/30 11:11 Order name: Basic Metabolic Panel; Complete Time: 13:05 [facility] 09/30 11:11 Order name: CBC with Diff; Complete Time: 15:04 [facility] 09/30 11:11 Order name: LFT's; Complete Time: 13:05 [facility] 09/30 11:11 Order name: Magnesium; Complete Time: 13:05 [facility] 09/30 11:11 Order name: NT PRO-BNP; Complete Time: 13:05 [facility] 09/30 11:11 Order name: PT-INR; Complete Time: 13:05 [facility] 09/30 11:11 Order name: Troponin HS; Complete Time: 13:05 [facility] 09/30 11:11 Order name: Lipase; Complete Time: 13:05 [facility] 09/30 11:11 Order name: Urinalysis w/ reflexes; Complete Time: 15:04 [facility] 09/30 13:10 Order name: CBC Smear Scan; Complete Time: 15:04 EDMS 09/30 16:16 Order name: Potassium EDMS 09/30 16:16 Order name: Basic Metabolic Panel EDMS 09/30 16:16 Order name: Basic Metabolic Panel EDMS 09/30 16:16 Order name: CBC with Automated Diff EDMS 09/30 16:16 Order name: CBC with Automated Diff EDMS 09/30 16:16 Order name: Lipase EDMS 09/30 16:16 Order name: Lipase EDMS 09/30 16:16 Order name: Liver (Hepatic) Function EDMS 09/30 16:16 Order name: Liver (Hepatic) Function EDMS 09/30 11:11 Order name: XRAY Chest (1 view); Complete Time: 15:04 [facility] 09/30 11:11 Order name: CT Abd/Pelvis - Without Contrast; Complete Time: 13:05 che 09/30 13:05 Order name: US Abdomen Limited; Complete Time: 15:04 [facility] 09/30 11:11 Order name: EKG; Complete Time: 11:14 [facility] 09/30 16:11 Order name: CONS Physician Consult EDAL 09/30 11:11 Order name: Cardiac monitoring; Complete Time: 18:08 [facility] 09/30 11:11 Order name: EKG - Nurse/Tech; Complete Time: 12:33 [facility] 09/30 11:11 Order name: IV Saline Lock; Complete Time: 12:06 [facility] 09/30 11:11 Order name: Labs collected and sent; Complete Time: 12:06 che 09/30 11:11 Order name: O2 Per Protocol; Complete Time: :40 che 09/30 11:11 Order name: O2 Sat Monitoring; Complete Time: 11:40 che EC:16 Rate is 52 beats/min. Rhythm is regular. QRS Leakey is Normal. MS interval is normal. QRS che interval is normal. QT interval is prolonged at 483 msec. No Q waves. T waves are Normal. No ST changes noted. Clinical impression: Sinus bradycardia and No evidence of ischemia. Interpreted by me. Reviewed by me. Administered Medications: 12:06 Drug: NS 0.9% IV 1000 ml IV at 1 bolus Per protocol; to be given as a bolus over 60 ph minutes Route: IV; Rate: 1 bolus; Site: left hand; 13:10 Follow up: Response: No adverse reaction; IV Status: Completed infusion; IV Intake: ph 1000ml 12:06 Drug: Ondansetron IVP 4 mg IVP once; over 2 minutes Route: IVP; Site: left hand; ph 12:30 Follow up: Response: No adverse reaction ph 12:07 Drug: Famotidine IVP 20 mg IVP once; dilute with 10 mL 0.9% NaCl; give over 2 minutes ph Route: IVP; Site: left hand; 12:30 Follow up: Response: No adverse reaction ph 16:35 Drug: NS 0.9% with KCl IV 20 mEq/L 1000 ml IV at 125 ml/hr continuous Route: IV; Rate: ph 125 ml/hr; Site: right antecubital; 17:00 Follow up: Response: No adverse reaction; IV Status: Infusion continued upon admission ph 16:35 Drug: Ondansetron IVP 4 mg IVP once; over 2 minutes Route: IVP; Site: left hand; ph 17:00 Follow up: Response: No adverse reaction ph Disposition Summary: 09/30/24 15:11 Hospitalization Ordered Notes: Hospitalization Status: Inpatient Admission che Provider: Aleksandra Armando cha Location: Telemetry/[facility] (Inpatient) che Condition: Fair che Problem: new che Symptoms: have improved che Bed/Room Type: Standard che Room Assignment: 202(09/30/24 16:34) kb3 Diagnosis - Vomiting che - Weakness che - Hypokalemia che - Pleural effusion in other conditions classified elsewhere che Forms: - Medication Reconciliation Form che - SBAR form che - Leadership Thank You Letter che Signatures: Dispatcher [employer] EDNemesio Fountain MD MD cha Hall, Patricia RN RN Nevin Baez Kelly RN RN [id number] Corrections: (The following items were deleted from the chart) 13:05 13:05 Abdomen Limited+US.RAD.BRZ ordered. EDAL EDAL 16:17 15:12 Rate is 52 beats/min. Rhythm is regular. QRS Leakey is Normal. MS interval is che prolonged at 22 msec. QRS interval is normal. QT interval is normal. No Q waves. T waves are Normal. No ST changes noted. Clinical impression: 1st degree heart block and Sinus bradycardia. Interpreted by me. Reviewed by me. [facility] 16:19 15:11 [facility] 16:34 16:19 228 kb3
[2024-09-30] MEDS ORDERED: ACETAMINOPHEN 325 MG TABLET PO PRN (16:16)
[2024-09-30] MEDS ORDERED: NS KCL 20MEQ 1,000 ML IV ONE (16:30)
[2024-09-30] MEDS ORDERED: NS KCL 20MEQ 20 MEQ/1,000 ML BAG IV SCH (17:00)
[2024-09-30] MEDS: ONDANSETRON 4 MG/2 ML VIAL IV PRN (19:50)
[2024-09-30] MEDS: FAMOTIDINE 20 MG/2 ML VIAL IV SCH (20:23)
[2024-09-30] MEDS: D5 0.9 NS 1,000 ML IV SCH (21:00)
[2024-09-30] MEDS: TRAZODONE 50 MG TABLET PO SCH (21:06)
[2024-09-30] MEDS: MEMANTINE HCL 10 MG TABLET PO SCH (21:07)
[2024-09-30] MEDS: GABAPENTIN 100 MG CAP PO SCH (21:07)
[2024-09-30] MEDS: HYDRALAZINE HCL 20 MG/ML VIAL IV PRN (22:07)
[2024-09-30] MEDS ORDERED: SUMATRIPTAN SUCCI 50 MG TAB PO PRN (22:17)
[2024-09-30] MEDS: METOPROLOL TAR 25 MG TAB PO SCH (22:17)
[2024-09-30] MEDS ORDERED: CALCITONIN NASAL SPRAY 200 IU/DOSE NAS SCH (23:00)
[2024-10-01 07:19] LABS: Absolute Basophils 0.1 K/uL (0-0.5); Absolute Lymphocytes (CBC) 0.6 K/uL (0.7-4.9); Absolute Monocytes 0.9 K/uL (0.1-1.3); Absolute Neutrophil 6.3 K/uL (1.8-8.0); Basophils % 0.7 % (0-1.3); Eosinophils % 0.3 % (0-4.4); Hematocrit 34.7 % (39.6-49.0); Hemoglobin 11.3 g/dL (13.6-17.9); Lymphocytes % 7.7 % (15.3-44.8); MCH 31.1 pg (27.0-35.0); MCHC 32.7 g/dL (32.0-36.0); MCV 95.2 fL (80-100); MPV 8.5 fL (7.6-11.3); Monocytes % 11.2 % (3.3-12.3); Neutrophils % 80.1 % (41.7-73.7); Nucleated Red Blood Cells % 0.1 % (0-0); Platelets 233 thou/uL (152-406); RBC Red Blood Cell Count 3.64 M/uL (4.33-5.43); Red Cell Distribution Width 20.3 % (12.1-15.2)
[2024-10-01 07:35] LABS: AST/SGOT 15 U/L (15-37); Albumin/Globulin Ratio 1.3 (1.1-1.8); Alkaline Phosphatase 65 U/L (45-117); Anion Gap 5.9 mEq/L (5.0-15.0); BUN Blood Urea Nitrogen 8 mg/dL (7-18); Bicarbonate 26 mEq/L (21-32); Bilirubin Direct 0.4 mg/dL (0-0.2); Bilirubin Indirect, Calculated 1.6 mg/dL (0.2-0.8); Globulin 2.4 g/dL (2.3-3.5); Glomerular Filtration Rate 87 ml/min (=/>90); Glucose Level 108 mg/dL (74-106); Lipase 21 U/L (13-75); Potassium 2.9 mEq/L (3.5-5.1); Protein, Total 5.4 g/dL (6.4-8.2); Sodium Level 142 mEq/L (136-145)
[2024-10-01 07:43] LABS: ALT/SGPT < 14 U/L (16-61)
--- NOTE | 2024-10-01 07:57 | RAD REPORT ---
EXAM: CT brain without contrast HISTORY: nausea, vomiting COMPARISON: 08/23/2024 TECHNIQUE: Multiple contiguous axial images were obtained and a CT of the brain without contrast. Sag ittal and coronal reformats were performed. One or more of the following dose reduction techniques were used: Automated exposure control, adjust ment of the mA and/or kV according to patient size, and/or iterative reconstruction. FINDINGS: No evidence of hydrocephalus, intracranial hemorrhage, or extra-axial fluid collection. Mild brain atrophy with mild periventricular and deep white matter chronic microvascular ischemic ch anges present. No evidence of midline shift or areas of brain edema. The calvarium is intact. The visualized paranasal sinuses and mastoid air cells are essentially clear . IMPRESSION: No evidence of acute intracranial abnormality.
[2024-10-01] MEDS: CETIRIZINE HCL 5 MG TABLET PO SCH (09:00)
[2024-10-01] MEDS: TOPIRAMATE 25 MG TAB PO SCH (09:00)
[2024-10-01] MEDS ORDERED: HOME MED 1 EA UNK (Escitalopram Oxalate [Escitalopram Oxalate] 10 MG Tablet) PO SCH (09:00)
[2024-10-01] MEDS ORDERED: HOME MED 1 EA UNK (Amiodarone Hcl [Amiodarone Hcl] 100 MG Tablet) PO SCH (09:00)
[2024-10-01] MEDS: FERROUS SULFATE 325 MG TAB PO SCH (09:00)
[2024-10-01] MEDS: GABAPENTIN 100 MG CAP PO SCH (09:00)
[2024-10-01] MEDS ORDERED: CYANOCOBALAMIN 1,000 MCG TAB PO SCH (09:00)
[2024-10-01] MEDS: PANTOPRAZOLE 40MG TABLET PO SCH (09:00)
[2024-10-01] MEDS: AMIODARONE HCL 200 MG TAB PO SCH (09:00)
[2024-10-01] MEDS: TAMSULOSIN 0.4 MG SR CAP PO SCH (09:00)
[2024-10-01] MEDS ORDERED: MEMANTINE HCL 10 MG TABLET PO SCH (09:00)
[2024-10-01] MEDS: ESCITALOPRAM 20 MG TAB PO SCH (09:00)
[2024-10-01] MEDS ORDERED: SODIUM CHLORIDE 0.9% 10ML INJ IV PRN (09:18)
[2024-10-01] MEDS: KCL 20 MEQ/100 mL IVPB 20 MEQ/100 ML BAG IV SCH ×2 (09:18→18:18)
[2024-10-01] MEDS: PANTOPRAZOLE 40 MG INJ IVP ONE (11:03)
[2024-10-01] MEDS: RIVASTIGMINE 4.6 MG/24 HR PATCH TD SCH (11:03)
--- NOTE | 2024-10-01 11:35 | HP ---
Date of Admission: 09/30/2024 Chief Complaint: Nausea, vomiting. History Of Present Illness: This is an 88-year-old pleasant male patient who started having this nausea and vomiting in last few days, was evaluated in the emergency room this week on and after he was evaluated, he was released to go home after routine blood work and a CAT scan of the abdomen and pelvis which did not show any acute findings. So patient was sent home with Zofran. He was taking Zofran as prescribed and yesterday, daughter brought him back to the emergency room because he was having nausea and vomiting, which was apparently getting worse now and was not able to keep anything down in his stomach. So after worsening of symptoms, he came back to ER and after he was evaluated, decision was made to admit him to hospital. No fever. No abdominal pain. No constipation or diarrhea. Allergies: NO KNOWN ALLERGIES. Medications: Amiodarone 200 mg daily, Eliquis 5 mg 2 times a day, escitalopram 10 mg daily, ferrous sulfate 325 mg daily, gabapentin 100 mg takes 2 capsules 2 times a day, memantine 5 mg 2 times a day, metoprolol 25 mg half a tablet 2 times a day, pantoprazole 40 mg daily, Exelon patch 4.6 mg transdermal patch, calcitonin nasal spray daily, Imitrex p.r.n., Topamax 25 mg daily at bedtime. Review of Systems: GI: As mentioned above. All other systems reviewed and negative. Past Medical History: Significant for migraine, tremor, Alzheimer's disease, hypertension, hyperlipidemia, diverticulosis, benign prostatic hypertrophy, osteoarthritis at multiple sites, insomnia. Past Surgical History: Cervical spine surgery. Family History: Father , had COPD. Mother , details unknown. Brother , had some unknown type of cancer. Social History: Negative for smoking and alcohol use. Physical Examination: Vital Signs: Temperature 98.5, this morning, with pulse 68, respiratory rate 12, blood pressure 170/73, oxygen saturation 97%. Height 5 feet 11 inches. Weight 200 pounds. General: Awake, alert, oriented, not in distress. HEENT: Head atraumatic, normocephalic. Conjunctivae nonerythematous. Sclerae white. Mouth, no thrush or edema noted. Ears/Nose, no mass, lesion, discharge noted. Neck: Supple. No JVD, lymph nodes, bruit, thyromegaly noted. Lungs: Bilateral good equal air entry. Clear to auscultation. No rhonchi. No rales. Heart: Normal heart sounds, no murmur or gallop. Abdomen: Soft, bowel sounds normal. No guarding, rigidity, tenderness, mass, hepatosplenomegaly, distention, or bruit noted. Extremities: No leg edema. No calf tenderness. Skin: No rash, ulcer, cellulitis. Lymphatics: No lymph node enlargement in neck, supraclavicular, infraclavicular region. Neuro: No focal neurological deficit. Chest: Unremarkable. External Genitalia: Deferred. Rectal: Deferred. Laboratory Data: Yesterday; WBC 6.3, hemoglobin 12.7, platelets 259. This morning; WBC 7.9, hemoglobin 11.3, platelets 232. For chemistry, yesterday: Sodium 139, potassium 3.1, chloride 109, bicarb 24, BUN 9, creatinine 0.94, glucose 114, total bilirubin 2, direct bilirubin 0.4, indirect bilirubin 1.6, AST 20, ALT 16, alkaline phosphatase 83. Troponin 15.3. ProBNP 888. Lipase 28. This morning; sodium 142, potassium 2.9, chloride 113, bicarb 26, BUN 8, creatinine 0.79, glucose 108, total bilirubin 2, indirect bilirubin 1.6, direct bilirubin 0.4, AST 15, ALT less than 14, alkaline phosphatase 65, lipase 21. Urinalysis negative. CAT scan of abdomen and pelvis without contrast shows trace layering of bilateral pleural effusion, left upper renal pole 2 mm nonobstructing calculus, probably stable. No other acute findings. Chest x- ray: No acute changes. Right upper quadrant abdominal ultrasound was negative for any gallstone or gallbladder wall thickening. Biliary tree normal size. CAT scan of the head without contrast done, this morning, was negative for any acute intracranial changes. Impression: 1. Intractable nausea and vomiting. 2. Hypokalemia. 3. Anemia, unspecified. 4. Paroxysmal atrial fibrillation. 5. Chronic anticoagulation therapy. 6. Hypertension. 7. Hyperlipidemia. 8. Diverticulosis. 9. Benign prostatic hypertrophy. 10. Osteoarthritis, multiple sites. 11. Insomnia. 12. Alzheimer's disease. Plan: We will go ahead and admit patient to hospital for further evaluation and management of this problem. The patient is appropriate for inpatient and is expected to spend 2 midnights in hospital. The patient has intractable nausea and vomiting, which is getting worse and initially it was about 2 hours after mealtime and now his nausea and vomiting is not even related to mealtime and it is constant off and on throughout the day. In fact, today while he was going down for CAT scan, he had episode of nausea and vomiting while he was going down as well as when he was coming back up. He has had some heartburn, indigestion at times. We will go ahead and give IV Protonix, IV fluid. Consult customer trainer and the patient will have EGD today. I have communicated details with customer trainer, Dr. Ritchie, this morning and also informed him about the patient being on Eliquis. His last dose would have been yesterday morning, but ever since he came into the hospital, we have not given any anticoagulation therapy and we will consider to restart it after EGD. SCD was ordered for DVT prophylaxis. For nausea and vomiting, we will give symptomatic treatment with Zofran as well as Phenergan was ordered, this morning. If EGD really does not explain definite underlying cause, we will have to think about biliary dyskinesia and HIDA scan was ordered to be done on Thursday to evaluate that possibility. Hypokalemia will be addressed with electrolyte replacement protocol. Anemia will not require any further intervention except monitoring. For hypertension, continue to monitor blood pressure and we will provide antihypertensive treatment as it becomes necessary. For Alzheimer's disease, we will continue his medications per order, no need for further intervention. For his atrial fibrillation, he is on amiodarone which we will continue that and also he is on Eliquis which we are keeping on hold at this time until we address this nausea and vomiting problem with more definite answer. On an outpatient basis, the patient is being evaluated by our foreign law consultant for a Watchman's procedure. Total time spent was 80 minutes including review of last hospital admission from 08/23/2024, communication with emergency room physician, review of emergency room visit record, review of last office visit record, and performing today's evaluation and management. I have also communicated with the patient's daughter regarding living will and she has some paperwork at home and she will bring it to office for my review. ROBERTH/MODL Voice ID: [id number] MTDD
[2024-10-01] MEDS: NA CHLORIDE 0.9% 500 ML ONE (14:35)
[2024-10-01] MEDS ORDERED: propofoL 200 MG/20 ML VIAL IV ONE (15:41)
[2024-10-01] MEDS: PROMETHAZINE INJ 25 MG/ML AMP IV PRN (17:35)
--- NOTE | 2024-10-01 18:11 | CON ---
Date of Consultation: 10/01/2024 Reason, For Consultation: Intractable nausea, vomiting, retching, and upper abdominal pain. History Of Present Illness: The patient is an 88-year-old white male who presents to the hospital wi th recurrent nausea and vomiting since at a holiday constitution party and son states that he has been having recu rrent nausea and vomiting episodes every few hours and is associated with midepigastric left upper qu adrant pain, which son says that he is not sure if this is just due to the retching or in and of itse lf, but says father has this severe dementia, is unable to really appropriately answer though. I can not talk to him when he asks these questions. Past Medical History: Significant for bleeding duodenal ulcer in May 30, 2024, that required tr mejia to [place] to [facility] where cautery and endo clip was placed for this bleeding ulcer . Patient also has history of hypertension, neuropathy, migraine headaches; dementia, this is advanc ed; depression, essential tremors, and injury to the neck in childhood requiring plate surgery placem ent at that time. Medications: At home include amitriptyline, escitalopram, Exelon, gabapentin, hydrochlorothiazide, i thomas, losartan, meloxicam, memantine, multivitamin, propranolol, quetiapine, Topamax, and Zyrtec. Allergies: NKDA. Social History: , 2 children. No tobacco. No alcohol. Family History: Father of myocardial infarction. Mother of dementia. Review of Systems: The patient has recurrent nausea, vomiting, and left upper quadrant pain. Denies any hematemesis, co ffee-grounds emesis, melena, hematochezia, hemoptysis, hematuria, dysuria, polydipsia, chest pain, sh ortness of breath, seizure, syncope, muscle aches, joint aches, or backaches. Dementia, he does ackn owledge and he also has depression, but no anxiety. Physical Examination: Vital Signs: Shows an elderly male lying in bed, needed a bag to vomit in at bedside. He is 5 feet 11 inches, 200 pounds, BMI of 27.9 kg/m2. HEENT: Normocephalic, atraumatic. Anicteric. Pupils are equal, round, and reactive to light. Anic teric. Oropharynx clear. Neck: Supple. No masses. Respirations: Clear to auscultation bilaterally. Cardiac: Regular rate and rhythm. Gastrointestinal: Positive bowel sounds. Soft, nondistended. Mild tenderness in upper abdomen, epi gastric, left upper quadrant, right upper quadrant area, but no peritoneal. No rebound. No Ramirez s ign. Extremities: No clubbing, cyanosis, or edema. 2+ pulses. Neurologic: Intact. Able to move all extremities well except his neck is stiff. However, son repor ts patient had surgery with a plate placed in his neck as a child due to an injury at that time in hi s childhood. Laboratory Data: Patient has a white count of 7.9, hemoglobin 11.3, hematocrit 34.7, MCV of 95, plat elet count 233; polys of 80%, up from 82% yesterday; lymphocytes 8%, and monocytes 11%. PT of 12.1, INR of 1.08. Patient has a sodium 142, potassium 3.9, chloride 113, bicarb 26, BUN of 8, creatinine of 0.8, glucose 108, calcium 8.3, magnesium 2.0, total bilirubin 2.0, direct bilirubin of 0.4, and di rect bilirubin 1.6. AST of 15, ALT of less than 14, alkaline phosphatase 65, total troponin I normal at 15.3. B-type natriuretic peptide elevated at 888. Total protein 5.4, albumin 3.0, and lipase 21 . UA; 1+ ketones, otherwise negative. Serology negative. CT abdomen and pelvis on the 3rd revealed trace layering and bilateral pleural effusions. Left upper renal pole nonobstructing calculus, 2 mm in size, otherwise negative. Ultrasound, no significant abnormality. No gallstones. Gallbladder l ooks normal on ultrasound and CT head, no acute abnormality. Impression: 1.Recurrent nausea, vomiting with retching and midepigastric left upper quadrant maximal 7/10, now d own to 2/10 approximately. I estimated though patient does have dementia and son at bedside, it coul d be due to virus or some pathogenic from a constitution party about 3 days ago at a holiday constitution party or from other. We would continue supportive care. We will rule out other problems since the patient has a history of bleeding peptic ulcer disease approximately few months ago, requiring him to go to [place] for the rapy. We will need to do upper endoscopy to investigate that. Also, BROOKS scan has been ordered by [facility]. We will see what that reveals as well and other etiologies such as gastroparesis or other as possible as well the viral illness that might have been possible over the holidays, family emelyn vidales and the patient is elderly, 88 years old. 2.History of bleeding peptic ulcer disease on June 21, 2024, approximately 3 months ago with ca utery and clip placement on the ulcer required. 3.Also history of hypertension, neuropathy, migraine headaches, dementia, depression, and essential tremors. Recommendations: 1.Continue IV fluids. Continue p.r.n. pain medications. 2.Keep patient n.p.o. 3.Continue urgent EGD. 4.Continue PPI therapy in this patient with history of bleeding and peptic ulcer disease a few month vicente DELCID/LAILA Voice ID: [id number] Report ID: [id number]
[2024-10-01] MEDS ORDERED: TRAZODONE 50 MG TABLET PO SCH (21:00)
[2024-10-01 21:39] VITALS: O2SAT 98
[2024-10-02 09:24] LABS: Anion Gap 6.3 mEq/L (5.0-15.0); Potassium 3.3 mEq/L (3.5-5.1)
[2024-10-02] MEDS: PANTOPRAZOLE 40 MG INJ IVP SCH (09:38)
[2024-10-02] MEDS: D5 0.9 NS 1,000 ML IV SCH (10:03)
[2024-10-02] MEDS: KCL 20 MEQ/100 mL IVPB 20 MEQ/100 ML BAG IV SCH (10:47)
--- NOTE | 2024-10-02 11:56 | PN ---
Date of Progress Note: 10/02/2024 Subjective: The patient was sent this morning for followup. No new complaints or problems reported by him. He had episode of nausea, vomiting twice yesterday and nothing overnight. Last episode was yesterday evening and it was mostly just spitting up little bit as daughter described. No abdominal pain. Objective: Vital Signs: Reviewed. HEENT: Unremarkable. Lungs: Clear to auscultation. Heart: Sounds normal. Abdomen: Soft. Bowel sounds normal. No guarding, rigidity, tenderness, distention. Bowel sounds no rmoactive. Extremities: No leg edema. Laboratory Data: This morning; sodium 143, potassium 3.3, chloride 113, bicarb 27, BUN 7, creatinine 0.84, and glucose 103. EGD from yesterday showed hiatal hernia and moderate diffuse gastritis and f indings were discussed with Dr. Ritchie yesterday after the procedure was done. Impression: 1.Intractable nausea and vomiting. 2.Acute gastritis. 3.Hypokalemia. 4.Alzheimer's disease. Plan: We will go ahead and continue current IV Protonix per order. We will advance diet to full liq uid diet today and we will replace electrolyte per protocol, repeat blood work tomorrow morning, and our plan is to get a HIDA scan tomorrow. The patient's pulse rate is running on the lower side. He is in sinus rhythm and takes amiodarone 200 mg daily. We will reduce dose to 100 mg daily. I did co mmunicate with the patient's daughter regarding code status and DNR order will be written in the [facility] as per patient's decision made and family has some documents that they will bring it for me to revi ew and if any of the document needs to be updated, we can assist the patient and family regarding those documents. ROBERTH/MODL Voice ID: [id number] Report ID: [id number]
--- NOTE | 2024-10-02 16:30 | P.PN ---
Subjective Date of Service: 10/04/24 Chief Complaint: Intractable N/V Subjective: Improving (Feels much better. No N/V now. Tolerating water / clear liquids. Son at bedside.) Review of Systems 10-point ROS is otherwise unremarkable Gastrointestinal: Nausea (Improved. ) Physical Examination - Vital Signs Temperature: 98.2 F Blood Pressure: 155/70 Pulse: 50 Respirations: 12 Pulse Ox (%): 94 - Physical Exam General: Alert, In no apparent distress, Oriented x3, Cooperative HEENT: Atraumatic, Normocephalic, PERRLA, EOMI Neck: Supple Respiratory: Normal air movement Cardiovascular: Normal pulses Integumentary: No breakdown Neurological: Normal speech Assessment And Plan - Current Problems (Diagnosis) (1) Nausea & vomiting Status: Acute (2) Gastritis Status: Acute - Plan REC: 1) continue Protonix 2) clear liquid diet and advance as tolerated 3) continue IV fluids for now but soon d/c 4) await EGD pathology
[2024-10-02] MEDS: ACETAMINOPHEN 325 MG TABLET PO PRN (19:48)
[2024-10-03] MEDS: KCL 20 MEQ/100 mL IVPB 20 MEQ/100 ML BAG IV SCH (02:19)
[2024-10-03 05:25] VITALS: BMI 3663.4
[2024-10-03 06:15] LABS: Absolute Basophils 0.1 K/uL (0-0.5); Absolute Eosinophils 0.2 K/uL (0-0.5); Absolute Lymphocytes (CBC) 0.7 K/uL (0.7-4.9); Absolute Monocytes 0.5 K/uL (0.1-1.3); Absolute Neutrophil 2.9 K/uL (1.8-8.0); Basophils % 1.4 % (0-1.3); Eosinophils % 4.6 % (0-4.4); Hematocrit 35.2 % (39.6-49.0); Hemoglobin 11.6 g/dL (13.6-17.9); Lymphocytes % 15.4 % (15.3-44.8); MCH 31.4 pg (27.0-35.0); MCHC 32.9 g/dL (32.0-36.0); MCV 95.5 fL (80-100); MPV 8.2 fL (7.6-11.3); Monocytes % 12.2 % (3.3-12.3); Neutrophils % 66.4 % (41.7-73.7); Nucleated Red Blood Cells % 0.2 % (0-0); Platelets 209 thou/uL (152-406); RBC Red Blood Cell Count 3.68 M/uL (4.33-5.43); Red Cell Distribution Width 19.8 % (12.1-15.2)
[2024-10-03 06:31] LABS: AST/SGOT 12 U/L (15-37); Albumin 2.9 g/dL (3.4-5.0); Albumin/Globulin Ratio 1.2 (1.1-1.8); Alkaline Phosphatase 64 U/L (45-117); Anion Gap 7.8 mEq/L (5.0-15.0); BUN Blood Urea Nitrogen 7 mg/dL (7-18); Bicarbonate 24 mEq/L (21-32); Globulin 2.4 g/dL (2.3-3.5); Glomerular Filtration Rate 86 ml/min (=/>90); Glucose Level 95 mg/dL (74-106); Magnesium 1.9 mg/dL (1.6-2.4); Potassium 3.8 mEq/L (3.5-5.1); Protein, Total 5.3 g/dL (6.4-8.2); Sodium Level 141 mEq/L (136-145)
[2024-10-03 06:32] LABS: ALT/SGPT < 14 U/L (16-61)
--- NOTE | 2024-10-03 12:22 | RAD REPORT ---
EXAMINATION: Hepatobiliary System W/ Ph CLINICAL INDICATION: Male, 88 years old. [facility] MAIN nausea, vomiting TECHNIQUE: Hepatobiliary imaging was acquired over the abdomen for 60 minutes following intravenous a dministration of radiotracer. Slow intravenous administration of CCK. CCK dose: 1.8 ug Kinevac. Additional imaging was acquired over the abdomen for a total of 120 minutes. Gallbladder ejection fra ction was then calculated. RADIOPHARMACEUTICAL: 6.0 mCi Technetium 99m Mebrofenin. COMPARISON: Abdomen ultrasound 09/30/2024. CT abdomen pelvis 09/30/2024. FINDINGS: There is prompt accumulation of the radiopharmaceutical in the liver and excretion into the biliary d uctal system, and small bowel. Slightly delayed visualization of the gallbladder, starting approximately 1:15 hours following tracer administration, probably within normal range. Gallbladder ejection fraction was calculated at 65% (normal range >35%). Additional symptoms were not duplicated. IMPRESSION: Essentially normal hepatobiliary scan with normal gallbladder ejection fraction.
[2024-10-03] MEDS: AMIODARONE HCL 200 MG TAB PO SCH (12:24)
[2024-10-04 05:14] LABS: Anion Gap 7.2 mEq/L (5.0-15.0); Magnesium 1.8 mg/dL (1.6-2.4); Potassium 3.2 mEq/L (3.5-5.1)
--- NOTE | 2024-10-04 06:19 | PN ---
Date of Progress Note: 10/03/2024 Subjective: The patient was seen this morning for followup. No new complaints or problems reported by the patient, lying in bed, not in distress. No more nausea, vomiting. Denies any abdominal pain. He is tolerating full liquid diet well and today we will go ahead and advance diet to regular diet. Objective: Vital Signs: Reviewed. HEENT: Unremarkable. Lungs: Clear to auscultation. Heart: Sounds normal. Abdomen: Soft. Bowel sounds normal. No guarding, rigidity, tenderness, distention. Extremities: No leg edema. Laboratory Data: Today, white count 4.4, hemoglobin 11.6, platelets 209. Sodium 141, potassium 3.8, chloride 113, bicarb 24, BUN 7, creatinine 0.80, glucose 95. Liver function tests unremarkable. Impression: 1.Intractable nausea, vomiting. 2.Acute gastritis. 3.Alzheimer's disease. 4.Atrial fibrillation. 5.Chronic anticoagulation therapy. Plan: We will go ahead and continue current medication. Continue current pantoprazole. The patient will have HIDA scan today and Physical Therapy to help ambulate the patient. We will go ahead and s tart him on regular diet after HIDA scan is done. Details and plan of treatment discussed with the p atient and the patient's daughter who was at bedside. Also, Social Service was consulted to help the patient [facility]. ROBERTH/ANILL Voice ID: [id number] Report ID: [id number]
[2024-10-04] MEDS ORDERED: PANTOPRAZOLE 40MG TABLET PO SCH (06:30)
[2024-10-04] MEDS ORDERED: POTASSIUM 25 MEQ EFFERV TAB PO ONE (07:48)
[2024-10-04] MEDS ORDERED: KCL 20 MEQ/100 mL IVPB 20 MEQ/100 ML BAG IV SCH (08:00)
[2024-10-04 12:43] VITALS: BP 155/70; TEMP 98.2
--- NOTE | 2024-10-04 20:36 | DS ---
Date of Discharge: 10/04/2024 Disposition: Discharged to go home. Physical Examination: HEENT: Unremarkable. Lungs: Clear to auscultation. Heart: Sounds normal. Abdomen: Soft. Bowel sounds normal. No guarding, rigidity, tenderness, distention. Extremities: No leg edema. Laboratory Data: Upon admission; WBC 6.30, hemoglobin 12.7, platelets 259. Yesterday; WBC 4.40, hem oglobin 11.6, platelets 209. For chemistry today; sodium 141, potassium 3.2, chloride 103, bicarb 24 , BUN 7, creatinine 0.76, glucose 104, magnesium 1.8. Upon admission; sodium 139, potassium 3.1, chl oride 109, bicarb 24, BUN 9, creatinine 0.94, glucose 114, total bilirubin 2, direct bilirubin 0.4, i ndirect bilirubin 1.6, AST 20, ALT 16, alkaline phosphatase 83, lipase 28. HIDA scan which was done yesterday came back normal. Hospital Course: This is an 88-year-old pleasant male patient who came into emergency room with comp laints of intractable nausea and vomiting. Please see dictated H and P for more information. After patient was evaluated in the emergency room, he was admitted to the hospital. Initially, patient was on clear liquid diet. IV fluid was given and the patient was started on IV Protonix. Nausea medica tion was given to him as well. GI consultation was requested from Dr. Ritchie and the patient had an EGD done, which showed moderate amount of gastritis. His IV Protonix was continued and over period o f this hospitalization that actually has helped to resolve his nausea and vomiting and we started to advance his diet and he is tolerating regular food very well without any problem, without any nausea or vomiting. Physical Therapy was consulted and the patient has significant generalized weakness and debility. He lives at home with daughter and son-in-law, and I did talk to the patient's daughter tad rasmussen regarding possibility of either going home with home health care or go to half-way facili ty. Daughter does not want him to go to half-way facility and she wanted the patient to come home with her with home health and home physical therapy. So Social Service was consulted and the opal cali was discharged to go home in stable condition with following discharge medications and instruct ions. Final Diagnoses: 1.Intractable nausea and vomiting. 2.Hypokalemia. 3.Acute gastritis. 4.Anemia, unspecified. 5.Paroxysmal atrial fibrillation. 6.Chronic anticoagulation therapy. 7.Hypertension. 8.Hyperlipidemia. 9.Diverticulosis. 10.Benign prostatic hypertrophy. 11.Osteoarthritis, multiple sites. 12.Insomnia. 13.Alzheimer's disease. 14.Generalized weakness. 15.Debility. Discharge Medications And Instructions: 1.Continue all prior home medications except following changes. a.Change amiodarone 200 mg take half a tablet by mouth daily and this dose reduction was done during this hospitalization due to his pulse rate in range of 50-55. b.Stop famotidine. c.Change pantoprazole 40 mg take 1 tablet by mouth 2 times a day for 1 month, then 1 tablet by mouth daily to continue. 2.Follow up at my office next week. Total time spent 40 minutes. ROBERTH/LAILA Voice ID: [id number] Report ID: [id number]
== END 2024-10-04 09:27 | disposition home health service (06) | DRG 392 ==
LOC: ER 11:06 → ERHOLD 16:00 → 2ND 17:44
PROVIDERS: ADMIT Internal Medicine; ATTEND Internal Medicine
PROC: 0DB68ZX Excision of Stomach, Via Natural or Artificial Opening Endoscopic, Diagnostic (ICD-10-PCS; principal; 2024-09-30)
DX: K29.00 Acute gastritis without bleeding (principal); I10 Essential (primary) hypertension; G20.A1 Parkinson's disease without dyskinesia, without mention of fluctuations; F02.80 Dementia in other diseases classified elsewhere, unspecified severity, without behavioral disturbance, psychotic disturbance, mood disturbance, and anxiety; F32.A Depression, unspecified; G62.9 Polyneuropathy, unspecified; E78.5 Hyperlipidemia, unspecified; K57.90 Diverticulosis of intestine, part unspecified, without perforation or abscess without bleeding; N40.0 Benign prostatic hyperplasia without lower urinary tract symptoms; M19.90 Unspecified osteoarthritis, unspecified site; I48.0 Paroxysmal atrial fibrillation; Z79.01 Long term (current) use of anticoagulants; E87.5 Hyperkalemia
CPT/HCPCS: 36415; 70450; 71045; 74176; 74177; 76705; 78227; 80048; 80053; 80076; 81001; 83690; 83735; 83880; 84132; 84484; 85025; 85610; 87804; 87811; 88305; 88312; 96361; 96374; 96375; 99284; A9537; J0360; J2405; J2470; J2550; J2704; J2805; J3480; J7030; J7040; J7042; Q9967

== ENCOUNTER 2024-11-07 19:54 | Inpatient (IN) | payer OTHER ==
[2024-11-07 21:25] LABS: Absolute Lymphocytes (CBC) 0.2 K/uL (0.7-4.9); Absolute Monocytes 0.7 K/uL (0.1-1.3); Absolute Neutrophil 11.4 K/uL (1.8-8.0); Basophils % 0.4 % (0-1.3); Hematocrit 38.5 % (39.6-49.0); Hemoglobin 12.3 g/dL (13.6-17.9); Lymphocytes % 1.7 % (15.3-44.8); MCH 30.7 pg (27.0-35.0); MCV 95.9 fL (80-100); MPV 8.4 fL (7.6-11.3); Neutrophils % 91.9 % (41.7-73.7); Platelets 190 thou/uL (152-406); RBC Red Blood Cell Count 4.01 M/uL (4.33-5.43); Red Cell Distribution Width 19.2 % (12.1-15.2)
--- NOTE | 2024-11-07 21:28 | RAD REPORT ---
EXAM: Chest Single View HISTORY: Cough;Dyspnea COMPARISON: 11/07/2024 FINDINGS: LUNGS/PLEURA: Ill-defined opacities in the left greater than right lung bases. The mild right basilar opacities are new from prior. Left basilar opacities are similar.. MEDIASTINUM: The mediastinal silhouette is within normal limits. CARDIAC: The cardiac silhouette is within normal limits. UPPER ABDOMEN: No significant abnormality. BONES: No acute abnormality. LINES/TUBES/OTHER: N/A IMPRESSION: Basilar airspace disease, left greater than right, which is slightly worse on the right side from anneliese or could reflect pneumonia or pneumonitis.
--- NOTE | 2024-11-07 21:36 | ER ---
Nurse's Notes [facility] Name: Ramesh Mesa Jr Age: 88 yrs Sex: Male : 1935 Arrival Date: 11/07/2024 Time: 19:54 Bed 6 Private MD: Diagnosis: Unspecified bacterial pneumonia;Sepsis, unspecified organism Presentation: 11/07 20:14 Chief complaint: Patient's son or daughter states: started new ABX today and began lg3 vomiting shortly after. still continuing to vomit and run a low grade fever. Coronavirus screen: Client denies travel out of the [place] in the last 14 days. At this time, the client does not indicate any symptoms associated with coronavirus-19. Ebola Screen: No symptoms or risks identified at this time. Initial Sepsis Screen: Does the patient meet any 2 criteria? No. Patient's initial sepsis screen is negative. Does the patient have a suspected source of infection? No. Patient's initial sepsis screen is negative. Risk Assessment: Do you want to hurt yourself or someone else?. Onset of symptoms is unknown. 20:14 Method Of Arrival: Wheelchair lg3 20:14 Acuity: EDIN 3 lg3 Triage Assessment: 20:18 General: Appears in no apparent distress. uncomfortable, ill, Behavior is calm, flat. lg3 Pain: Denies pain. EENT: No deficits noted. Neuro: No deficits noted. Littlejohn Agitation-Sedation Scale (RASS): 0 - Alert and Calm Level of Consciousness is awake, alert, obeys commands, Oriented to person, place, situation. Cardiovascular: No deficits noted. Denies chest pain, shortness of breath, Capillary refill < 3 seconds Clubbing of nail beds is absent JVD is absent Patient's skin is warm and dry. Respiratory: No deficits noted. Airway is patent Respiratory effort is even, unlabored, Respiratory pattern is regular, symmetrical. GI: Reports intolerance of fluids, intolerance of food, nausea, vomiting. : No signs and/or symptoms were reported regarding the genitourinary system. Derm: No deficits noted. No signs and/or symptoms reported regarding the dermatologic system. Skin is intact, is healthy with good turgor, Skin is dry, Skin is normal, Skin temperature is warm. Musculoskeletal: No deficits noted. Circulation, motion, and sensation intact. Range of motion: intact in all extremities. Historical: - Allergies: 20:18 No Known Allergies; lg3 - Home Meds: 20:18 amiodarone 200 mg Oral tablet 1 tab daily [Active]; apixaban 5 mg (74 tabs) oral lg3 Tablet, Dose Pack 2 times per day [Active]; metoprolol tartrate 12.5 mg Oral tablet 2 times per day [Active]; pantoprazole 40 mg oral granules delayed release for susp packet 2 times per day [Active]; memantine 5 mg oral tablet [Active]; cetirizine 5 mg oral tablet daily [Active]; escitalopram oxalate 10 mg Oral tablet daily [Active]; ferrous sulfate 325 mg (65 mg iron)/5 mL oral solution daily [Active]; gabapentin 100 mg oral capsule 2 times per day [Active]; rivastigmine 9.5 mg/24 hour transdermal patch, transdermal 24 hours 1 patch daily [Active]; Sumatriptan Sub-Q as needed [Active]; topiramate 25 mg oral Capsule, ER 24 hr twice a day [Active]; Vitamin B-12 1,000 mcg Oral tablet daily [Active]; tamsulosin 0.8mg oral capsule daily [Active]; finasteride 5 mg oral tablet daily [Active]; - PMHx: 20:18 Dementia; depressive disorder; Hypertensive disorder; Migraines; neuropathy; right hand lg3 tremors; - PSHx: 20:18 None; lg3 - Immunization history:: Adult Immunizations up to date. - Infectious Disease History:: Denies. - Social history:: Smoking status: Patient denies any tobacco usage or history of. Patient/guardian denies using alcohol, street drugs. Screenin:10 [facility] ED Fall Risk Assessment (Adult) History of falling in the last 3 months, lg3 including since admission No falls in past 3 months (0 pts) Confusion or Disorientation Yes (5 pts) Intoxicated or Sedated No (0 pts) Impaired Gait Yes (1 pt) Mobility Assist Device Used Yes (1 pt) Altered Elimination Yes (1 pt) Score/Fall Risk Level 3 or more points = High Risk Oriented to surroundings, Maintained a safe environment, Educated pt \T\ family on fall prevention, incl call for assistance when getting out of bed, Assessed \T\ reinforced patient's understanding of fall precautions, Provided non-skid footwear, Utilized family, sitter, or virtual regional owner operator truck driver as indicated. Abuse screen: Denies threats or abuse. Denies injuries from another. Nutritional screening: No deficits noted. Tuberculosis screening: No symptoms or risk factors identified. Assessment: 22:10 General: Appears in no apparent distress. comfortable, ill, Behavior is calm, lg3 cooperative. Pain: Denies pain. Neuro: No deficits noted. Littlejohn Agitation-Sedation Scale (RASS): 0 - Alert and Calm Level of Consciousness is awake, alert, obeys commands, Oriented to person, place, situation. Cardiovascular: No deficits noted. Denies chest pain, shortness of breath, Capillary refill < 3 seconds Clubbing of nail beds is absent JVD is absent Patient's skin is warm and dry. Respiratory: No deficits noted. Airway is patent Respiratory effort is even, unlabored, Respiratory pattern is regular, symmetrical. GI: Abdomen is round non-distended, obese, Bowel sounds present X 4 quads. Abd is soft and non tender X 4 quads. Parent/caregiver reports the patient having intolerance of food, intolerance of fluids, nausea, vomiting. : No signs and/or symptoms were reported regarding the genitourinary system. EENT: No deficits noted. No signs and/or symptoms were reported regarding the EENT system. Derm: No deficits noted. No signs and/or symptoms reported regarding the dermatologic system. Skin is intact, is healthy with good turgor, Skin is dry, Skin is normal, Skin temperature is warm. Musculoskeletal: No deficits noted. No signs and/or symptoms reported regarding the musculoskeletal system. Circulation, motion, and sensation intact. Range of motion: intact in all extremities. Vital Signs: 20:14 BP 166 / 82; Pulse 91; Resp 15 S; Temp 99(O); Pulse Ox 90% on R/A; Weight 85.73 kg (R); lg3 Height 6 ft. 2 in. (R); Pain 0/10; 21:27 BP 139 / 85; Pulse 83; Resp 18; Pulse Ox 93% on NC; oe 22:10 BP 132 / 66; Pulse 77; Resp 17 S; Pulse Ox 96% on 2 lpm NC; lg3 20:14 Body Mass Index 24.27 (85.73 kg, 187.96 cm) lg3 20:14 Pain Scale: Adult lg3 ED Course: 19:56 Patient arrived in ED. ra3 20:01 Arya Melton MD is Attending Physician. ec2 20:16 Triage completed. lg3 20:18 Arm band placed on right wrist. lg3 20:42 EKG done, by ED staff, reviewed by Arya Melton MD. oe 20:54 First set of blood cultures drawn by me. oe 21:03 Chest Single View XRAY In Process Unspecified. EDMS 21:12 Second set of blood cultures drawn by me. oe 21:20 CBC with Diff Sent. oe 21:20 CMP Sent. oe 21:20 Lactate w/ 2H reflex if indic. Sent. oe 21:20 Protime (+inr) Sent. oe 21:20 Ptt, Activated Sent. oe 21:20 SARS-COV-2 Antigen Rapid Sent. oe 21:20 Flu Sent. oe 21:20 Inserted saline lock: 20 gauge in right forearm, using aseptic technique. Blood oe collected. Flushed with 10 mL NS. 21:35 Aleksandra Armando MD is Hospitalizing Provider. ec2 22:04 Geeta Mcguire RN is Primary Nurse. lg3 22:05 Report received from JACOB Deal. lg3 22:10 Patient has correct armband on for positive identification. Placed in gown. Bed in low lg3 position. Call light in reach. Side rails up X2. Client placed on continuous cardiac and pulse oximetry monitoring. NIBP monitoring applied. vehicle monitor technician on. Door closed. Noise minimized. Warm blanket given. Pillow given. Cleaned of incontinence. Linen changed. Family accompanied patient. 11/08 01:37 No provider procedures requiring assistance completed. Patient admitted, IV remains in lg3 place. 07:15 Provided Education on: admit. ko1 Administered Medications: 11/07 22:24 Drug: Ondansetron IVP 4 mg IVP once; over 2 minutes Route: IVP; Site: right forearm; lg3 11/08 00:59 Follow up: Response: No adverse reaction; Marked relief of symptoms lg3 11/07 22:24 Drug: Piperacillin-Tazobactam IVPB 3.375 grams IVPB once over 60 mins; (mix in NS 100 lg3 mL) Route: IVPB; Infused Over: 60 mins; Site: right forearm; 11/08 00:58 Follow up: Response: No adverse reaction; IV Status: Completed infusion; IV Intake: lg3 100ml 11/07 22:24 Drug: NS 0.9% IV 1000 ml IV at 1000 ml once; to be given as a bolus over 60 minutes lg3 Route: IV; Rate: 1000 ml; Site: right forearm; 11/08 00:58 Follow up: Response: No adverse reaction; IV Status: Completed infusion; IV Intake: lg3 1000ml 00:57 Drug: Namenda PO 5 mg PO once Route: PO; lg3 01:08 Follow up: Response: No adverse reaction lg3 00:57 Drug: Gabapentin PO 100 mg PO once Route: PO; lg3 01:08 Follow up: Response: No adverse reaction lg3 00:57 Drug: Topamax PO 25 mg PO once Route: PO; lg3 01:08 Follow up: Response: No adverse reaction lg3 00:58 Drug: Eliquis PO 5 mg PO once Route: PO; lg3 01:08 Follow up: Response: No adverse reaction lg3 00:58 Drug: Metoprolol PO 12.5 mg PO once Route: PO; lg3 01:08 Follow up: Response: No adverse reaction lg3 00:58 Drug: Pantoprazole PO 40 mg PO once Route: PO; lg3 01:08 Follow up: Response: No adverse reaction lg3 04:20 CANCELLED (Physician Discretion): tessalon mg PO once ec2 04:21 CANCELLED (Physician Discretion): codeine-guaifenesinliquid (10 mg-100 mg/5 ml) 5 ml PO ec2 once Medication: 11/07 22:10 VIS not applicable for this client. lg3 Intake: 11/08 00:58 IV: 1000ml; Total: 1000ml. lg3 00:58 IV: 100ml; Total: 1100ml. lg3 Outcome: 11/07 21:35 Decision to Hospitalize by Provider. ec2 11/08 01:37 Admitted to ER Hold. Please see [facility] for further documentation. lg3 Condition: stable Instructed on the need for admit, 07:21 Patient left the ED. ko1 Signatures: Dispatcher [employer] EDMaverick Petersen Lacie, RN RN lg3 Barbara Haider RN RN ko1 Melton, Arya, MD MD ec2 Reynoso, Yanci ra3
--- NOTE | 2024-11-07 21:36 | EDPHYS ---
Physician Documentation [facility] Name: Ramesh Mesa Jr Age: 88 yrs Sex: Male : 1935 Arrival Date: 11/07/2024 Time: 19:54 Bed 6 Private MD: ED Arya Lamb HPI: 11/07 20:15 This 88 yrs old Male presents to ER via Unassigned with complaints of Vomiting. ec2 20:15 Patient arrives today for evaluation of nausea and vomiting. Discussed the case with ec2 Dr. Armando prior to arrival, patient with a diagnosis of pneumonia outpatient plan is to admit the patient for antibiotics and control of his nausea and vomiting.. Historical: - Allergies: 20:18 No Known Allergies; lg3 - Home Meds: 20:18 amiodarone 200 mg Oral tablet 1 tab daily [Active]; apixaban 5 mg (74 tabs) oral lg3 Tablet, Dose Pack 2 times per day [Active]; metoprolol tartrate 12.5 mg Oral tablet 2 times per day [Active]; pantoprazole 40 mg oral granules delayed release for susp packet 2 times per day [Active]; memantine 5 mg oral tablet [Active]; cetirizine 5 mg oral tablet daily [Active]; escitalopram oxalate 10 mg Oral tablet daily [Active]; ferrous sulfate 325 mg (65 mg iron)/5 mL oral solution daily [Active]; gabapentin 100 mg oral capsule 2 times per day [Active]; rivastigmine 9.5 mg/24 hour transdermal patch, transdermal 24 hours 1 patch daily [Active]; Sumatriptan Sub-Q as needed [Active]; topiramate 25 mg oral Capsule, ER 24 hr twice a day [Active]; Vitamin B-12 1,000 mcg Oral tablet daily [Active]; tamsulosin 0.8mg oral capsule daily [Active]; finasteride 5 mg oral tablet daily [Active]; - PMHx: 20:18 Dementia; depressive disorder; Hypertensive disorder; Migraines; neuropathy; right hand lg3 tremors; - PSHx: 20:18 None; lg3 - Immunization history:: Adult Immunizations up to date. - Infectious Disease History:: Denies. - Social history:: Smoking status: Patient denies any tobacco usage or history of. Patient/guardian denies using alcohol, street drugs. ROS: 20:15 Constitutional: as per hpi ec2 Exam: 20:15 Constitutional: No acute distress ec2 Vital Signs: 20:14 BP 166 / 82; Pulse 91; Resp 15 S; Temp 99(O); Pulse Ox 90% on R/A; Weight 85.73 kg (R); lg3 Height 6 ft. 2 in. (R); Pain 0/10; 21:27 BP 139 / 85; Pulse 83; Resp 18; Pulse Ox 93% on NC; oe 22:10 BP 132 / 66; Pulse 77; Resp 17 S; Pulse Ox 96% on 2 lpm NC; lg3 20:14 Body Mass Index 24.27 (85.73 kg, 187.96 cm) lg3 20:14 Pain Scale: Adult lg3 MDM: 20:01 Medical Screening Exam initiated ec2 20:15 Data reviewed: vital signs, nurses notes. ED course: Patient arrives today with nausea ec2 and vomiting setting of known outpatient diagnosis of pneumonia. Plan to obtain lab work, empirically treat with antibiotics and admit to hospital for further management.. 20:42 ED course: EKG independently reviewed and interpreted by me, shows sinus rhythm, rate ec2 92, no acute ST segment elevations, intervals are nonactionable. 22:03 ED course: Sepsis reassessment complete. ec2 11/07 19:58 Order name: Blood Culture Adult (2) rn 11/07 19:58 Order name: CBC with Diff; Complete Time: 21:54 rn 11/07 19:58 Order name: CMP; Complete Time: 21:50 rn 11/07 19:58 Order name: Lactate w/ 2H reflex if indic.; Complete Time: 22:03 rn 11/07 19:58 Order name: Protime (+inr); Complete Time: 22:03 rn 11/07 19:58 Order name: Ptt, Activated; Complete Time: 22:03 rn 11/07 19:58 Order name: Flu; Complete Time: 22:03 rn 11/07 19:58 Order name: SARS-COV-2 Antigen Rapid; Complete Time: 22:03 rn 11/07 21:29 Order name: Manual Differential; Complete Time: 21:54 EDMS 11/07 21:29 Order name: Glucose, Ancillary Testing; Complete Time: 21:32 EDMS 11/07 21:42 Order name: Basic Metabolic Panel EDMS 11/07 21:42 Order name: Basic Metabolic Panel EDMS 11/07 21:42 Order name: CBC with Automated Diff EDMS 11/07 21:42 Order name: CBC with Automated Diff EDMS 11/07 19:58 Order name: Chest Single View XRAY; Complete Time: 21:32 rn 11/07 21:42 Order name: Respiratory Therapy Consult EDGA 11/07 19:58 Order name: Accucheck; Complete Time: 21:19 rn 11/07 19:58 Order name: Cardiac monitoring; Complete Time: 21:29 rn 11/07 19:58 Order name: EKG - Nurse/Tech; Complete Time: 20:42 rn 11/07 19:58 Order name: IV Saline Lock - Large Bore; Complete Time: 21:19 rn 11/07 19:58 Order name: Labs collected and sent; Complete Time: 21:19 rn 11/07 19:58 Order name: O2 Per Protocol; Complete Time: 21:29 rn 11/07 19:58 Order name: O2 Sat Monitoring; Complete Time: 21:29 rn 11/07 19:58 Order name: Vital Signs; Complete Time: 22:05 rn Administered Medications: 22:24 Drug: Ondansetron IVP 4 mg IVP once; over 2 minutes Route: IVP; Site: right forearm; 3 11/08 00:59 Follow up: Response: No adverse reaction; Marked relief of symptoms 3 11/07 22:24 Drug: Piperacillin-Tazobactam IVPB 3.375 grams IVPB once over 60 mins; (mix in NS 100 lg3 mL) Route: IVPB; Infused Over: 60 mins; Site: right forearm; 11/08 00:58 Follow up: Response: No adverse reaction; IV Status: Completed infusion; IV Intake: lg3 100ml 11/07 22:24 Drug: NS 0.9% IV 1000 ml IV at 1000 ml once; to be given as a bolus over 60 minutes lg3 Route: IV; Rate: 1000 ml; Site: right forearm; 11/08 00:58 Follow up: Response: No adverse reaction; IV Status: Completed infusion; IV Intake: lg3 1000ml 00:57 Drug: Namenda PO 5 mg PO once Route: PO; lg3 01:08 Follow up: Response: No adverse reaction lg3 00:57 Drug: Gabapentin PO 100 mg PO once Route: PO; lg3 01:08 Follow up: Response: No adverse reaction lg3 00:57 Drug: Topamax PO 25 mg PO once Route: PO; lg3 01:08 Follow up: Response: No adverse reaction lg3 00:58 Drug: Eliquis PO 5 mg PO once Route: PO; lg3 01:08 Follow up: Response: No adverse reaction lg3 00:58 Drug: Metoprolol PO 12.5 mg PO once Route: PO; lg3 01:08 Follow up: Response: No adverse reaction lg3 00:58 Drug: Pantoprazole PO 40 mg PO once Route: PO; lg3 01:08 Follow up: Response: No adverse reaction lg3 04:20 CANCELLED (Physician Discretion): tessalon mg PO once ec2 04:21 CANCELLED (Physician Discretion): codeine-guaifenesinliquid (10 mg-100 mg/5 ml) 5 ml PO ec2 once Disposition Summary: 11/07/24 21:35 Hospitalization Ordered Notes: Hospitalization Status: Inpatient Admission ec2 Provider: Aleksandra Armando Condition: Stable ec2 Problem: new ec2 Symptoms: have improved ec2 Bed/Room Type: Standard ec2 Location: Telemetry/MedSurg (Inpatient)(11/08/24 06:27) Room Assignment: [facility](11/08/24 06:27) Diagnosis - Unspecified bacterial pneumonia ec2 - Sepsis, unspecified organism ec2 Discharge Instructions: - Discharge Summary Sheet Forms: - Family Work Release kl - Medication Reconciliation Form ec2 - SBAR form ec2 - Leadership Thank You Letter ec2 Signatures: Dispatcher [employer] Ashley Marcano RN RN kl Nieto, Roman, MD MD rn Able, Lacie, RN RN lg3 Corral, Edwin, MD MD ec2 Corrections: (The following items were deleted from the chart) 01:37 11/07 21:35 Telemetry/MedSurg (Inpatient) ec2 lg3 11/08 01:37 11/07 21:35 ec2 lg3 11/08 04:20 04:04 Tessalon Perle PO 200 mg PO once ordered. ec2 ec2 04:21 04:04 Codeine-Guaifenesin PO Liquid (10 mg-100 mg/5 mL) 5 ml PO once ordered. ec2 ec2 06:27 01:37 [facility] ER HOLD lg3 kl 06:27 01:37 ERHOLD- lg3 kl
[2024-11-07] MEDS ORDERED: ONDANSETRON 4 MG/2 ML VIAL IV PRN (21:37)
[2024-11-07 21:42] LABS: Albumin 3.5 g/dL (3.4-5.0); Anion Gap 11.5 mEq/L (5.0-15.0); Bilirubin Total 1.6 mg/dL (0.2-1.0); Globulin 3.4 g/dL (2.3-3.5); Potassium 3.5 mEq/L (3.5-5.1); Protein, Total 6.9 g/dL (6.4-8.2)
[2024-11-07 21:51] LABS: Band Neutrophils 13 % (0-1); Differential Total Cells Count 100; Lymphocytes 4 % (15-42); Monocytes 3 % (0-10); Reactive Lymphocytes 3 %; Segmented Neutrophils 77 % (40-80)
[2024-11-07 21:53] LABS: Blood Morphology Comment NOT SEEN (NOT SEEN); Platelet Estimate ADEQ
[2024-11-07 21:59] LABS: SARS-CoV-2 Antigen CONTROL BLUE LINE VIS/BG OK; SARS-CoV-2 Antigen Rapid Res Negative (Negative)
[2024-11-07 22:00] LABS: PT Prothrombin Time 15.6 SECONDS (9.4-12.5); PTT, Activated Partial Thromb 35.1 SECONDS (24.3-36.9); Protime INR 1.49
[2024-11-07] MEDS ORDERED: NA CHLORIDE 0.9% 1,000 ML ONE (22:09)
[2024-11-07] MEDS ORDERED: PIPERACIL/TAZO 3.375 GM VIAL IV ONE (22:09)
[2024-11-07] MEDS ORDERED: ONDANSETRON 4 MG/2 ML VIAL ONE (22:09)
[2024-11-07] MEDS ORDERED: NA CHLORIDE 0.9% 100 ML ONE (22:09)
[2024-11-07 23:00] VITALS: BMI 24.3
[2024-11-07] MEDS ORDERED: APIXABAN 5 MG TABLET ONE (23:32)
[2024-11-07] MEDS ORDERED: PANTOPRAZOLE 40MG TABLET PO ONE (23:32)
[2024-11-07] MEDS ORDERED: METOPROLOL TAR 25 MG TAB ONE (23:33)
[2024-11-07] MEDS: TOPIRAMATE 25 MG TAB ONE (23:37)
[2024-11-07] MEDS: MEMANTINE HCL 10 MG TABLET ONE (23:37)
[2024-11-07] MEDS: GABAPENTIN 100 MG CAP ONE (23:39)
[2024-11-08] MEDS ORDERED: NA CHLORIDE 0.9% 0 ML ONE (00:54)
[2024-11-08] MEDS: NA CHLORIDE 0.9% 1,000 ML IV SCH (01:35)
[2024-11-08 04:37] LABS: Absolute Basophils 0.1 K/uL (0-0.5); Absolute Lymphocytes (CBC) 0.3 K/uL (0.7-4.9); Absolute Monocytes 0.8 K/uL (0.1-1.3); Absolute Neutrophil 9.5 K/uL (1.8-8.0); Basophils % 0.6 % (0-1.3); Eosinophils % 0.1 % (0-4.4); Hematocrit 31.9 % (39.6-49.0); Hemoglobin 10.5 g/dL (13.6-17.9); Lymphocytes % 3.2 % (15.3-44.8); MCH 31.5 pg (27.0-35.0); MCHC 32.9 g/dL (32.0-36.0); MCV 95.8 fL (80-100); MPV 8.8 fL (7.6-11.3); Monocytes % 7.2 % (3.3-12.3); Platelets 199 thou/uL (152-406); RBC Red Blood Cell Count 3.33 M/uL (4.33-5.43); Red Cell Distribution Width 19.1 % (12.1-15.2)
[2024-11-08 04:41] LABS: Neutrophils % 88.9 % (41.7-73.7)
[2024-11-08] MEDS: PIPER TAZO 3.375 GM in NA CHLORIDE 0.9% 100 ML IV SCH (06:00)
[2024-11-08] MEDS ORDERED: NA CHLORIDE 0.9% 100 ML ONE (06:06)
[2024-11-08] MEDS ORDERED: PIPERACIL/TAZO 3.375 GM VIAL IV ONE (06:06)
[2024-11-08 06:17] LABS: Anion Gap 8.7 mEq/L (5.0-15.0); Potassium 3.7 mEq/L (3.5-5.1)
[2024-11-08] MEDS ORDERED: NA CHLORIDE 0.9% 1,000 ML ONE (06:30)
[2024-11-08] MEDS: ALBUTEROL 2.5 MG/3 ML NEB SOL NEB SCH (08:45)
[2024-11-08] MEDS: FERROUS SULFATE 325 MG TAB PO SCH (09:00)
[2024-11-08] MEDS: PANTOPRAZOLE 40MG TABLET PO SCH (09:39)
[2024-11-08] MEDS: RIVASTIGMINE 4.6 MG/24 HR PATCH TD SCH (09:39)
[2024-11-08] MEDS: BENZONATATE 100 MG CAP PO SCH (09:39)
[2024-11-08] MEDS: AMIODARONE HCL 200 MG TAB PO SCH (09:40)
[2024-11-08] MEDS: APIXABAN 5 MG TABLET PO SCH (09:40)
[2024-11-08] MEDS: GABAPENTIN 100 MG CAP PO SCH (09:41)
[2024-11-08] MEDS: ESCITALOPRAM 20 MG TAB PO SCH (09:41)
[2024-11-08] MEDS: MEMANTINE HCL 10 MG TABLET PO SCH (09:41)
[2024-11-08] MEDS: METOPROLOL TAR 25 MG TAB PO SCH (18:00)
--- NOTE | 2024-11-08 18:59 | HP ---
Date of Admission: 11/08/2024 Chief Complaint: Cough, congestion, coughing up mucus, and nausea, vomiting. History Of Present Illness: This is an 88-year-old pleasant male patient, who came into office yesterday with above-mentioned complaints and he was coughing up some green-colored mucus. After he was examined, I was concerned about possibility of pneumonia, so he was asked to go to hospital for a chest x-ray which did show left basal infiltrate and the patient was started on Augmentin. He took first dose of Augmentin yesterday and within 2 hours after taking it, he started having nausea, vomiting, and was feeling very weak. At that time, decision was made to send him to emergency room and I did communicate with ER physician regarding details and after he was evaluated in ER, he was admitted to hospital with pneumonia problem. I saw him this morning. He was still in emergency room. His son-in-law was present with him at bedside. Review of Systems: Constitutional: As mentioned above. Respiratory: As mentioned above. GI: As mentioned above. All other systems reviewed and negative. Allergies: NO KNOWN ALLERGIES. Medications: Amiodarone 100 mg daily, Eliquis 5 mg 2 times a day, escitalopram 10 mg daily, ferrous sulfate 325 mg daily, gabapentin 100 mg takes 2 capsules 2 times a day, memantine 5 mg 2 times a day, metoprolol 25 mg half a tablet 2 times a day, pantoprazole 40 mg daily, Exelon patch 4.6 mg transdermal patch, calcitonin nasal spray daily, Imitrex p.r.n., Topamax 25 mg daily at bedtime. Past Medical History: Significant for migraine, tremor, Alzheimer's disease, hypertension, hyperlipidemia, diverticulosis, benign prostatic hypertrophy, osteoarthritis at multiple sites, insomnia. Past Surgical History: Cervical spine surgery. Family History: Father , had COPD. Mother , details unknown. Brother , had some unknown type of cancer. Social History: Negative for smoking and alcohol use Physical Examination: Vital Signs: Height 6 feet 2 inches, weight 189 pounds, temperature 98.1, pulse 51, respiratory rate 18, blood pressure 110/56, oxygen saturation 98%. General: Awake, alert, oriented, not in distress. HEENT: Head atraumatic, normocephalic. Conjunctivae nonerythematous. Sclerae white. Mouth, no thrush or edema noted. Ears/Nose, no mass, lesion, discharge noted. Neck: Supple. No JVD, lymph nodes, bruit, thyromegaly noted. Lungs: Bilateral good equal air entry. Presence of rales noted in left lower lung field. Not using any accessory muscles of respiration. Heart: Normal heart sounds, no murmur or gallop. Abdomen: Soft, bowel sounds normal. No guarding, rigidity, tenderness, mass, hepatosplenomegaly, distention, or bruit noted. Extremities: No leg edema. No calf tenderness. Skin: No rash, ulcer, cellulitis. Lymphatics: No lymph node enlargement in neck, supraclavicular, infraclavicular region. Neuro: No focal neurological deficit. Chest: Unremarkable. External Genitalia: Deferred. Rectal: Deferred. Laboratory Data: Yesterday, WBC 12.4, hemoglobin 12.3, and platelets 190. Today, WBC 10.7, hemoglobin 10.5, platelets 199. For chemistry yesterday, sodium 140, potassium 3.5, chloride 111, bicarb 21, BUN 14, creatinine 0.87, glucose 161. Lactic acid 1.7. Liver function tests unremarkable. Chest x-ray shows bibasilar infiltrate, left more than right. Impression: 1. Pneumonia. 2. Nausea with vomiting. 3. Anemia, unspecified. 4. Paroxysmal atrial fibrillation. 5. Chronic anticoagulation therapy. 6. Hypertension. 7. Hyperlipidemia. 8. Diverticulosis. 9. Benign prostatic hypertrophy. 10. Osteoarthritis, multiple sites. 11. Insomnia. 12. Alzheimer's disease. 13. Generalized weakness. 14. Debility. Plan: We will go ahead and admit the patient to hospital for further evaluation and management of this problem. The patient is appropriate for inpatient and is expected to spend 2 midnights in the hospital. For pneumonia, we will go ahead and start the patient on Zosyn and continue that per order. We will repeat chest x-ray probably tomorrow for followup. No new cough medication per order and nebulizer treatment per order as the patient has lot of chest congestion. Physical Therapy was consulted to help ambulate the patient. I did discuss with the patient and the patient's son-in-law who was at bedside regarding advance directives and the patient's son-in-law has informed me that in the event of cardiopulmonary arrest, the patient would not have wanted any CPR, defibrillation, or ventilator support, so DNR order will be written in the chart. For his atrial fibrillation, he is on chronic anticoagulation therapy, Eliquis, which we will continue that. He is scheduled to have Watchman's procedure later part of this month. We will go ahead and continue his amiodarone per order which is 100 mg daily as it was reduced during last hospital admission. For hypertension, we will continue his metoprolol per order. For his Alzheimer's disease, we will continue his medication per order and no need for further intervention. For anemia, he takes iron supplement and we will continue that per order. Continue to monitor blood work and no need for further intervention. Total time spent today 80 minutes including review of last hospital admission record from 09/30/2024 admission, review of last 2 office visit records, communication with emergency room physician, review of emergency room visit record, and performing today's evaluation and management. ROBERTH/LAILA Voice ID: [id number] [email or web address]
[2024-11-08] MEDS: TOPIRAMATE 25 MG TAB PO SCH (20:37)
--- NOTE | 2024-11-09 11:49 | EKG ---
Test Date: 2024-11-07 Test Time: 20:40:21 [employer] Control Officer: ELOY MEASUREMENT RESULTS: Intervals: Rate: 92 AL: 234 QRSD: 102 QT: 398 QTc: 492 [place]: P: 66 AL: 234 QRS: -21 T: 78 INTERPRETIVE STATEMENTS: Sinus rhythm with 1st degree AV block Septal infarct, age undetermined Abnormal ECG Compared to ECG 09/30/2024 12:30:36 Myocardial infarct finding now present Sinus bradycardia no longer present Prolonged QT interval no longer present Electronically Signed On 11-09-24 11:48:21 DIRECTORY ASSISTANCE OPERATOR by Jose Garcia
--- NOTE | 2024-11-09 18:09 | RAD REPORT ---
EXAMINATION: ONE VIEW CHEST XR CLINICAL INDICATION: PNEUMONIA TECHNIQUE: Frontal chest projection is submitted. Examination is limited by patient positioning and t echnique. COMPARISON: 11/07/2024 FINDINGS: Moderate bilateral pulmonary opacities, greater on the left, mildly improved since prior study. Small left pleural effusion. The findings suggest pneumonia or pulmonary edema. The heart is upper limit of normal in size. No displaced fractures identified. Cervical spine hardware. IMPRESSION: Mild improvement in left-sided pneumonia since comparative study.
--- NOTE | 2024-11-09 23:00 | PN ---
Date of Progress Note: 11/09/2024 Subjective: The patient was seen this morning for followup. Overall, no new complaints or problems reported by the patient and his daughter was present with him at bedside. He continues to have cough and chest congestion. Objective: Vital Signs: Reviewed. HEENT: Unremarkable. Lungs: Bilateral good equal air entry. Presence of rales noted in both lung yu, unchanged from yesterday. Not in any respiratory distress. Heart: Sounds normal. Abdomen: Soft. Bowel sounds normal. No guarding, rigidity, tenderness, distention. Extremities: No leg edema. Impression: 1. Pneumonia. 2. Atrial fibrillation. 3. Chronic anticoagulation therapy. 4. Generalized weakness. Plan: We will consult Physical Therapy to help ambulate the patient. Consult Social Service to assi st the patient with home health care and home physical therapy. Family is requesting wheelchair, so Social Service will assist with that as well. We will continue current antibiotics and I will see hi m tomorrow for followup. We will repeat chest x-ray later today. ROBERTH/MODL Voice ID: [id number] Report ID: [id number]
[2024-11-10] MEDS: ACETAMINOPHEN 500 MG TAB PO PRN (05:12)
--- NOTE | 2024-11-11 02:56 | PN ---
Date of Progress Note: 11/10/2024 Subjective: The patient was seen this morning for followup. He was lying in bed, not in any distres s. The patient's daughter was with him at bedside. No new complaints or problems reported. The quyen hammond's daughter reported that for last few months, the patient has not been ambulating and family ass ist him with transfer from bed to chair. Yesterday, he stood next to the bed with Physical Therapy. Objective: Vital Signs: Reviewed. HEENT: Unremarkable. Lungs: Bilateral good equal air entry. Presence of rales noted in lung base. Not using any accesso ry muscles of respiration. Heart: Sounds normal. Abdomen: Soft. Bowel sounds normal. No guarding, rigidity, tenderness, distention. Extremities: No leg edema. Impression: 1. Pneumonia. 2. Anemia, unspecified. 3. Atrial fibrillation. 4. Chronic anticoagulation therapy. Plan: We will go ahead and continue current medication, continue physical therapy, and continue curr ent antibiotics. We will discontinue IV fluid. I have informed the patient's daughter this morning that possible discharge this weekend depending on how the patient's condition is. As long as the quyen hammond's condition gets back to baseline and family feels comfortable, then goal is to discharge him to go home. The patient has prescription for Augmentin for home use upon discharge, so he will not nee d any new prescription. I have called and discussed details with Hospitalist regarding this patient and starting tomorrow morning, Hospitalist will take over this patient's care. ROBERTH/MODL Voice ID: [id number] Report ID: [id number]
[2024-11-11 06:20] LABS: Absolute Basophils 0.1 K/uL (0-0.5); Absolute Eosinophils 0.1 K/uL (0-0.5); Absolute Lymphocytes (CBC) 0.5 K/uL (0.7-4.9); Absolute Monocytes 0.4 K/uL (0.1-1.3); Absolute Neutrophil 3.2 K/uL (1.8-8.0); Basophils % 1.2 % (0-1.3); Eosinophils % 2.8 % (0-4.4); Hemoglobin 10.4 g/dL (13.6-17.9); Lymphocytes % 12.2 % (15.3-44.8); MCH 31.5 pg (27.0-35.0); MCHC 32.4 g/dL (32.0-36.0); MCV 97.1 fL (80-100); MPV 8.8 fL (7.6-11.3); Monocytes % 8.7 % (3.3-12.3); Neutrophils % 75.1 % (41.7-73.7); Platelets 216 thou/uL (152-406); Red Cell Distribution Width 18.8 % (12.1-15.2)
[2024-11-11 06:40] LABS: Magnesium 1.9 mg/dL (1.6-2.4)
--- NOTE | 2024-11-11 07:11 | P.PN ---
Date of Service: 11/11/24 Subjective: Objective: Vital Signs: Reviewed. HEENT: Unremarkable. Lungs: Bilateral good equal air entry. Presence of rales noted in lung base. Not using any accessory muscles of respiration. Heart: Sounds normal. Abdomen: Soft. Bowel sounds normal. No guarding, rigidity, tenderness, distention. Extremities: No leg edema. Impression: 1. Pneumonia. 2. Anemia, unspecified. 3. Atrial fibrillation. 4. Chronic anticoagulation therapy. Plan: We will go ahead and continue current medication, continue physical therapy, and continue current antibiotics. We will discontinue IV fluid. I have informed the patient's daughter this morning that possible discharge this weekend depending on how the patient's condition is. As long as the patient's condition gets back to baseline and family feels comfortable, then goal is to discharge him to go home. The patient has prescription for Augmentin for home use upon discharge, so he will not need any new prescription. I have called and discussed details with Hospitalist regarding this patient and starting tomorrow morning, Hospitalist will take over this patient's care.
--- NOTE | 2024-11-11 08:42 | RAD REPORT ---
EXAMINATION: ONE VIEW CHEST XR CLINICAL INDICATION: Male, 89 years old.,pneumonia TECHNIQUE: Frontal chest projection is submitted. Examination is limited by patient positioning and t echnique. COMPARISON: 11/09/2024 FINDINGS: Small left basilar airspace opacity, shows continued mild partial improvement. No pneumothorax or si zable effusion. The heart is normal in size. Mediastinal contours are unremarkable. IMPRESSION: Continued mild partial improvement of left basilar airspace opacity concerning for pneumonitis.
[2024-11-11] MEDS: POTASSIUM 25 MEQ EFFERV TAB PO ONE (08:45)
[2024-11-11] MEDS: KCL 20 MEQ/100 mL IVPB 20 MEQ/100 ML BAG IV SCH (09:20)
[2024-11-11 12:22] VITALS: BP 141/64; TEMP 98.2
[2024-11-11] MEDS ORDERED: KCL 20 MEQ/100 mL IVPB 20 MEQ/100 ML BAG IV SCH ×2 (17:00→19:00)
[2024-11-11 17:45] VITALS: O2SAT 93
== END 2024-11-11 18:00 | disposition home health service (06) | DRG 195 ==
LOC: ER 19:54 → ERHOLD 21:37 → 4TH 11-08 07:11
PROVIDERS: ADMIT Internal Medicine; ATTEND Hospitalist
DX: J18.9 Pneumonia, unspecified organism (principal); I10 Essential (primary) hypertension; E78.5 Hyperlipidemia, unspecified; D64.9 Anemia, unspecified; G47.00 Insomnia, unspecified; I48.0 Paroxysmal atrial fibrillation; M19.09 Primary osteoarthritis, other specified site; N40.0 Benign prostatic hyperplasia without lower urinary tract symptoms; K57.90 Diverticulosis of intestine, part unspecified, without perforation or abscess without bleeding; G30.9 Alzheimer's disease, unspecified; F02.80 Dementia in other diseases classified elsewhere, unspecified severity, without behavioral disturbance, psychotic disturbance, mood disturbance, and anxiety; Z66 Do not resuscitate; Z11.52 Encounter for screening for COVID-19; Z79.899 Other long term (current) drug therapy
CPT/HCPCS: 36415; 71045; 80048; 80053; 82947; 83605; 83735; 84132; 85025; 85610; 85730; 87040; 87804; 87811; 93005; 94640; 96365; 96366; 96375; 97161; 97530; 99285; J2405; J2543; J3480; J7030; J7613

== ENCOUNTER 2024-11-27 09:48 | Emergency (ER) | payer OTHER ==
[2024-11-27 10:50] LABS: Absolute Basophils 0.1 K/uL (0-0.5); Absolute Eosinophils 0.1 K/uL (0-0.5); Absolute Lymphocytes (CBC) 0.6 K/uL (0.7-4.9); Absolute Monocytes 0.5 K/uL (0.1-1.3); Absolute Neutrophil 6.9 K/uL (1.8-8.0); Eosinophils % 0.7 % (0-4.4); Hematocrit 34.9 % (39.6-49.0); Hemoglobin 11.4 g/dL (13.6-17.9); Lymphocytes % 7.2 % (15.3-44.8); MCH 31.6 pg (27.0-35.0); MCHC 32.7 g/dL (32.0-36.0); MCV 96.5 fL (80-100); MPV 8.1 fL (7.6-11.3); Monocytes % 6.3 % (3.3-12.3); Neutrophils % 84.8 % (41.7-73.7); Nucleated Red Blood Cells % 0.1 % (0-0); Platelets 189 thou/uL (152-406); RBC Red Blood Cell Count 3.61 M/uL (4.33-5.43); Red Cell Distribution Width 19.1 % (12.1-15.2)
[2024-11-27 11:05] LABS: AST/SGOT 14 U/L (15-37); Albumin 3.1 g/dL (3.4-5.0); Alkaline Phosphatase 92 U/L (45-117); Anion Gap 8.4 mEq/L (5.0-15.0); BUN Blood Urea Nitrogen 12 mg/dL (7-18); Bicarbonate 24 mEq/L (21-32); Bilirubin Total 0.5 mg/dL (0.2-1.0); Globulin 3.2 g/dL (2.3-3.5); Glomerular Filtration Rate 84 ml/min (=/>90); Glucose Level 102 mg/dL (74-106); Lipase 36 U/L (13-75); Potassium 3.4 mEq/L (3.5-5.1); Protein, Total 6.3 g/dL (6.4-8.2); Sodium Level 142 mEq/L (136-145)
[2024-11-27 11:14] LABS: ALT/SGPT < 14 U/L (16-61)
--- NOTE | 2024-11-27 11:49 | RAD REPORT ---
EXAMINATION: CT ABDOMEN AND PELVIS WITH CONTRAST CLINICAL INDICATION: FLANK PAIN TECHNIQUE: CT abdomen and pelvis was performed, after the administration of IV contrast, as per [facility] protocol. Axial, sagittal and coronal reconstructions were obtained. One or more of the following dose reduction techniques were used: Automated exposure control, adjustment of the mA and k V according to patient size, and iterative reconstruction. Unless otherwise specified, incidental findings do not require dedicated imaging follow-up. COMPARISON: 09/29/2024, 06/17/2024 FINDINGS: LOWER CHEST: Mild patchy basilar lung opacities are present, greater on the left. Trace bilateral ple ural fluid. LIVER: Normal in size and contour. No focal lesion. Grossly unremarkable gallbladder. SPLEEN: Normal size. No focal lesion. PANCREAS: Mild pancreatic atrophy. ADRENALS: Normal; no mass. KIDNEYS: Normal size and contour. No hydronephrosis. GASTROINTESTINAL TRACT: No evidence of free air, significant intra-abdominal free fluid, bowel obstru ction or abscess. There is mild diverticulosis coli of the sigmoid colon without diverticulitis. Moderate stool retention throughout the colon. APPENDIX: Normal appendix. LYMPH NODES: No lymphadenopathy. MUSCULOSKELETAL: Anterior wedge compression fractures are seen lumbar spine, L3 and L4 unchanged sinc e prior study. L2 shows a mild compression deformity estimated at 10-15% which is new since prior study. IMPRESSION: Moderate stool retention is seen throughout the colon. Bibasilar lung opacities with trace pleural fluid may represent infiltrate/pneumonia. Relatively recent mild L2 compression fracture likely osteoporotic in etiology.
[2024-11-27 13:53] LABS: Specific Gravity 1.016 (1.005-1.030); Sqamous Epithelial None Seen /HPF (None Seen); Urine Bacteria None Seen /HPF (<20); Urine Bilirubin NEGATIVE (Negative); Urine Blood Negative (Negative); Urine Clarity Extremely Turbid (Clear); Urine Color Light-Yellow (Yellow); Urine Culture Reflex Order NOT NEEDED; Urine Glucose NEGATIVE (Negative); Urine Ketones NEGATIVE (Negative); Urine Microscopic Reflex YN ORDER UMIC; Urine Mucus Slight /HPF (None Seen); Urine Nitrite NEGATIVE (Negative); Urine Protein NEGATIVE (Negative); Urine RBC <5 /HPF (None Seen); Urine Urobilinogen Normal (Normal); Urine WBC <5 /HPF (<5)
--- NOTE | 2024-11-27 14:01 | ER ---
Nurse's Notes [facility] Name: Ramesh Mesa Jr Age: 89 yrs Sex: Male : 1935 Arrival Date: 11/27/2024 Time: 09:48 Bed 4 Private MD: Diagnosis: Low back pain Presentation: 11/27 10:00 Chief complaint: Pt's daughter reports pt had watchman procedure 11/23/[address] yamila Turner (cardiology) and has been c/o back pain since 11/24/2024. 10:00 Coronavirus screen: At this time, the client does not indicate any symptoms associated aa5 with coronavirus-19. Ebola Screen: Patient denies travel to an Ebola-affected area in the 21 days before illness onset. Initial Sepsis Screen: Does the patient meet any 2 criteria? No. Patient's initial sepsis screen is negative. Does the patient have a suspected source of infection? No. Patient's initial sepsis screen is negative. Risk Assessment: Do you want to hurt yourself or someone else? Patient reports no desire to harm self or others. Onset of symptoms was November 24, 2024. 10:00 Acuity: EDIN 3 aa5 10:00 Method Of Arrival: Wheelchair aa5 Historical: - Allergies: 10:14 No Known Allergies; aa5 - PMHx: 10:14 Dementia; depressive disorder; Hypertensive disorder; Migraines; neuropathy; right hand aa5 tremors; - Family history:: not pertinent. Screenin:13 Abuse screen: Denies threats or abuse. Nutritional screening: No deficits noted. aa5 Tuberculosis screening: No symptoms or risk factors identified. 10:13 [facility] ED Fall Risk Assessment (Adult) History of falling in the last 3 months, aa5 including since admission Yes- fall prone (multiple falls) (3 pts) Confusion or Disorientation Yes (5 pts) Intoxicated or Sedated No (0 pts) Impaired Gait Yes (1 pt) Mobility Assist Device Used Yes (1 pt) Altered Elimination Yes (1 pt) Score/Fall Risk Level 3 or more points = High Risk Oriented to surroundings, Maintained a safe environment, Educated pt \T\ family on fall prevention, incl call for assistance when getting out of bed, Assessed \T\ reinforced patient's understanding of fall precautions. Assessment: 10:00 General: Appears comfortable, Behavior is calm, cooperative. Pain: Complains of pain in aa5 left mid back and right mid back Pain currently is 0 out of 10 on a pain scale. Neuro: Level of Consciousness is awake, obeys commands, confused, Oriented to person, place. Cardiovascular: Patient's skin is warm and dry. Respiratory: Airway is patent Respiratory effort is even, unlabored, Respiratory pattern is regular, symmetrical. GI: Abdomen is round non-distended, Last BM was November 22, 2024. Bowel sounds present X 4 quads. Abd is soft and non tender X 4 quads. Patient currently denies nausea, vomiting. : Brief noted. EENT: No signs and/or symptoms were reported regarding the EENT system. Derm: Skin is pink, warm \T\ dry. Large dark purple, green, yellow bruising noted to right groin. Musculoskeletal: 11:40 Reassessment: Patient and/or family updated on plan of care and expected duration. Pain aa5 level reassessed. Pt back from CT scan. . 11:40 Neuro: Level of Consciousness is awake, obeys commands, confused, Oriented to person, aa5 place. Respiratory: Airway is patent Respiratory effort is even, unlabored, Respiratory pattern is regular, symmetrical. Derm: Skin is pink, warm \T\ dry. 13:31 Reassessment: Pt cleaned of urinary incontinence, clean brief applied. Pt also aa5 repositioned in bed. . Neuro: Level of Consciousness is awake, obeys commands, confused, Oriented to person, place. Respiratory: Airway is patent Respiratory effort is even, unlabored, Respiratory pattern is regular, symmetrical. Derm: Skin is pink, warm \T\ dry. 14:20 Neuro: Level of Consciousness is awake, obeys commands, confused, Oriented to person, aa5 place. Respiratory: Airway is patent Respiratory effort is even, unlabored, Respiratory pattern is regular, symmetrical. Derm: Skin is pink, warm \T\ dry. Vital Signs: 10:08 BP 131 / 66; Pulse 55; Resp 16; Temp 98.2; Pulse Ox 97% on R/A; Weight 90.72 kg; Height em1 6 ft. 2 in. ; 11:08 BP 118 / 63; Pulse 55; Resp 16 S; Pulse Ox 95% on R/A; aa5 12:08 BP 119 / 62; Pulse 46; Resp 14 S; Pulse Ox 95% on R/A; aa5 13:32 BP 137 / 59; Pulse 47; Resp 14 S; Pulse Ox 96% on R/A; aa5 14:00 BP 137 / 75; Pulse 48; Resp 18 S; Pulse Ox 98% on R/A; aa5 10:08 Body Mass Index 25.68 (90.72 kg, 187.96 cm) em1 ED Course: 09:50 Patient arrived in ED. am2 09:52 Jna Garcia MD is Attending Physician. rt 10:00 Arm band placed on Patient placed in an exam room, on a stretcher. aa5 10:00 Patient has correct armband on for positive identification. Placed in gown. Bed in low aa5 position. Call light in reach. Side rails up X2. Adult w/ patient. Pulse ox on. NIBP on. 10:14 Brianne Li RN is Primary Nurse. aa5 10:25 Triage completed. aa5 10:38 Initial lab(s) drawn, by me, sent to lab. Inserted saline lock: 20 gauge in right le1 forearm, using aseptic technique. Blood collected. Flushed with 10 mL NS. 11:28 CT Abd/Pelvis - IV Contrast Only In Process Unspecified. EDMS 13:31 Straight cath inserted, using sterile technique, 16 Fr. Specimen obtained. Patient aa5 tolerated well. 14:20 IV discontinued, intact, bleeding controlled, No redness/swelling at site. Pressure aa5 dressing applied. 14:20 No provider procedures requiring assistance completed. aa5 Administered Medications: No medications were administered Medication: 10:31 VIS not applicable for this client. aa5 Outcome: 14:00 Discharge ordered by . rt 14:20 Discharged to home via wheelchair, with family, aa5 14:20 Condition: stable 14:20 Discharge instructions given to family, Instructed on discharge instructions, follow up and referral plans. Demonstrated understanding of instructions, follow-up care, 14:24 Patient left the ED. aa5 Signatures: Dispatcher [employer] EDMS Melvin De Paz em1 Brianne Li, RN RN aa5 Chata Galvan am2 Jan Garcia MD MD rt David Ryan RN RN le1 Corrections: (The following items were deleted from the chart) 10:31 10:00 Derm: Skin is pink, warm \T\ dry. aa5 aa5
--- NOTE | 2024-11-27 14:01 | EDPHYS ---
Physician Documentation [facility] Name: Ramesh Mesa Jr Age: 89 yrs Sex: Male : 1935 Arrival Date: 11/27/2024 Time: 09:48 Bed 4 Private MD: ED Physician Jan Garcia HPI: 11/27 18:03 This 89 yrs old Male presents to ER via Wheelchair with complaints of Flank Pain. rt 18:03 Patient presents to the ED with about 4 days of a bilateral upper back pain. Denies rt urinary symptoms, injury, other acute complaints, pain is aching nature, nonradiating, moderate severity, no other aggravating or alleviating factors.. Historical: - Allergies: 10:14 No Known Allergies; aa5 - PMHx: 10:14 Dementia; depressive disorder; Hypertensive disorder; Migraines; neuropathy; right hand aa5 tremors; - Family history:: not pertinent. ROS: 18:03 Constitutional: Negative for fever, chills, and weight loss, Cardiovascular: Negative rt for chest pain, palpitations, and edema, Respiratory: Negative for shortness of breath, cough, wheezing, and pleuritic chest pain, Abdomen/GI: Negative for abdominal pain, nausea, vomiting, diarrhea, and constipation, MS/Extremity: Negative for injury and deformity, Skin: Negative for injury, rash, and discoloration, Neuro: Negative for headache, weakness, numbness, tingling, and seizure, 18:03 Back: Positive for pain at rest, pain with movement, Negative for injury or acute deformity, Exam: 18:03 Constitutional: This is a well developed, well nourished patient who is awake, alert, rt and in no acute distress. Head/Face: Normocephalic, atraumatic. Chest/axilla: Normal chest wall appearance and motion. Nontender with no deformity. No lesions are appreciated. Cardiovascular: Regular rate and rhythm with a normal S1 and S2. No gallops, murmurs, or rubs. Normal PMI, no JVD. No pulse deficits. Respiratory: Lungs have equal breath sounds bilaterally, clear to auscultation and percussion. No rales, rhonchi or wheezes noted. No increased work of breathing, no retractions or nasal flaring. Abdomen/GI: Soft, non-tender, with normal bowel sounds. No distension or tympany. No guarding or rebound. No evidence of tenderness throughout. Skin: Warm, dry with normal turgor. Normal color with no rashes, no lesions, and no evidence of cellulitis. MS/ Extremity: Pulses equal, no cyanosis. Neurovascular intact. Full, normal range of motion. Neuro: Awake and alert, GCS 15, oriented to person, place, time, and situation. Cranial nerves II-XII grossly intact. Motor strength 5/5 in all extremities. Sensory grossly intact. Cerebellar exam normal. Normal gait. Vital Signs: 10:08 BP 131 / 66; Pulse 55; Resp 16; Temp 98.2; Pulse Ox 97% on R/A; Weight 90.72 kg; Height em1 6 ft. 2 in. ; 11:08 BP 118 / 63; Pulse 55; Resp 16 S; Pulse Ox 95% on R/A; aa5 12:08 BP 119 / 62; Pulse 46; Resp 14 S; Pulse Ox 95% on R/A; aa5 13:32 BP 137 / 59; Pulse 47; Resp 14 S; Pulse Ox 96% on R/A; aa5 14:00 BP 137 / 75; Pulse 48; Resp 18 S; Pulse Ox 98% on R/A; aa5 10:08 Body Mass Index 25.68 (90.72 kg, 187.96 cm) em1 MDM: 09:59 Medical Screening Exam initiated rt 18:03 Differential diagnosis: Mechanical back pain, pyelonephritis, ureteral stone. Data rt reviewed: vital signs, nurses notes, lab test result(s), radiologic studies. Management of patient was discussed with the following: Primary Care Provider: Discussed with patient's primary, he will call the patient and medications, no indications for admission at this time, he will follow-up patient as an outpatient.. Independent interpretation of the following test(s) in the Emergency Department CT Scan: My interpretation is No ureteral stone seen on interpretation of CT scan images. Care significantly affected by the following chronic conditions: Hypertension. Counseling: I had a detailed discussion with the patient and/or guardian regarding the historical points, exam findings, and any diagnostic results supporting the discharge/admit diagnosis, lab results, radiology results, the need for outpatient follow up, to return to the emergency department if symptoms worsen or persist or if there are any questions or concerns that arise at home. Response to treatment: the patient's symptoms have resolved after treatment, the patient's pain is gone. 11/27 10:06 Order name: CBC with Diff; Complete Time: 11:50 rt 11/27 10:06 Order name: CMP; Complete Time: 11:50 rt 11/27 10:06 Order name: Lipase; Complete Time: 11:50 rt 11/27 10:06 Order name: Urinalysis w/ reflexes; Complete Time: 13:53 rt 11/27 10:06 Order name: CT Abd/Pelvis - IV Contrast Only; Complete Time: 11:50 rt 11/27 10:06 Order name: IV Saline Lock; Complete Time: 10:37 rt 11/27 10:06 Order name: Labs collected and sent; Complete Time: 10:37 rt 11/27 13:31 Order name: Straight Cath - Urine; Complete Time: 13:31 aa5 Administered Medications: No medications were administered Disposition Summary: 11/27/24 14:00 Discharge Ordered Notes: Location: Home rt Problem: new rt Symptoms: have improved rt Condition: Stable rt Diagnosis - Low back pain rt Followup: rt - With: Private Physician - When: 2 - 3 days - Reason: Discharge Instructions: - Discharge Summary Sheet rt - Acute Back Pain, Adult rt Forms: - Medication Reconciliation Form rt - Antibiotic Education rt - Prescription Opioid Use rt - Patient Portal Instructions rt - Leadership Thank You Letter rt Signatures: Dispatcher [employer] Brianne Gaytan, RN RN aa5 Jan Garcia MD MD rt
[2024-11-27 14:41] VITALS: TEMP 98.2
[2024-11-27 14:46] VITALS: BP 137/59; O2SAT 96
== END 2024-11-27 14:24 | disposition home or self-care (01) ==
LOC: ER 09:48
DX: M54.50 Low back pain, unspecified (principal)
CPT/HCPCS: 85025; 81001; 36415; 83690; 80053; 74177; 51702; 99284; Q9967